=== PATIENT | female | born 1955 | race Caucasian/White ===

== ENCOUNTER 2025-02-19 13:44 | Inpatient (IN) | payer OTHER, SELFPAY ==
--- OUTSIDE RECORDS SUMMARY | 2025-02-19 14:29 | XMS_ITS | Data Portability ---
Author Organization [facility], , [facility] Address [address] [place] [address] Care Team Providers Care Systems Librarian Name Role Phone MACY MURPHY [facility] [phone] Assessment No assessment recorded. Plan of Treatment Reminders Order Date Submit Date Provider Last Modified By Organization Details Last Modified Time Details Appointments None recorded. Lab biopsy, skin - right shoulder 2018 019 [employer] [facility] (Centralized Electronic Ordering - All Locations), Patient Can Go To The Location Of Their Choice, [facility] 9 14:20:32 biopsy, skin - Skin Bx. right shoulder 2018 019 [facility], [address] [place] [address], [address], 9 13:25:48 TSH, serum or plasma 2018 019 [facility], [address] [place] [address], [address], 9 13:45:25 lipid panel, serum 2018 019 [facility], [address] [place] [address], [address], 9 12:26:55 BMP, serum or plasma 2018 019 [facility], [address] [place] [address], [address], 9 12:26:54 TSH, serum or plasma 2017 018 [facility], [address], [place], [address], 8 14:23:37 Referral None recorded. Procedures None recorded. Surgeries None recorded. Imaging MAMMO, screening , tomosynth esis, bilateral 2018 019 [facility] (Imaging), [address], [place], [address], 9 10:48:31 Medication Orders levothyro xine 75 mcg tablet 2017 018 [id number], [address] [facility], [place], [place], [id number], 9 09:56:15 Patient TargetsNo targets recorded. Patient Instructions Encounter Date Encounter Id Patient Instructions Last Modified By Organization Details Last Modified Time 04/04/2019 [id number] well visit, wome n 50 to 65: care instructions [email or web address] Not available 04/07/2019 17:51:16 After a discussion of treatment options, which included consideration of best practices, patient preferences, and the patient's individual lifestyle and treatment goals, as well as consideration and attempted mitigation of any barriers to meeting the patient's goals, the above treatment plan and objectives were adopted. Good to see you today! - Please review the patient education provided to you today. - Take your medications as prescribed, and please let us know if you have any unwanted or unexpected side effects. - Keep your follow-up appointments as scheduled. - Please let us know if you are worse in any way, or if you have any further questions or concerns. - We are digital solutions architect 24 hours a day, 7 days a week by phone: [phone]. [email or web address] Not available 04/07/2019 17:55:46 05/22/2019 [id number] Wound Care Keep wound clean and dry. Change dressing daily as instructed. Use bacitracin or neosporin to prevent infection. Call the office if you develop redness, pain, swelling, or discharge from the wound. [email or web address] Not available 05/22/2019 12:18:27 Reason for Referral None Reported. Results Created Date Observation Date Name Description Value Unit Range Abnormal Flag Note LastModifiedBy Organization Detail LastModifiedTime 11/12/19 18 11/12/2017 TSH, serum or plasm a TSH 6.30 uIU/m L 0.50-6 .00 high The Ameri can Colle ge of Endoc rinol ogy and Ameri can Thyro id Assoc iatio n recom mend goal TSH value s betwe en 0.4-4 .0 mIU/m L. Not Available [address], [address], 11/12/2017 13:28:48 01/15/20 18 01/14/2018 TSH, serum or plasm a TSH 0.83 uIU/m L 0.50-6 .00 The Ameri can Colle ge of Endoc rinol ogy and Ameri can Thyro id Assoc iatio n recom mend goal TSH value s betwe en 0.4-4 .0 mIU/m L. Not Available [address], [address], 01/14/2018 14:23:37 05/19/20 19 05/19/2019 BMP, serum or plasm a glucose 91 mg/dL 70-100 Not Available [address], [address], 05/19/2019 12:26:54 05/19/2005/19/2019 BMP, serum or plasm a BUN 13 mg/dL 7-18 Not Available [address], [address], 05/19/2019 12:26:54 05/19/2005/19/2019 BMP, serum or plasm a creatinine 0.7 mg/dL 0.8-1. 3 low Not Available [address], [address], 05/19/2019 12:26:54 05/19/2005/19/2019 BMP, serum or plasm a B/C 18.6 ratio Not Available [address], [address], 05/19/2019 12:26:54 05/19/2005/19/2019 BMP, serum or plasm a GFR -non 94.7 mL/mi n Recom jairo d GFR by the Natio nal Kidne y Found ation >60 mL/mi n/1.7 3m2 - Eneida l <60 mL/mi n/1.7 3m2 - Chron ic Kidne y Disea se <15 mL/mi n/1.7 3m2 - Kidne y Failu re Not Available [address], [address], 05/19/2019 12:26:54 05/19/20 19 05/19/2019 BMP, serum or plasm a GFR - if 108.9 mL/mi n For Afric an Ameri can patie nts: Resul ts Multi plied by 1.21 Not Available [address], [address], 05/19/2019 12:26:54 05/19/2005/19/2019 BMP, serum or plasm a sodium 144 mmol/ L 136-14 5 Not Available [address], [address], 05/19/2019 12:26:54 05/19/2005/19/2019 BMP, serum or plasm a potassium 5.0 mmol/ L 3.5-5. 1 Not Available [address], [address], 05/19/2019 12:26:54 05/19/2005/19/2019 BMP, serum or plasm a chloride 107 mmol/ L 96-107 Not Available [address], [address], 05/19/2019 12:26:54 05/19/2005/19/2019 BMP, serum or plasm a anion gap 8.5 5.0-15 .0 Not Available [address], [address], 05/19/2019 12:26:54 05/19/2005/19/2019 BMP, serum or plasm a CO2 29 mmol/ L 21-32 Not Available [address], [address], 05/19/2019 12:26:54 05/19/2005/19/2019 BMP, serum or plasm a calcium 9.4 mg/dL 8.5-10 .3 Not Available [address], [address], 05/19/2019 12:26:54 05/19/2005/19/2019 lipid panel , serum cholesterol 232 mg/dL <200 mg/dl Aleida able 200-2 39 mg/dl Borde rline High >240 mg/dl High Not Available [address], [address], 05/19/2019 12:26:55 05/19/2005/19/2019 lipid panel , serum triglyceride s 102 mg/dL <150 mg/dL Eneida l 150-1 99 mg/dL Borde rline High 200-4 99 mg/dL High >500 mg/dL Very High Not Available [address], [address], 05/19/2019 12:26:55 05/19/2005/19/2019 lipid panel , serum direct HDL 63 mg/dL <40 mg/dl - Major Risk for CHD >60 mg/dl - Negat clau Risk for CHD Not Available [address], [address], 05/19/2019 12:26:55 05/19/2005/19/2019 LDL, calcu lated , serum (OBS) LDL - calculated 148.6 RISK CATEG ORY LDL GOAL _ CHD or CHD Risk Equiv alent s <100 mg/dl (10-y ear risk >20%) 2+ Risk Facto rs <130 mg/dl (10-y ear risk <= 20%) 0-1 Risk Facto r? <160 mg/dl ? Ana t all peopl e with 0-1 risk facto r have a 10 year risk <10%, thus 10 year risk asses ment in peopl e with 0-1 risk facto r is not necreggie alex. Not Available [address], [address], 05/19/2019 12:26:56 05/19/20 19 05/19/2019 TSH, serum or plasm a TSH 1.28 uIU/m L 0.50-6 .00 The Ameri can Colle ge of Endoc rinol ogy and Ameri can Thyro id Assoc iatio n recom mend goal TSH value s betwe en 0.4-4 .0 mIU/m L. Not Available [address], [address], 05/19/2019 13:45:25 05/22/20 19 05/22/2019 biops y, skin results Patie nt Name: ELLA Thacker, VIKRAM Lab Acces [place] #: [id number] Patie nt : 1954 (Age: 64) Colle ction Date: 2018 Acces [place] Date: 2018 Sign Out Date: 2018 Tissu e Sourc e: 1:RIG HT SHOUL DONG SKIN BX Final Diagn osis: Skin, right shoul dong (biop sy): - Basal cell carci noma, infil trati ve/sc leros ing/m orphe aform type. - The tumor exten ds to the base and perip heral shadia ns of the submi tted tissu e. Prima ry Patho logis t:Joel Ledezma M.D. elect poonam horvath marly d out by: Keo Ledezma M.D. 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 Recei alyse in forma divya is a soft white skin punch with a diame ter of 0.4 cm and a depth of 0.3 cm. The speci men is inked , bisec avtar and is entir sally submi tted. 1-2 piece s, x3, EOE. (EG)* Phone #: [phone], On-[place] ll Patho logis t: [id number] Not Available [facility] (Centralized Electronic Ordering - All Locations) Patient Can Go To The Location Of Their Choice, [address] 05/26/2019 13:10:41 06/24/2006/24/2019 biops y, skin results Patie nt Name: VIKRAM HERNADEZ Lab [place]es [place] #: [id number] Patie nt : 1954 (Age: 64) Colle ction Date: 2018 [place]es [place] Date: 2018 Sign Out Date: 2018 Tissu e Sourc e: 1:RIG HT SHOUL DONG Final Diagn osis: Skin, right shoul dong (shav e excis ion): - Resid ual Basal cell carci noma, infil trati ve type. - The tumor exten ds to the base of the submi tted tissu e. - Lowrys l scar with react clau biops y site miranda es. Prima ry Patho logis t:Hanna canseco M.D. elect poonam pratt d out by: Renny canseco M.D. / [facility] Clini ana Histo ry: Neopl asm of uncer tain behav ior of skin Gross Descr iptio n: Label ed rig t shoul dong . Recei alyse in forma divya is a 1.3 x 1.1 x 0.1 cm soft head, brown varie gated skin shave . The speci men is inked , seria lly secti oned and is entir sally submi tted. 1 and 2-2 piece s, x2, shave orien tatio n. (EG)* Phone #: [phone], On-N[place] ll Patho logis t: [id number] Not Available [facility] (Centralized Electronic Ordering - All Locations) Patient Can Go To The Location Of Their Choice, [address] 06/26/2019 18:48:06 02/12/2002/12/2020 SARS CoV 2 RNA (COVI D-19) , QL, senior interactive developer-P CR, respi rator y speci men covid-19 source NASAL SWAB Not Available [facility] (Out[facility]) [address] [place], [address], 02/12/2020 10:54:04 02/12/20 20 02/12/2020 SARS CoV 2 RNA (COVI D-19) , QL, senior interactive developer-P CR, respi rator y speci men covid testing status In-rakan se testin g being perfor med Not Available [facility] (Outpatient) [address] [place], [address], 02/12/2020 10:54:04 02/12/20 20 02/12/2020 SARS CoV 2 RNA (COVI D-19) , QL, senior interactive developer-P CR, respi rator y speci men specimen source NASAL Not Available [facility] (Out[facility]) [address] [place], [address], 02/12/2020 11:30:32 02/12/20 20 02/12/2020 SARS CoV 2 RNA (COVI D-19) , QL, senior interactive developer-P CR, respi rator y speci men sars-cov-2 result Negati ve negati ve Negat clau resul ts do not precl ude SARS- CoV-2 infec tion and shoul d not be used as the sole basis for patie nt manag ement decis ions. Negat clau resul ts must be combi daisha with clini ana obser vatio ns, patie nt histo ry, and epide miolo gical infor matio n. Testi ng was perfo rmed using the Abbot t ID NOW COVID -19 assay perfo rmed on the Abbot t ID NOW Instr ument . Fact sheet s for this Emerg ency Use Autho bre ion can be found at the [employer] links : For Healt hcare Provi ders: https ://ww w.fda .gov/ media /7685 23/do wnloa d For Patie nts: https ://ww w.fda .gov. media /1365 24/do wnloa d. Not Available [facility] (Outpatient) [address] [facility], [place], [address], 02/12/2020 11:30:32 02/13/20 20 02/16/2020 patho logy study path report [facility] [address] [place] [address] Lab Direc tor: Melisa ramos MD Surgi ana Patho logy Repor t Acces [place] #: [id number] FINAL PATHO LOGIC DIAGN OSIS: A. STOMA CH ANTRU M, BIOPS Y: No patho logic abnor malit y. B. GASTR OESOP HAGEA L JUNCT ION, BIOPS Y: Squam ocolu mnar junct ion with react clau miranda es. Negat clau for compl ete intes tinal metap lasia and dyspl kasey. C. MID ESOPH CARMEN, BIOPS Y: Gastr ic mucos a with no patho logic abnor malit y (poss ible carry over) Discu ssed with Dr. Brijesh zambrano on . Genevieve ctron icall y Marly d Out By Derek walsh MD By his/h er agustina blanco above , the patho logis t liste d as rosario ochoa the Final Diagn osis certi fies that he/sh e has perso anh revie wed this case and confi rmed or corre cted the diagn osis. CLINI ANA HISTO RY Dysph agia SPECI MENS SUBMI TTED: A: GASTR IC ANTRU M, BIOPS Y B: GASTR OESOP HAGEA L JUNCT ION BIOPS Y C: MID ESOPH CARMEN, BIOPS Y GROSS DESCR IPTIO N A. GASTR IC ANTRU M, BIOPS Y: Forma divya: 2 fragm ents 0.3 cm each A1 total . B. GASTR OESOP HAGEA L JUNCT ION BIOPS Y: Forma divya: 2 fragm ents 0.1 and 0.2 cm B1 total . C. MID ESOPH CARMEN, BIOPS Y: Forma divya: 4 fragm ents 0.1 cm each C1 total . DN Gross ing Staff : LEYLA Patie nt Name: VIKRAM HERNADEZ : 1954 (Age: 64) Sex: F 3 Insti tutio n: [facility] Locat ion: [facility] Date of Opera tion: Date of Acces [place]: Repor avtar: 2019 15:06 Resul ts To: Scott zambrano MD, BS Raoul anthony MD Not Available [facility] (Out[facility]) [address] [place], [address], 02/16/2020 15:06:55 05/22/20 19 05/22/2019 MAMMO , scree jyoti, tomos ynthe sis, bilat eral OBSERV ATION: COMPAR EYAD: 2010 throug h 2015 Bilate ral digita l mammog dilan utiliz ing 3D tomosy nthesi s with 2D recons tructi on. Comput er-aid ed detect ion system also utiliz ed. The breast s are compos ed of scatte red fibrog landul ar tissue . The overal l appear ance of the breast s is unchan ged. No new mass, asymme try, calcif icatio ns, or skin findin gs of concer n have become appare nt. IMPRES [place]: Stable appear ance of the breast s. No radiog raphic eviden ce of malign calvin. In the absenc e of a suspic ious palpab le abnorm ality, routin e screen ing mammog dilan is recomm ended. BI-RAD S CATEGO RY 1 - NEGATI VE Result letter sent to dimitry t. Densit y - B POS: [facility] Electr onical ly signed Readrhiannon ochoa Physic bladimir: Shreyas ward MD [email or web address] [facility] ([facility]) [address], [place], [address], 06/05/2019 07:02:03 Result Notes None recorded. Problems Name Problem SNOMED Code Status Onset Date Resolution Date Notes Provider Name and Address Organization Details Recorded Time Skin lesion 27018353 Active 2015 Freya Espitia MD [address] [place] [address] [place], [address], [facility] 6 10:03:52 Major depressive disorder 234224610 Active 2015 Freya Espitia MD [address] [place], [place] [address], [address], [facility] 6 10:05:32 Hypothyroidism 60889446 Active 2017 Freya Espitia MD [address] [place] [address] [place], [address], [facility] 8 11:48:44 Problem Notes None recorded. Procedures Surgical History Date Name Laterality Status Provider Name and Address Organization Details Recorded Time 019 Electrodessication and Curettage completed Shreyas Carney MD [address] [place] [address], [phone], [facility] 06/24/2019 17:58:23 019 Suture/staple Removal completed Sherri Kent LPN [facility] 05/29/2019 13:42:27 019 Biopsy skin -Punch completed Yanique Hardin NP [address] [place] [address], [phone], [facility] 05/22/2019 12:17:34 Imaging Results Imaging Date Name Status LastModified by Organiz ation Details LastModified Time 05/22/2019 MAMMO, screening, tomosynthesis, bilateral completed [email or web address] [facility]) [address], [place], [address], 06/05/2019 07:02:03 Procedure Notes None recorded. Medical Equipment None Reported. Allergies Allergen ID Allergen Name Allergen Category Reaction Reaction Severity Criticality Documentation Date Start Date Code Code System Note Provider Name and Address Organization Details Recorded Time doxycycli ne Not available rash Not available Not available 04/28/2017 3640 RxNorm - while being treat ed for lyme Rebeca Ortiz D.O. [address] [place], [address], [facility] 7 10:54:47 Lamictal medicatio n rash severe Not available 04/28/2017 5[address]27 2 RxNorm - Johny Weinberg on Freya Espitia MD [address] [place] [address], [place], [address], [facility] 7 09:21:26 Medications Name Sig Start Date Stop Date Status Note LastModified by Organization Details LastModified Time bupropion HCl SR 150 mg tablet,12 hr sustained-r elease Take 1 tablet 3 times a day by oral route. 07/24 completed Not Available Not Available Not Available venlafaxine 75 mg tablet Take 1 tablet every day by oral route. 04/26 completed Not Available Not Available Not Available benzonatate 200 mg capsule Take 1 capsule 3 times a day by oral route as needed for 14 days. 05/03 completed Not Available Not Available Not Available Claritin 10 mg tablet Take 1 tablet every day by oral route for 30 days. 2014 active Not Available Not Available Not Avai lable sertraline 100 mg tablet Take 1 tablet twice a day by oral route. 05/03 completed Not Available Not Available Not Available venlafaxine ER 150 mg capsule,ext ended release 24 hr take 2 capsules by mouth once daily 04/04 completed Not Available Not Available Not Available cyanocobala min (vit B-12) 1,000 mcg tablet take 1 tablet by mouth once daily active Not Available Not Available No t Available melatonin 3 mg tablet Take 1 tablet as needed by oral route at bedtime. 09/17 completed Not Available Not Available Not Available lithium carbonate ER 450 mg tablet,exte nded release Take 1 tablet every day by oral route. 04/04 completed Not Available Not Available Not Available lamotrigine 25 mg tablet 2 tablets daily 04/28 completed Not Available Not Available Not Available levothyroxi ne 75 mcg tablet take 1 tablet by mouth once daily active Not Available Not Available No t Available Macrobid 100 mg capsule Take 1 capsule every 12 hours by oral route for 3 days. 07/30 completed Not Available Not Available Not Available alprazolam 0.5 mg tablet 06/24 completed Not Available Not Available Not Available trazodone 100 mg tablet Take 1 tablet every day by oral route for 14 days. active Not Available Not Available No t Available levothyroxi ne 50 mcg tablet Take 1 tablet every day by oral route as directed. 2018 active Not Available Not Available Not Avai lable divalproex ER 500 mg tablet,exte nded release 24 hr 2 at bedtime 11/21 completed Not Available Not Available Not Available omeprazole 20 mg capsule,del ayed release 04/04 completed Not Available Not Available Not Available doxycycline hyclate 100 mg tablet Take 1 tablet twice a day by oral route for 21 days. 04/28 completed Not Available Not Available Not Available divalproex ER 250 mg tablet,exte nded release 24 hr 09/17 completed Not Available Not Available Not Available doxycycline hyclate active Not Available Not Available Not Available Zostavax (PF) 19,400 unit/0.65 mL subcutaneou s suspension 04/26 completed Not Available Not Available Not Available GaviLyte-N 420 gram oral solution 07/24 completed Not Available Not Available Not Available lurasidone 40 mg tablet Take 1 tablet twice a day by oral route. 04/04 completed Not Available Not Available Not Available Banophen 50 mg capsule TAKE 1 CAPSULE BY MOUTH AT BEDTIME 04/26 completed Not Available Not Available Not Available bupropion HCl XL 450 mg 24 hr tablet, extended release 04/04 completed Not Available Not Available Not Available Trintellix 5 mg tablet Take 3 tablets every day by oral route. active Not Available Not Available No t Available bupropion HCl 150 mg tablet,12 hr sustained-r elease(smok ing deterrent) Take 1 tablet 3 times a day by oral route. 02/14 completed Not Available Not Available Not Available Vitals Date Recorded Body height Body mass index (BMI) Body weight Heart rate Systolic blood pressure Diastolic blood pressure Provider Name and Address Organization Details Last Updated DateTime 8 162.56 cm 27.4 kg/m2 91693.3 4 g 70 /min 116 mm[Hg] 72 mm[Hg] Suha Pham [facility] 8 11:26:54 Date Recorded Body height Body mass index (BMI) Body weight Heart rate Provider Name and Address Organization Details Last Updated DateTime 04/04/2019 161.93 cm 24.6 kg/m2 39531.12 g 60 /min Brittany Mart[facility]nez [facility] 04/04/2019 11:26:25 Date Recorded Body height Body mass index (BMI) Body weight Oxygen saturation Oxygen saturation in Arterial blood by Pulse oximetry Heart rate Systolic blood pressure Diastolic blood pressure Provider Name and Address Organization Details Last Updated DateTime 9 161.93 cm 25.4 kg/m2 86266.0 8 g 97 % 97 % 105 /min 116 mm[Hg] 80 mm[Hg] Suha Pham [facility] 9 11:29:50 Date Recorded Body height Body mass index (BMI) Body weight Heart rate Systolic blood pressure Diastolic blood pressure Provider Name and Address Organization Details Last Updated DateTime 9 161.93 cm 25.1 kg/m2 19375.8 9 g 60 /min 120 mm[Hg] 82 mm[Hg] Johnathon Auguste [facility] 9 10:19:58 Social History Question Answer Notes LastModified by Organizat ion Details LastModified Time Tobacco Smoking Status Never Smoker [facility] 15:11:33 Do You Have An Advance Directive? Yes - Marquita Information not available 02/03/2013 Do You Wear A Helmet When Biking? Yes Information not available 02/11/2014 What Is Your Level Of Caffeine Consumption? Moderate Coffee Information not available 02/03/2013 How Much Tobacco Do You Chew? None Information not available 02/03/2013 What Type Of Diet Are You Following? VEGETARIAN Eats Fish Information not available 02/03/2013 Which Illicit Or Recreational Drugs Have You Used? None Information not available 02/03/2013 Education 4 Year College Informatio n not available 02/03/2013 How Many Days In The Past Year Have You Had A Heavy Drinking Consumption (4+ Female, 5+ Male)? 0 Information not available 07/24/2016 Are There Any Guns Present In Your Home? No Information not available 02/03/2013 Live Alone Or With Others? With Others Information not available 02/03/2013 Patient Has Health Care Proxy Signed And In Chart No [email or web address] Information not available 09/05/2018 Marital Status - Marquita mortensen Information not available 02/03/2013 Mosquito Repellent Used Routinely No Information not available 02/03/2013 What Was The Date Of Your Most Recent Tobacco Screening? 06/24/2019 [email or web address] Information not available 06/24/2019 How Many Children Do You Have? 1 Son Information not available 02/03/2013 Seat Belts Used Routinely Yes Information not available 02/03/2013 Are You Sexually Active? Yes Information not available 02/03/2013 Smoke Alarm In Home Yes Information not available 02/03/2013 How Much Tobacco Do You Smoke? No Information not available 05/22/2019 General Stress Level Medium Information not available 02/11/2014 Do You Use Sunscreen Routinely? Yes Information not available 02/03/2013 Sex: Unknown Functional Status Question Answer Note LastModified by Organizat ion Details LastModified Time What is your level of alcohol consumption? None [email or web address] Information not available 04/26/2017 Do you or have you ever used smokeless tobacco? 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 Never used electronic cigarettes Information not available 05/22/2019 Mental Status None recorded. Family History Nothing Reported. Medical History No medical history recorded. Gynecological HistoryNo gynecological history recorded. Obstetrics History GPAL:G 0 P 0 0 0 0 Immunizations Vaccine Type Date Status Note Provider Nam e and Address Organization Details Recorded Time Tdap 4 completed Not Available [facility] 10/25/2019 02:38:48 Influenza, split virus, trivalent, PF 4 completed Not Available [facility] 10/25/2019 02:26:42 Influenza, split virus, quadrivalent, PF 6 completed Not Available [facility] 10/25/2019 02:21:04 zoster live 7 completed Not Available [facility] 10/25/2019 02:21:36 influenza, unspecified formulation 7 completed Suha Pham CMA [facility] 09/17/2017 10:23:10 Past Encounters Encounter ID Performer Location Encounter Start Date Encounter Closed Date Diagnosis/Indication Diagnosis SNOMED-CT Code Diagnosis ICD10 Code Diagnosis Note [id number] Freya Espitia MD , [facility], OFFICE [address] [place] [address] 02/03/2013 14:18:27 02/04/2013 08:22:33 [id number] MD RENETTA Barnes, [facility], OFFICE [address] [place] [address] 02/11/2014 09:31:07 02/11/2014 10:16:49 Adult health examination [id number] see Risk Assessment and Lifestyle Change Counseling section above Counseling [id number] Screening for malignant neoplasm of cervix [id number] Administra tion of diphtheria, pertussis, and tetanus vaccine [id number] Hyperlipidemia 69629033 [place]res RIsk - 8.3%. Has FH of high cholestero l. No other risks. Will cont to monitor. [id number] LINDEN Willis, [facility], OFFICE [address] [place] [address] 07/27/2014 12:55:47 07/27/2014 16:20:36 Urinary incontinence [id number] Follow up in 3 weeks. Kegels 4x 15 sets daily recommende d. Urinary tr act infectious disease [id number] Recent increase in non urge urinary incontinen ce. No backpain, chills, fever. UA with blood, leukocytes . WIll treat empiricall y with macrobid. Also recommend start Kegel exercises working up to 4 sets of 15/day. Follow up 2 weeks, sooner if symptoms persist. [id number] LINDEN Willis, [facility], OFFICE [address] [place] [address] 08/10/2014 09:45:27 08/10/2014 10:11:51 Influenza vaccine needed [id number] 106 Urinary tr act infectious disease 67019724 Resolved with macrobid. Reviewed basic urinary tract health-64 oz water daily, cotton underwear, wiping front to back. Voiding frequently with first urge. Follow up as needed Urinary incontinence [id number] Resolved with treatment of UTI. Continue Kegels 4x 15 sets daily. [id number] Annie Jones MD , [facility], OFF[address], [facility]ated [facility] [place] [address] 12/24/2014 13:14:46 12/24/2014 14:14:56 Acute upper respiratory infection 36844325 Suspect either back-to-ba ck viral infections or viral infection with superimpos ed allergy (given time of year, some allergic sx, mold in house) Trial claritin and tessalon, supportive care Reviewed that post-viral sx may persist for 1-2 more weeks We agreed that Ms. Delvalle will call or come in if she develops new fever> 100.4, worsening cough or DIOP, or failure to improve in approx. 2weeks. [id number] Livia Schroeder PA-C , [facility], OFFICE [address] [facility] [place] [address] 05/03/2015 10:42:37 05/03/2015 11:26:09 Dyspnea 155618231 Accompanyi ng symptom of focal, dull pain with deep breath. 5 weeks duration, no risk factors for PE, pleurisy. Would expect musculoske letal issue to change in character with extended period of symptoms. Other than mild focal TTP at area of c/o , exam including O2 sat with exertion completely normal. Check CXR. If normal, proceed with DDimer at [facility] lab, and CBC, WESR, CRP, BMP. Will review with nikhil ochoa mD. [id number] Macy Murphy [facility], [address] [place] [address] 06/01/2015 09:22:08 06/02/2015 15:04:42 Thoracic back pain [id number] Macy Murphy [facility], [address] [place] [address] 06/08/2015 09:44:18 06/08/2015 16:13:42 Thoracic back pain [id number] [id number] Macy Murphy [facility], [address] [place] [address] 06/10/2015 08:00:20 06/10/2015 16:19:06 Thoracic back pain 640049309 [id number] [facility], [address] [place] [address] 06/17/2015 08:35:29 06/17/2015 15:34:08 Thoracic back pain [id number] Freya Espitia MD , [facility], OFFICE [address] [place] [address] [place] [address] 02/08/2016 10:56:53 02/08/2016 11:53:51 Adult health examination 476384112 Z00.00 see Risk Assessment and Lifestyle Change Counseling section above Counseling 937015003 Z71 .9 Screening mammography 24 349773 Z12.31 Screening for malignant neoplasm of colon 176107751 Z12.11 [id number] Freya Espitia MD , [facility], OFFICE [address] [place] [address] [place] [address] 07/24/2016 09:43:54 07/24/2016 10:19:07 Active or passive immunization 148709714 Z23 Screening for disorder 094393079 Z11.59 Skin lesion 71832816 L98 .9 Major depr essive disorder 714335112 F32.9 Major mood issues. Major depression that is very severe. Just came out of a 7 week bout of major depression . I asked her to see [facility] and to talk to her therapist about the possibilit y of bipolar II [id number] Freya Espitia MD , [facility], OFFICE [address] [place] [address] [place] [address] 02/14/2017 12:29:41 02/14/2017 13:48:42 Pain in lower limb 77442583 M79.604 Right leg pain - not explained easily by me. Feels like a deep hematoma to me. I asked to have her give it more time to heal. Might need an xray in the future if not improving [id number] Freya Espitia MD , [facility], OFFICE [address] [place] [address] [place] [address] 03/29/2017 09:23:06 03/29/2017 10:08:07 Adult health examination 209625167 Z00.00 see Risk Assessment and Lifestyle Change Counseling section above. Very healthy. Screening for malignant neoplasm of cervix 672381352 Z12.4 Major depr essive disorder 949032620 F32.9 Major mood issues. Major depression that is very severe. Sees [facility] at the [facility]. Doing well on venlafaxin e. Active or passive immunization 596937223 Z23 Screening for disorder 815740734 Z11.59 [id number] Yanique Hardin NP , [facility], OFFICE [address] [place] [address] 04/26/2017 17:04:34 04/27/2017 08:50:14 Lyme disease 92399396 A69.20 Clinical dx based on sxs and likely exposure to ticks. Reviewed medication risks, benefits, side effects, and limitation s. REviewed return precaution s. [id number] Rebeca Ortiz D.O. , [facility], OFFICE [address] [place] [address] 04/28/2017 10:06:25 04/28/2017 11:08:54 Eruption 230103822 R21 Likely, secondary lamotrigin e or doxycyclin e a boths medication s recently started. Recommend stopping both medication s, start Benadryl 25 mg every 4-6 hours as needed, already has at home. Monitor for worsening signs and symptoms, SJS, ER precaution s given. Major depr essive disorder 983625395 F32.9 Enrolled in partial hospitaliz ation program, supportive partner, has emergency contact info if Vikram should decompensa te with discontinu ation of lamotrigin e. Lyme disease 18666580 A6 9.20 Recommend discussing alternativ e treatments to doxycyclin e with PCP. such as amoxicilli n. Follow-up in 48 hours scheduled for 7:25 visit on 04/30/[address] Larkin [id number] Freya Espitia MD , [facility], [address] [place] [address] 04/30/2017 07:22:15 04/30/2017 09:32:50 Eruption 519856827 R21 Quite concerning for Tracy Floyd rash. She is off everything now and she appears extremely well clinically today. SJS is really a 8-10 day course. I spent > 25 mins discussing this and gave very clear warning or worrisome signs. [id number] Freya Espitia MD , [facility], OFFICE [address] [facility] [place] [address] 09/17/2017 10:15:07 09/17/2017 10:48:38 Hypothyroidism 87411780 E03.9 Due to lithium? WIll start treatment and check in 8 weeks. Major depr essive disorder 792570034 F32.9 Major mood issues. Major depression that is very severe. Sees Melisa [facility] at the [facility]. Doing well on [place], lurasidone , divalproex . [id number] Freya Espitia MD , [facility], OFFICE [address] [facility] [place] [address] 11/21/2017 11:15:34 11/21/2017 14:11:51 Major depressive disorder 706784634 F32.9 Major mood issues. Major depression that is very severe. Sees Mel[facility] at the [facility]. Doing well on Es[place], lurasidone (latuda). Hypothyroidism 14290647 E03.9 Trying to get stable with this new dx. Her mother had thyroid problems at this same age. Was lithium the cause? [id number] Villa Crawford Jr. MD , [facility], OFFICE [address] [facility] [place] [address] 04/04/2019 11:06:23 04/04/2019 12:09:33 Adult health examination 174833674 Z00.00 Routine anticipato ry guidance discussed. Strongly encouraged good adherence to medication regimen and disease risk reduction with healthy lifestyle. Pap- UTD 2017 Mammo- 2016. No family hx. Colonoscop y- 2015, recommende d 5 year repeat. Due 2020. will get updated labs. Depression screening 171 707379 Z13.89 depression screening tool administer ed, entered into emr, scored and discussed, time greater than 7.5 minutes Screening mammography 24 533202 Z12.31 routine mammo ordered Major depr essive disorder 623782634 F32.9 major depression , managed by Dr. Martinez through the [facility]. Recently spent 4 months inpatient. Currently getting ECT with reports of improvemen t. Has crisis plan. Weekly counseling , good support network. States she is safe without red flag symptoms of concern today. Hypothyroidism 42103316 E03.9 due for updated labs. Skin lesion 53586002 L98 .9 skin lesion over the R shoulder with some concerning features. Offered cryo but declines. Will book for bx of the site. [id number] Yanique Hardin NP , [facility], OFF[address], [facility] [place] [address] 05/22/2019 10:44:56 05/22/2019 12:00:59 Neoplasm of uncertain behavior of skin 27296990 D48.5 Punch biopsy done today, 3 sutures placed. Pt tolerated well. Reviewed wound care instructio ns. RTO 1 week for suture removal. [id number] Yanique Hardin NP , [facility], OFFICE [address] [place] [address] 05/29/2019 13:34:08 05/29/2019 13:43:55 Skin lesion 53235550 L98.9 [id number] Shreyas Carney MD , [facility], OFFICE [address] [facility] [place] [address] 06/24/2019 10:02:49 06/24/2019 12:55:47 Basal cell carcinoma of truncal skin 248406967 C44.519 F/u PCP for monitoring for recurrence . Return for fever, redness, discharge. Health Concerns Section Related Observation LastModified by Organization Detai ls LastModified Time None Recorded Concern Status LastModified by Organization Details LastModified Time None Recorded Advance Directives Directive Y: - Marquita Payers Encounter Date Sequence Insurance Name Policy Number Policy Judge Covered Member ID Judge Member ID Guarantor Name 11/21/2017 1 [facility] (O) [id number] Marquita Humphrey [id number] Vikram Boesel 04/04/2019 1 [facility] [id number] Vikram Boesel [id number] Vikram Boesel 05/22/2019 1 [facility] [id number] Vikram Boesel [id number] Vikram Boesel 05/29/2019 1 [facility] [id number] Vikram Boesel [id number] Vikram Boesel 06/24/2019 1 [employer] (HMO) [id number] Vikram Gundersonmagy [id number] Vikram Gundesronmagy Notes Date Note Type Note Provider Name and Address Organization Details Recorded Time 11/21/2017 text/html Hypothyroid. Sev ere depression - 3 hospitalizations 2017. Mood is better. Freya Espitia MD [address] [place] [address], [address], [facility] 11/21/2017 11:52:10 04/04/2019 text/html Physical Exam/FemaleReported bypatient.PHAPatient is here for a Wellness Visit. She describes her health status as good. Patient's health is the same as last year.Risk Assessment and Lifestyle Change Counseling 50-64Reported bypatient.Coronary Artery Disease Risk Assessment:Family History of Coronary Artery Disease; No personal history of diabetes; No history of peripheral vascular disease, AAA, or carotid disease; No personal history of coronary artery disease Breast Cancer Risk Assessment:No family history of breast cancer; No history of breast cancer or dcis Colon Cancer Risk Assessment:No family history of colon polyps or cancer;History of adenomatous colon polyp Lung Cancer Risk Assessment:Never smoked; No asbestos exposure Fracture Risk Assessment:No unexplained fracture Cognitive/Behavioral Risk Assessment:Personal history of mental illnes;Family history of mental illness(several relatives) Safety Risk Assessment:No evidence of abuse/neglect; Do you feel safe in your current relationship?YES; Concerns for alcohol or drug abuse?NO Diet:Counseled about appropriate portion size; Counseled about eating a diet low in trans and saturated fats and high in fiber, fruits and vegetables; Counseled about appropriate calcium intake and good dietary sources of calcium.; Counseled about the importance of maintaining a positive calcium balance and taking 1000 iu Vitamin D daily.; Counseled about decreasing carbohydrates; Counseled about decreasing salt in diet; Discussed the value of a Mediterranean diet , and eating more fruits and vegetables Exercise counseling:Discussed the importance of daily physical activity; gym 2 times per week. 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 Walking daily. Safety:Counseled about protecting skin from the sun and lowering the risk of skin cancer; Counseled about avoiding excessive and unsafe alcohol intake; Counseled about safer sexual practice; Counseled about use of helmets for high velocity activiities; Counseled about home safety including use of smoke detectors, CO detectors, keeping home water temperature less than 120; Counseled about use of seat belts Family Planning:Not using control Tinnitus- Bilateral. Last year. Ringing all the time, more prominent when tired. Does not note any hearing loss. Skin lesions- R shoulder lesion for the last 6 months. Sometimes this will itch and crack, no bleeding. 2 months in [place] and 2 months at [facility]. Has been getting ECT which she feels helped significantly.Seeing Dr. Martinez through the [facility]. She is currently changing meds from Wellbutrin to Trintilix. Sees Dr. Martinez once per month. Sees Brittany Arellano in [facility] once per week.Takes Trazodone for sleep, Xanax a few times per week.Has crisis plan. , Marquita, is very supportive. Pap- UTD 2017Mammo- 2016. No family hx.Colonoscopy- 2016, recommended 5 year repeat. Due 2020. JAMI Luna [address] [place], [address], [facility] 04/07/2019 17:56:30 05/22/2019 text/html Pt here for biop sy of suspicious lesion on her R shoulder. Thinks that it is new or has changed. Partner agrees that it is new. Lots of sunburns as a kid. Denies bleeding, flaking, itch. Yanique Hardin NP [address] [place], [address], [facility] 05/22/2019 12:18:49 06/24/2019 text/html BCC right shoulder Shreyas mello MD [address] [place], [address], [facility] 06/24/2019 17:59:30 OBGyn Episode No OBEpisode recorded.
--- NOTE | 2025-02-19 15:37 | PC.NURSE ---
Vikram was transferred from the [facility] in [place] [employer] and arrived to the unit by ambulance. Pleasant and cooperative with change control coordinator no interruptions to skin integrity. Denies any nicotine, alcohol or drug use. Tox panel from [place] was negative. [facility] by sitting in her care with a hose attached to attempt carbon monoxide poisoning. She became frightened and went in the house to tell her partner that she needed help. Vikram denies current SI and stated she would come to staff if that changed. Admission and Med Rec completed. PT given a tour of the unit and show to her room. HX of depression that she reports is not helped by medication. Here to receive ECT. Signed a CV with provider and denies any medical conditions.
--- NOTE | 2025-02-19 16:24 | PM.IMHP ---
History of Present Illness Date of Service: 02/19/25 Attending physician on admission: Ryanne Sherwood Chief Complaint: Medical H&P 69-year-old female with a past medical history of osteopenia, vitamin-D deficiency, hypertension, sleep apnea, basal cell carcinoma, hypothyroidism, history of Macario Floyd syndrome, hyperlipidemia, stress incontinence, chronic back pain, generalized anxiety disorder major depressive disorder was transferred here from the [place] for psychiatric care dress suicide attempt with carbon monoxide poisoning. A carboxyhemoglobin level was 1.4 %. She denies any chest pain, palpitations, nausea vomiting or visual changes. It was recommended that she was admitted to inpatient psychiatry for treatment. An EKG was negative for any ischemia, normal sinus rhythm. On exam she is alert and cooperative. Denies any medical concerns. Tox screen negative, laboratory values within normal limits. Patient noted to be taking dextromethorphan for cough, this is due to a cough related to her bupropion. Review of Systems Review of Systems: Denies any shortness of breath, chest pain, dizziness, lightheadedness, abdominal pain or discomfort, nausea vomiting or diarrhea Yes all other systems are reviewed and are negative PMFSH Social History Household Members: Significant Other and Children Housing: House Do you presently have visiting nurse or other home services: No Patient Tobacco Use Status: Never used Tobacco e-Cigarette/Vaping Use: Never Used Have you been hit, kicked, punched, or otherwise hurt by someone within the past year? If so, by whom?: No Do you feel safe in your current relationship?: No Is there a partner from a previous relationship who is making you feel unsafe now?: No Are you made to feel afraid or neglected: No Advance Directives: No Advance Directives Information Provided: Yes Do you have a plan to hurt others: No Plan Recently lost weight without trying: No Eating poorly because of decreased appetite: No Nutrition Risks: No Nutritional Risk Patient : No : No Poor oral hygiene: No Meds Allergies Allergy/AdvReac Type Severity Reaction Status Date / Time lamotrigine Allergy Rash Verified 02/19/25 14:55 Active Medications: Current Medications Acetaminophen (Acetaminophen 325 Mg Tablet) 650 mg PO Q6H PRN PRN Reason: Headache/Pain, Scale 1-10 Al Hydroxide/Mg Hydroxide (Magnesium Hydrox/Alum Hydrox 30 Ml Oral.Susp) 30 ml PO Q6H PRN PRN Reason: Heartburn/Nausea Hydroxyzine HCl (Hydroxyzine Hcl 25 Mg Tablet) 25 mg PO Q6H PRN PRN Reason: mild anxiety Magnesium Hydroxide (Milk Of Magnesia 30 Ml Oral.Susp) 30 ml PO DAILY PRN PRN Reason: Constipation Nicotine (Nicotine 21 Mg Patch.Td24) 21 mg TRANSDERMA DAILY DEEPA Nicotine Polacrilex (Nicotine Polacrilex 2 Mg Gum) 4 mg BUCCAL Q2H PRN PRN Reason: Nicotine Cravings Trazodone HCl (Trazodone Hcl 50 Mg Tablet) 50 mg PO BEDTIME MRX1 PRN PRN Reason: Insomnia Home Medications ?Medication ?Instructions ?Recorded ?Confirmed ?Last Taken ?Type acetaminophen 650 mg tablet 650 mg PO Q6H PRN Pain (Scale 02/19/25 02/19/25 Unknown History Score 1-3) alprazolam 0.25 mg tablet 0.25 mg PO DAILY PRN Anxiety 02/19/25 02/19/25 Unknown History amlodipine 2.5 mg tablet 2.5 mg PO BID 02/19/25 02/19/25 02/19/25 History bupropion HCl 100 mg tablet,12 hr 100 mg PO BID 02/19/25 02/19/25 02/19/25 History sustained-release calcium 500 mg (as 2 tab PO DAILY 02/19/25 02/19/25 02/19/25 History carbonate)-vitamin D3 5 mcg (200 unit) tablet (Calcium 500 + D) cetirizine 10 mg tablet 10 mg PO DAILY 02/19/25 02/19/25 02/19/25 History dextroamphetamine sulfate 15 mg 15 mg PO BID 02/19/25 02/19/25 02/19/25 History capsule,extended release eszopiclone 1 mg tablet 1 mg PO BEDTIME 02/19/25 02/19/25 Unknown History fluticasone propionate 50 1 spray intranasal DAILY 02/19/25 02/19/25 Unknown History mcg/actuation nasal spray,suspension levothyroxine 50 mcg tablet 50 mcg PO DAILY 02/19/25 02/19/25 02/19/25 History lithium carbonate 600 mg capsule 600 mg PO BEDTIME 02/19/25 02/19/25 02/18/25 History polyethylene glycol 3350 17 gram 17 g PO DAILY PRN Constipation 02/19/25 02/19/25 Unknown History oral powder packet sennosides 8.6 mg tablet (senna) 8.6 mg PO BEDTIME PRN Constipation 02/19/25 02/19/25 Unknown History Physical Exam Vital Signs and Narrative: Alert and oriented X3, able to give good history. Neuro: CN II-X11 intact, no deficits, visual acuity intact EYES: PERRLA, EOM intact ENT: hearing intact Cardiac: S1 S2 RRR, no edema in Lower ext Pulmonary: lungs clear to auscultation, No increased WOB. Abdominal: BS active in all 4 quadrants, no guarding, tenderness, rebounding MSK: Strength 5/5 upper and lower extremities. Moves all extremities : no CVA tenderness no bladder distension Extremities: no edema in lower extremities Psych: mood stable, judgment and insight good Skin: Warm and dry, Intact Assessment and Plan (1) Major depressive disorder with current active episode: Qualifiers: Major depression recurrence: unspecified whether recurrent Major depression episode severity: unspecified Qualified Code(s): F32.9 - Major depressive disorder, single episode, unspecified Status: Acute Plan Major depressive disorder with suicide attempt Treatment per psychiatry team Hypertension Continue amlodipine Hypothyroidism Continue levothyroxine History of TRCAY Reports she is unable to tolerate the CPAP. Recommend follow up as outpatient Constipation Senokot as needed at bedtime. Seasonal allergies Continue sertraline, Flonase as needed Quality Stroke Does the patient have a stroke diagnosis?: No VTE Prior VTE?: No VTE Risk Level:: Medical - low VTE Device Contraindication: Treatment Not Indicated VTE Drug Contraindication: Treatment Not Indicated
[2025-02-19 19:07] VITALS: BP 136/82; PULSE 72; RESP 18; TEMP 36.9; O2SAT 98
[2025-02-19 19:08] VITALS: BMI 26.6
[2025-02-19 19:51] VITALS: BP 138/80; PULSE 65; TEMP 36.8; O2SAT 99
--- NOTE | 2025-02-19 21:57 | PHA.MEDREC ---
Pharmacy Consult ? Medication Reconciliation Pharmacy has reviewed the medication reconciliation done by nursing. [facility] Changed Bupropion hcl 100 mg to Daily per [facility] list Not BID, and [place] carbonate 450 daily pr [facility] list Not 600 mg
--- NOTE | 2025-02-19 22:22 | PHA.MEDREC ---
Pharmacy Consult ? Medication Reconciliation Pharmacy has reviewed the medication reconciliation done by nursing. [facility] to [facility].
[2025-02-19] MEDS: Lithium Carbonate 300 MG CAPSULE 600 MG PO (23:05)
[2025-02-19] MEDS: Dextroamphetamine Sulfate 5 MG TABLET 15 MG PO (23:05)
[2025-02-19] MEDS: hydrOXYzine HCL 25 MG TABLET PO (23:05)
--- NOTE | 2025-02-20 | ECG_ITS ---
Test Reason : CK RHYTHM Blood Pressure : */* mmHG Vent. Rate : 63 BPM Atrial Rate : 63 BPM P-R Int : 172 ms QRS Dur : 82 ms QT Int : 412 ms P-R-T Axes : 22 -9 76 degrees QTcB Int : 421 ms Normal sinus rhythm Nonspecific ST depression Abnormal ECG No previous ECGs available Referred By: Neri Hussein Electronically Signed By: KRISTEN OLSON MD
[2025-02-20] MEDS: traZODone HCL 50 MG TABLET PO ×2 (02:25→20:53)
[2025-02-20] MEDS: Levothyroxine Sodium 50 MCG TABLET PO (06:50)
[2025-02-20 07:36] VITALS: BP 125/60; PULSE 55; RESP 16; TEMP 36.9; O2SAT 97
--- NOTE | 2025-02-20 08:32 | HO.PSYADMNOT ---
HPI Chief Complaint: MDD Diagnostics Vital Signs (24Hr): Vital Signs - 24 hr 02/19/25 19:07 02/19/25 19:51 02/20/25 07:36 Temperature 98.4 F 98.2 F 98.4 F Pulse Rate 72 65 55 Respiratory Rate 18 16 Blood Pressure 136/82 138/80 125/60 Pulse Oximetry 98 99 97 Oxygen Delivery Method Room Air Room Air Room Air BMI result Body Mass Index 26.6 Labs 02/20/25 08:09 Meds/Allergies Meds Home Medications ?Medication ?Instructions ?Recorded ?Confirmed ?Type acetaminophen 650 mg tablet 650 mg PO Q6H PRN Pain (Scale 02/19/25 02/19/25 History Score 1-3) alprazolam 0.25 mg tablet 0.25 mg PO DAILY PRN Anxiety 02/19/25 02/19/25 History amlodipine 2.5 mg tablet 2.5 mg PO BID 02/19/25 02/19/25 History bupropion HCl 100 mg tablet,12 hr 100 mg PO BID 02/19/25 02/19/25 History sustained-release calcium 500 mg (as 2 tab PO DAILY 02/19/25 02/19/25 History carbonate)-vitamin D3 5 mcg (200 unit) tablet (Calcium 500 + D) cetirizine 10 mg tablet 10 mg PO DAILY 02/19/25 02/19/25 History dextroamphetamine sulfate 15 mg 15 mg PO BID 02/19/25 02/19/25 History capsule,extended release eszopiclone 1 mg tablet 1 mg PO BEDTIME 02/19/25 02/19/25 History fluticasone propionate 50 1 spray intranasal DAILY 02/19/25 02/19/25 History mcg/actuation nasal spray,suspension levothyroxine 50 mcg tablet 50 mcg PO DAILY 02/19/25 02/19/25 History lithium carbonate 600 mg capsule 600 mg PO BEDTIME 02/19/25 02/19/25 History polyethylene glycol 3350 17 gram 17 g PO DAILY PRN Constipation 02/19/25 02/19/25 History oral powder packet sennosides 8.6 mg tablet (senna) 8.6 mg PO BEDTIME PRN Constipation 02/19/25 02/19/25 History Allergies Allergies Allergy/AdvReac Type Severity Reaction Status Date / Time lamotrigine Allergy Rash Verified 02/19/25 14:55 Assessment & Plan Statement Statement: I have reviewed the history and physical and performed a pertinent examination on my patient. No changes have occurred unless specified. If the History and Physical was not performed prior to admission, the Hospitalist's service will be consulted for completing the admission physical. Time Spent With Patient Time: Total time managing care of this patient today ____ minutes.
[2025-02-20 08:42] VITALS: BP 125/60
[2025-02-20 08:42] LABS: Alanine Aminotransferase 23 U/L (0-31); Albumin Level 3.7 g/dL (3.5-5.0); Alkaline Phosphatase 64 U/L (39-117); Anion Gap 9 (12-20); Aspartate Amino Transferase 22 U/L (5-31); Bilirubin Total 0.3 mg/dL (0.0-1.0); Blood Urea Nitrogen 11 mg/dL (9-16); Calcium 9.6 mg/dL (8.4-10.2); Carbon Dioxide 26 mmol/L (22-29); Chloride 111 mmol/L (96-108); Cholesterol 247 mg/dL (<200); Creatinine Clr Calc Pharmacy 67.9; Estimated Glomerular Filt Rate > 60; Glucose Random 86 mg/dL (60-115); HDL Cholesterol 58 mg/dL (>40); LDL Cholesterol Calculated 157 mg/dL (<100); Potassium 4.5 mmol/L (3.3-5.1); Sodium 141 mmol/L (135-145); Triglycerides 161 mg/dL (<150)
[2025-02-20] MEDS: Dextroamphetamine Sulfate 5 MG TABLET 15 MG PO (08:42)
[2025-02-20] MEDS: amLODIPine Besylate 2.5 MG TABLET PO (08:42)
[2025-02-20] MEDS: buPROPion HCL 100 MG TABLET PO (08:42)
[2025-02-20] MEDS: Fluticasone Propionate Nasal 16 GM SPRAY 1 SPRAY NOSTRIL-B (08:43)
[2025-02-20] MEDS: Loratadine 10 MG TABLET PO (08:43)
[2025-02-20] MEDS: Calcium + Vitamin D 250 MG TABLET 1000 MG PO (08:43)
[2025-02-20 08:44] LABS: Estimated Average Glucose 103 mg/dL; Hemoglobin A1C 117.0311 umol/L; Hemoglobin A1c % 5.2 % (<6.0); Total Hemoglobin (HGBA1C) 3480.0017 umol/L
[2025-02-20] MEDS: Milk of Magnesia 30 ML ORAL.SUSP PO (09:00)
--- NOTE | 2025-02-20 10:40 | P.HPPS_ITS ---
HPI Date of Service: 02/20/25 Chief Complaint: to get ECT HPI Narrative: pt reports she has been transferred from the [place] inpatient unit in [place], [place], after an approximately 2 week stay, for ECT. per her [facility] and [facility], pt recently attempted suicide via CO poisoning, running her car in the garage with a hose pumping exhaust into the car cabin. she reportedly became freaked out after doing this for 25 minutes so went back into the house and told her what she had done. on interview with pt, Hx reviewed, meds reviewed, reconciled, prescribed. pt informed of process for ECT clearance and possibility of ECT starting as soon as sunday. pt in agreement with plan. Past Psychiatric History: hosps: more than 12 SA: h/o 2. index event of CO poisoning and a hanging attempt about 5 years ago. SIB: denies outpt: [place] [facility] does meds Medical Evaluation Reviewed: Yes PMFSH Family History: maternal aunt - unknown mental illness maternal uncles - alcohol Social History: lives in [place], [place], in a house she owns with her . her college-aged son is home with them for the summer. reports her partner works and she is retired aith 100% service connected disability payments from [facility]. 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 Substance History: denies use of all substances including nicotine/tobacco, cannabis, and alcohol. Trauma History: denies Diagnostics Vital Signs (24Hr): Vital Signs - 24 hr 02/19/25 19:07 02/19/25 19:51 02/20/25 07:36 Temperature 98.4 F 98.2 F 98.4 F Pulse Rate 72 65 55 Respiratory Rate 18 16 Blood Pressure 136/82 138/80 125/60 Pulse Oximetry 98 99 97 Oxygen Delivery Method Room Air Room Air Room Air 02/20/25 08:42 Temperature Pulse Rate Respiratory Rate Blood Pressure 125/60 Pulse Oximetry Oxygen Delivery Method BMI result Body Mass Index 26.6 Labs 02/20/25 08:09 Labs: Laboratory Results - last 48 hr 02/20/25 08:09 Sodium 141 Potassium 4.5 Chloride 111 H Carbon Dioxide 26 Anion Gap 9 L BUN 11 Creatinine 0.79 Estim Creat Clear Calc 67.9 Estimated GFR > 60 Random Glucose 86 Estimat Average Glucose 103 Hemoglobin A1c % 5.2 Calcium 9.6 Total Bilirubin 0.3 AST 22 ALT 23 Alkaline Phosphatase 64 Total Protein 6.0 L Albumin 3.7 Triglycerides 161 H Cholesterol 247 H LDL Cholesterol, Calc 157 H HDL Cholesterol 58 Meds/Allergies Meds Home Medications ?Medication ?Instructions ?Recorded ?Confirmed ?Type acetaminophen 650 mg tablet 650 mg PO Q6H PRN Pain (Scale 02/19/25 02/19/25 History Score 1-3) alprazolam 0.25 mg tablet 0.25 mg PO DAILY PRN Anxiety 02/19/25 02/19/25 History amlodipine 2.5 mg tablet 2.5 mg PO BID 02/19/25 02/19/25 History bupropion HCl 100 mg tablet,12 hr 100 mg PO BID 02/19/25 02/19/25 History sustained-release calcium 500 mg (as 2 tab PO DAILY 02/19/25 02/19/25 History carbonate)-vitamin D3 5 mcg (200 unit) tablet (Calcium 500 + D) cetirizine 10 mg tablet 10 mg PO DAILY 02/19/25 02/19/25 History dextroamphetamine sulfate 15 mg 15 mg PO BID 02/19/25 02/19/25 History capsule,extended release eszopiclone 1 mg tablet 1 mg PO BEDTIME 02/19/25 02/19/25 History fluticasone propionate 50 1 spray intranasal DAILY 02/19/25 02/19/25 History mcg/actuation nasal spray,suspension levothyroxine 50 mcg tablet 50 mcg PO DAILY 02/19/25 02/19/25 History lithium carbonate 600 mg capsule 600 mg PO BEDTIME 02/19/25 02/19/25 History polyethylene glycol 3350 17 gram 17 g PO DAILY PRN Constipation 02/19/25 02/19/25 History oral powder packet sennosides 8.6 mg tablet (senna) 8.6 mg PO BEDTIME PRN Constipation 02/19/25 02/19/25 History Allergies Allergies Allergy/AdvReac Type Severity Reaction Status Date / Time lamotrigine Allergy Rash Verified 02/19/25 14:55 Mental Status Exam Mental Status Exam Narrative: well dressed and kempt. no PMA/PMR. cooperative. speech decr amount, rapid, soft, incr latency. thoughts linear and logical. affect constricted, normo- intense, non-labile. mood pretty good. denies SI/SIBI/HI/AVH. Assessment & Plan Assessment & Plan (1) Hypothyroidism: Status: Acute Code(s): E03.9 - Hypothyroidism, unspecified (2) Major depressive disorder with current active episode: Status: Acute Qualifiers: Major depression recurrence: unspecified whether recurrent Major depression episode severity: unspecified Qualified Code(s): F32.9 - Major depressive disorder, single episode, unspecified Code(s): F32.9 - Major depressive disorder, single episode, unspecified (3) HTN (hypertension): Status: Acute Code(s): I10 - Essential (primary) hypertension (4) Sleep apnea: Status: Acute Code(s): G47.30 - Sleep apnea, unspecified Plan continue home meds. [facility] . EKG, hospitalist consult for ECT risk stratification. ECT sunday. Patient educated on: ECT Reason for continued inpatient stay Substantial Risk for: harm to self Statement Statement: I have reviewed the history and physical and performed a pertinent examination on my patient. No changes have occurred unless specified. If the History and Physical was not performed prior to admission, the Hospitalist's service will be consulted for completing the admission physical. Time Spent With Patient Time: Total time managing care of this patient today __55__ minutes.
--- NOTE | 2025-02-20 11:15 | P.CONHOSP_ITS ---
History of Present Illness Data of Consult Service Date: 02/20/25 Primary Care Provider: Melisa Mcdonald NP HPI Reason for consult: ECT clearance 69-year-old female with a past medical history of osteopenia, vitamin-D deficiency, hypertension, sleep apnea, basal cell carcinoma, hypothyroidism, history of Macario Floyd syndrome, hyperlipidemia, stress incontinence, chronic back pain, generalized anxiety disorder major depressive disorder was transferred here from the [place] for psychiatric care after suicide attempt with carbon monoxide poisoning. A carboxyhemoglobin level was 1.4 %. She continues to deny any chest pain, palpitations, nausea vomiting or visual changes. She is admitted to inpatient psychiatry for treatment. An EKG with normal sinus rhythm, QTC 421, no ischemic changes, done today. On exam she is alert and cooperative. Reports a history of ECT treatments 5 years ago. Denies any side effects or complications from previous ECT treatments. No prior recorded medical history of stroke, CAD, intracranial lesions, seizures or TBI. No known history of bleeding disorders, pulmonary issues or problems with anesthesia. 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 Review of Systems 2 Review of Systems: Denies any shortness of breath, chest pain, dizziness, lightheadedness, abdominal pain or discomfort, nausea vomiting or diarrhea PMFSH Social History Household Members: Significant Other and Children Housing: House Do you presently have visiting nurse or other home services: No Patient Tobacco Use Status: Never used Tobacco e-Cigarette/Vaping Use: Never Used Currently Displaying Signs/Symptoms of Drug Intoxication Withdrawal: No Have you been hit, kicked, punched, or otherwise hurt by someone within the past year? If so, by whom?: No Do you feel safe in your current relationship?: No Is there a partner from a previous relationship who is making you feel unsafe now?: No Are you made to feel afraid or neglected: No Advance Directives: No Advance Directives Information Provided: Yes Do you have thoughts of harming others: None Do you have a plan to hurt others: No Plan Recently lost weight without trying: No Eating poorly because of decreased appetite: No Nutrition Risks: No Nutritional Risk Patient : No : No Poor oral hygiene: No service: Yes Sexual orientation: Lesbian/Jones/Homosexual Meds Allergies Allergy/AdvReac Type Severity Reaction Status Date / Time lamotrigine Allergy Rash Verified 02/19/25 14:55 Active Medications: Current Medications Acetaminophen (Acetaminophen 325 Mg Tablet) 650 mg PO Q6H PRN PRN Reason: Headache/Pain, Scale 1-10 Al Hydroxide/Mg Hydroxide (Magnesium Hydrox/Alum Hydrox 30 Ml Oral.Susp) 30 ml PO Q6H PRN PRN Reason: Heartburn/Nausea Alprazolam (Alprazolam 0.25 Mg Tablet) 0.25 mg PO DAILY PRN PRN Reason: Anxiety Amlodipine Besylate (Amlodipine Besylate 2.5 Mg Tablet) 2.5 mg PO DAILY [facility]; Protocol Last Admin: 02/20/25 08:42 Dose: 2.5 mg Bupropion HCl (Bupropion Hcl 100 Mg Tablet) 100 mg PO BID [facility] Last Admin: 02/20/25 08:42 Dose: 100 mg Calcium Carbonate/Cholecalciferol (Calcium + Vitamin D 250 Mg Tablet) 1,000 mg PO DAILY [facility] Last Admin: 02/20/25 08:43 Dose: 1,000 mg Dextroamphetamine Sulfate (Dextroamphetamine Sulfate 5 Mg Tablet) 15 mg PO BID [facility] Last Admin: 02/20/25 08:42 Dose: 15 mg Fluticasone Propionate (Fluticasone Propionate Nasal 16 Gm [place]) 1 spray NOSTRIL-B DAILY [facility] Last Admin: 02/20/25 08:43 Dose: 1 spray Hydroxyzine HCl (Hydroxyzine Hcl 25 Mg Tablet) 25 mg PO Q6H PRN PRN Reason: mild anxiety Last Admin: 02/19/25 23:05 Dose: 25 mg Levothyroxine Sodium (Levothyroxine Sodium 50 Mcg Tablet) 50 mcg PO DAILY@0600 [facility] Last Admin: 02/20/25 06:50 Dose: 50 mcg [place] Carbonate ([place] Carbonate 300 Mg Capsule) 600 mg PO BEDTIME [facility] Last Admin: 02/19/25 23:05 Dose: 600 mg Loratadine (Loratadine 10 Mg Tablet) 10 mg PO DAILY [facility] Last Admin: 02/20/25 08:43 Dose: 10 mg Magnesium Hydroxide (Milk Of Magnesia 30 Ml Oral.Susp) 30 ml PO DAILY PRN PRN Reason: Constipation Last Admin: 02/20/25 09:00 Dose: 30 ml Nicotine (Nicotine 21 Mg Patch.Td24) 21 mg TRANSDERMA DAILY [facility] Last Admin: 02/20/25 08:46 Dose: Not Given Nicotine Polacrilex (Nicotine Polacrilex 2 Mg Gum) 4 mg BUCCAL Q2H PRN PRN Reason: Nicotine Cravings Polyethylene Glycol (Polyethylene Glycol 3350 17 Gm Powd.Pack) 17 gm PO DAILY PRN PRN Reason: Constipation Senna (Sennosides 8.6 Mg Tablet) 8.6 mg PO BEDTIME PRN PRN Reason: Constipation Trazodone HCl (Trazodone Hcl 50 Mg Tablet) 50 mg PO BEDTIME MRX1 PRN PRN Reason: Insomnia Last Admin: 02/20/25 02:25 Dose: 50 mg Home Medications ?Medication ?Instructions ?Recorded ?Confirmed ?Last Taken ?Type acetaminophen 650 mg tablet 650 mg PO Q6H PRN Pain (Scale 02/19/25 02/19/25 Unknown History Score 1-3) alprazolam 0.25 mg tablet 0.25 mg PO DAILY PRN Anxiety 02/19/25 02/19/25 Unknown History amlodipine 2.5 mg tablet 2.5 mg PO BID 02/19/25 02/19/25 02/19/25 History bupropion HCl 100 mg tablet,12 hr 100 mg PO BID 02/19/25 02/19/25 02/19/25 History sustained-release calcium 500 mg (as 2 tab PO DAILY 02/19/25 02/19/25 02/19/25 History carbonate)-vitamin D3 5 mcg (200 unit) tablet (Calcium 500 + D) cetirizine 10 mg tablet 10 mg PO DAILY 02/19/25 02/19/25 02/19/25 History dextroamphetamine sulfate 15 mg 15 mg PO BID 02/19/25 02/19/25 02/19/25 History capsule,extended release eszopiclone 1 mg tablet 1 mg PO BEDTIME 02/19/25 02/19/25 Unknown History fluticasone propionate 50 1 spray intranasal DAILY 02/19/25 02/19/25 Unknown History mcg/actuation nasal spray,suspension levothyroxine 50 mcg tablet 50 mcg PO DAILY 02/19/25 02/19/25 02/19/25 History lithium carbonate 600 mg capsule 600 mg PO BEDTIME 02/19/25 02/19/25 Unknown History polyethylene glycol 3350 17 gram 17 g PO DAILY PRN Constipation 02/19/25 02/19/25 Unknown History oral powder packet sennosides 8.6 mg tablet (senna) 8.6 mg PO BEDTIME PRN Constipation 02/19/25 02/19/25 Unknown History Physical Exam 2 Vital Signs and Narrative: Vital Signs: Last Vital Signs Temp 98.4 F 02/20/25 07:36 Pulse 55 02/20/25 07:36 Resp 16 02/20/25 07:36 BP 125/60 02/20/25 08:42 Pulse Ox 97 02/20/25 07:36 O2 Del Method Room Air 02/20/25 07:36 BMI result Body Mass Index 26.6 Alert and oriented X3, able to give good history. Calm and cooperative, reading a book. Neuro: CN II-X11 intact, no deficits, visual acuity intact EYES: PERRLA, EOM intact ENT: hearing intact Cardiac: S1 S2 RRR, no edema in Lower ext Pulmonary: lungs clear to auscultation, No increased WOB. Abdominal: BS active in all 4 quadrants, NT, ND MSK: Strength 5/5 upper and lower extremities : Deferred Extremities: no edema in lower extremities Psych: mood stable, judgement and insight good Skin: Warm and dry, Intact Results Labs 02/20/25 08:09 Labs: Laboratory Results - last 24 hr 02/20/25 08:09 Anion Gap 9 L Estim Creat Clear Calc 67.9 Estimated GFR > 60 Random Glucose 86 Estimat Average Glucose 103 Hemoglobin A1c % 5.2 Calcium 9.6 Total Bilirubin 0.3 AST 22 ALT 23 Alkaline Phosphatase 64 Total Protein 6.0 L Albumin 3.7 Triglycerides 161 H Cholesterol 247 H LDL Cholesterol, Calc 157 H HDL Cholesterol 58 Assessment and Plan (1) Major depressive disorder with current active episode: Qualifiers: Major depression recurrence: unspecified whether recurrent Major depression episode severity: unspecified Qualified Code(s): F32.9 - Major depressive disorder, single episode, unspecified Status: Acute Plan Patient is a healthy 69-year-old female here for treatment of major depressive disorder and generalized anxiety disorder. This is a medical consult for ECT risk stratification. ECT risk stratification Patient without previous problems with anesthesia, has previously undergone ECT about 5 years ago. Denies any issues. RCRI 0 points, no further cardiac workup or treatment indicated at this time. Patient denies any past problems with anesthesia. EKG showing QTc 421, no evidence of ischemic changes Based on stated PMH, HPI, and physical exam, there are no There are no obvious contraindications to the planned procedure. Thank you for allowing me to participate in the care of this patient. Signing off at this time. Please reconsult of any acute complaints or issues arise
[2025-02-20] MEDS: Acetaminophen 325 MG TABLET 650 MG PO (15:23)
[2025-02-20 20:00] VITALS: BP 130/84; PULSE 67; RESP 16; TEMP 36.4; O2SAT 98
[2025-02-20] MEDS: Lithium Carbonate 300 MG CAPSULE 600 MG PO (20:33)
[2025-02-20] MEDS: Sennosides 8.6 MG TABLET 17.2 MG PO (20:53)
[2025-02-21] MEDS: Levothyroxine Sodium 50 MCG TABLET PO (06:39)
--- NOTE | 2025-02-21 07:22 | P.PNPSI_ITS ---
Subjective Subjective Date of Service: 02/21/25 Reason For Visit: to get ECT Interim History: Patient reports overall feeling depressed, but hopeful around ECT treatment on Sunday. Denies current SI. No psychosis. Feeling safe and well cared for. Uncertainty around controlled substance prescriptions/regimen. As per [facility] through [place] pharmacy: Eszopiclone 1 Mg Tablet, ativan 0.5mg bid January 2025 and prev xanax [facility] until December 2024. Pt is not on stimulant regimen and reports not having a history of ADD or ADHD and Agreeable to discontinuing order stimulant. Will order Ambien as Eszopiclone not available Medication Compliance: Yes Side effects from medications: No Attending Groups: Intermittent Review of Systems Acute medical concerns: No Review of Systems Review of Systems Unremarkable Mental Status Exam Mental Status Exam Narrative: well dressed and kempt. no PMA/PMR. cooperative. speech decr amount, rapid, soft, incr latency. thoughts linear and logical. affect constricted, normo- intense, non-labile. mood not bad. denies SI/SIBI/HI/AVH. Diagnostics Vital Signs (24Hr): Vital Signs - 24 hr 02/20/25 07:36 02/20/25 08:42 02/20/25 20:00 Temperature 98.4 F 97.6 F Pulse Rate 55 67 Respiratory Rate 16 16 Blood Pressure 125/60 125/60 130/84 Pulse Oximetry 97 98 Oxygen Delivery Method Room Air Room Air BMI result Body Mass Index 26.6 Labs 02/20/25 08:09 Labs: Laboratory Results - last 48 hr 02/20/25 08:09 Sodium 141 Potassium 4.5 Chloride 111 H Carbon Dioxide 26 Anion Gap 9 L BUN 11 Creatinine 0.79 Estim Creat Clear Calc 67.9 Estimated GFR > 60 Random Glucose 86 Estimat Average Glucose 103 Hemoglobin A1c % 5.2 Calcium 9.6 Total Bilirubin 0.3 AST 22 ALT 23 Alkaline Phosphatase 64 Total Protein 6.0 L Albumin 3.7 Triglycerides 161 H Cholesterol 247 H LDL Cholesterol, Calc 157 H HDL Cholesterol 58 Medications Medications Current Medications Acetaminophen (Acetaminophen 325 Mg Tablet) 650 mg PO Q6H PRN PRN Reason: Headache/Pain, Scale 1-10 Last Admin: 02/20/25 15:23 Dose: 650 mg Al Hydroxide/Mg Hydroxide (Magnesium Hydrox/Alum Hydrox 30 Ml Oral.Susp) 30 ml PO Q6H PRN PRN Reason: Heartburn/Nausea Alprazolam (Alprazolam 0.25 Mg Tablet) 0.25 mg PO DAILY PRN PRN Reason: Anxiety Amlodipine Besylate (Amlodipine Besylate 2.5 Mg Tablet) 2.5 mg PO DAILY [facility]; Protocol Last Admin: 02/20/25 08:42 Dose: 2.5 mg Bupropion HCl (Bupropion Hcl 100 Mg Tablet) 100 mg PO BID [facility] Last Admin: 02/20/25 21:47 Dose: Not Given Calcium Carbonate/Cholecalciferol (Calcium + Vitamin D 250 Mg Tablet) 1,000 mg PO DAILY [facility] Last Admin: 02/20/25 08:43 Dose: 1,000 mg Dextroamphetamine Sulfate (Dextroamphetamine Sulfate 5 Mg Tablet) 45 mg PO BID [facility] Last Admin: 02/20/25 22:05 Dose: Not Given Fluticasone Propionate (Fluticasone Propionate Nasal 16 Gm [place]) 1 spray NOSTRIL-B DAILY [facility] Last Admin: 02/20/25 08:43 Dose: 1 spray Hydroxyzine HCl (Hydroxyzine Hcl 25 Mg Tablet) 25 mg PO Q6H PRN PRN Reason: mild anxiety Last Admin: 02/19/25 23:05 Dose: 25 mg Levothyroxine Sodium (Levothyroxine Sodium 50 Mcg Tablet) 50 mcg PO DAILY@0600 [facility] Last Admin: 02/21/25 06:39 Dose: 50 mcg [place] Carbonate ([place] Carbonate 300 Mg Capsule) 600 mg PO BEDTIME [facility] Last Admin: 02/20/25 20:33 Dose: 600 mg Loratadine (Loratadine 10 Mg Tablet) 10 mg PO DAILY [facility] Last Admin: 02/20/25 08:43 Dose: 10 mg Magnesium Hydroxide (Milk Of Magnesia 30 Ml Oral.Susp) 30 ml PO DAILY PRN PRN Reason: Constipation Last Admin: 02/20/25 09:00 Dose: 30 ml Nicotine (Nicotine 21 Mg Patch.Td24) 21 mg TRANSDERMA DAILY [facility] Last Admin: 02/20/25 08:46 Dose: Not Given Nicotine Polacrilex (Nicotine Polacrilex 2 Mg Gum) 4 mg BUCCAL Q2H PRN PRN Reason: Nicotine Cravings Polyethylene Glycol (Polyethylene Glycol 3350 17 Gm Powd.Pack) 17 gm PO DAILY PRN PRN Reason: Constipation Senna (Sennosides 8.6 Mg Tablet) 17.2 mg PO BEDTIME PRN PRN Reason: Constipation Last Admin: 02/20/25 20:53 Dose: 17.2 mg Trazodone HCl (Trazodone Hcl 50 Mg Tablet) 50 mg PO BEDTIME MRX1 PRN PRN Reason: Insomnia Last Admin: 02/20/25 20:53 Dose: 50 mg Allergies Allergies Allergy/AdvReac Type Severity Reaction Status Date / Time lamotrigine Allergy Rash Verified 02/19/25 14:55 Assessment & Plan Assessment & Plan (1) Hypothyroidism: Status: Acute Code(s): E03.9 - Hypothyroidism, unspecified (2) Major depressive disorder with current active episode: Qualifiers: Major depression episode severity: unspecified Major depression recurrence: unspecified whether recurrent Qualified Code(s): F32.9 - Major depressive disorder, single episode, unspecified Status: Acute Code(s): F32.9 - Major depressive disorder, single episode, unspecified (3) HTN (hypertension): Status: Acute Code(s): I10 - Essential (primary) hypertension (4) Sleep apnea: Status: Acute Code(s): G47.30 - Sleep apnea, unspecified Plan continue home meds. hold new xanax from [place] inpatient as well as home [facility]. EKG, hospitalist consult for ECT risk stratification. ECT sunday. 02/21: uncertainty around controlled substance prescriptions/regimen. As per [facility] through [place] pharmacy: Eszopiclone 1 Mg Tablet, ativan 0.5mg bid January 2025 and prev xanax [facility] until December 2024. Pt is not on stimulant regimen and reports not having a history of ADD or ADHD and Agreeable to discontinuing order stimulant. Will order Ambien as Eszopiclone not available Reason for continued inpatient stay Substantial Risk for: inability to function Time Spent With Patient Time: Total time managing care of this patient today ____ minutes.
[2025-02-21 08:33] VITALS: BP 96/51; PULSE 60; RESP 16; TEMP 36.6; O2SAT 96
[2025-02-21] MEDS: Calcium + Vitamin D 250 MG TABLET 1000 MG PO (09:09)
[2025-02-21] MEDS: Fluticasone Propionate Nasal 16 GM SPRAY 1 SPRAY NOSTRIL-B (09:09)
[2025-02-21] MEDS: amLODIPine Besylate 2.5 MG TABLET PO (09:09)
[2025-02-21] MEDS: Loratadine 10 MG TABLET PO (09:09)
[2025-02-21] MEDS: buPROPion HCL 100 MG TABLET PO (09:09)
[2025-02-21 09:28] VITALS: BP 124/72; PULSE 67
[2025-02-21 13:29] VITALS: BP 138/67; PULSE 68
[2025-02-21 20:00] VITALS: BP 118/58; PULSE 62; RESP 14; TEMP 36.4; O2SAT 97
[2025-02-21] MEDS: LORazepam 0.5 MG TABLET PO (20:35)
[2025-02-21] MEDS: Zolpidem Tartrate 5 MG TABLET PO (20:35)
[2025-02-21] MEDS: Lithium Carbonate 300 MG CAPSULE 600 MG PO (20:36)
[2025-02-21] MEDS: Sennosides 8.6 MG TABLET 17.2 MG PO (20:56)
[2025-02-22] MEDS: Levothyroxine Sodium 50 MCG TABLET PO (06:32)
--- NOTE | 2025-02-22 06:52 | PC.NURSE ---
wellbutrin at [facility]-Dr. Renee requests to have provider evaluate time of 2nd dose
[2025-02-22] MEDS: Fluticasone Propionate Nasal 16 GM SPRAY 1 SPRAY NOSTRIL-B (08:53)
[2025-02-22] MEDS: Calcium + Vitamin D 250 MG TABLET 1000 MG PO (08:53)
[2025-02-22 08:54] VITALS: BP 100/62
[2025-02-22] MEDS: amLODIPine Besylate 2.5 MG TABLET PO (08:54)
[2025-02-22] MEDS: Loratadine 10 MG TABLET PO (08:54)
[2025-02-22] MEDS: LORazepam 0.5 MG TABLET PO (08:54)
[2025-02-22] MEDS: buPROPion HCL 100 MG TABLET PO ×2 (08:54→14:42)
[2025-02-22 09:00] VITALS: BP 100/58; PULSE 60; RESP 18; TEMP 36.6; O2SAT 98
--- NOTE | 2025-02-22 10:00 | HO.PSYCHPN ---
Subjective Subjective Date of Service: 02/22/25 Reason For Visit: MDD Subjective Notes: Conditional Voluntary Medical Problems Affecting Mental Status: No Medication Compliance: Yes Side effects from medications: No Attending Groups: Intermittent Review of Systems Acute medical concerns: No Medical Review of Systems: unchanged Mental Status Exam Mental Status Exam Patient Appearance: Well Grooomed Patient Orientation: Place, Time and Situation Level of Consciousness: Alert Patient Behavior: Appropriate Mood Description: Depressed Affect Description: Depressed and Anxious Ability to Follow Directions: Excellent Speech Pattern: Clear and Soft-Spoken Memory Description: Intact Hallucinations: None Delusions: Paranoid Ideation Thought Process: Linear Thought Content: positive for Intact and positive for Suicidal Ideation Depressive Symptoms: Increased Anxiety, Loss of Int. in Activity, Isolating-Friends/Family, Thoughts of /Suicide and Loss of Energy Judgement: Fair Diagnostics Vital Signs (24Hr): Vital Signs - 24 hr 02/21/25 13:29 02/21/25 20:00 02/22/25 08:54 Temperature 97.6 F Pulse Rate 68 62 Respiratory Rate 14 Blood Pressure 138/67 118/58 L 100/62 Pulse Oximetry 97 Oxygen Delivery Method Room Air 02/22/25 09:00 Temperature 97.8 F Pulse Rate 60 Respiratory Rate 18 Blood Pressure 100/58 L Pulse Oximetry 98 Oxygen Delivery Method Room Air BMI result Body Mass Index 26.6 Labs 02/20/25 08:09 Medications Medications Current Medications Acetaminophen (Acetaminophen 325 Mg Tablet) 650 mg PO Q6H PRN PRN Reason: Headache/Pain, Scale 1-10 Last Admin: 02/20/25 15:23 Dose: 650 mg Al Hydroxide/Mg Hydroxide (Magnesium Hydrox/Alum Hydrox 30 Ml Oral.Susp) 30 ml PO Q6H PRN PRN Reason: Heartburn/Nausea Amlodipine Besylate (Amlodipine Besylate 2.5 Mg Tablet) 2.5 mg PO DAILY [facility]; Protocol Last Admin: 02/22/25 08:54 Dose: 2.5 mg Bupropion HCl (Bupropion Hcl 100 Mg Tablet) 100 mg PO BID [facility] Last Admin: 02/22/25 08:54 Dose: 100 mg Calcium Carbonate/Cholecalciferol (Calcium + Vitamin D 250 Mg Tablet) 1,000 mg PO DAILY [facility] Last Admin: 02/22/25 08:53 Dose: 1,000 mg Fluticasone Propionate (Fluticasone Propionate Nasal 16 Gm [place]) 1 spray NOSTRIL-B DAILY [facility] Last Admin: 02/22/25 08:53 Dose: 1 spray Hydroxyzine HCl (Hydroxyzine Hcl 25 Mg Tablet) 25 mg PO Q6H PRN PRN Reason: mild anxiety Last Admin: 02/19/25 23:05 Dose: 25 mg Levothyroxine Sodium (Levothyroxine Sodium 50 Mcg Tablet) 50 mcg PO DAILY@0600 [facility] Last Admin: 02/22/25 06:32 Dose: 50 mcg [place] Carbonate ([place] Carbonate 300 Mg Capsule) 600 mg PO BEDTIME [facility] Last Admin: 02/21/25 20:36 Dose: 600 mg Loratadine (Loratadine 10 Mg Tablet) 10 mg PO DAILY [facility] Last Admin: 02/22/25 08:54 Dose: 10 mg Lorazepam (Lorazepam 0.5 Mg Tablet) 0.5 mg PO BID [facility] Last Admin: 02/22/25 08:54 Dose: 0.5 mg Magnesium Hydroxide (Milk Of Magnesia 30 Ml Oral.Susp) 30 ml PO DAILY PRN PRN Reason: Constipation Last Admin: 02/20/25 09:00 Dose: 30 ml Nicotine (Nicotine 21 Mg Patch.Td24) 21 mg TRANSDERMA DAILY [facility] Last Admin: 02/22/25 08:56 Dose: Not Given Nicotine Polacrilex (Nicotine Polacrilex 2 Mg Gum) 4 mg BUCCAL Q2H PRN PRN Reason: Nicotine Cravings Polyethylene Glycol (Polyethylene Glycol 3350 17 Gm Powd.Pack) 17 gm PO DAILY PRN PRN Reason: Constipation Senna (Sennosides 8.6 Mg Tablet) 17.2 mg PO BEDTIME PRN PRN Reason: Constipation Last Admin: 02/21/25 20:56 Dose: 17.2 mg Zolpidem Tartrate (Zolpidem Tartrate 5 Mg Tablet) 5 mg PO BEDTIME PRN PRN Reason: Insomnia Last Admin: 02/21/25 20:35 Dose: 5 mg Allergies Allergies Allergy/AdvReac Type Severity Reaction Status Date / Time lamotrigine Allergy Rash Verified 02/19/25 14:55 Assessment & Plan Assessment & Plan (1) Hypothyroidism: Status: Acute Code(s): E03.9 - Hypothyroidism, unspecified (2) Major depressive disorder with current active episode: Qualifiers: Major depression episode severity: unspecified Major depression recurrence: unspecified whether recurrent Qualified Code(s): F32.9 - Major depressive disorder, single episode, unspecified Status: Acute Code(s): F32.9 - Major depressive disorder, single episode, unspecified (3) HTN (hypertension): Status: Acute Code(s): I10 - Essential (primary) hypertension (4) Sleep apnea: Status: Acute Code(s): G47.30 - Sleep apnea, unspecified Plan continue home meds. hold new xanax from [place] inpatient as well as home [facility]. EKG, hospitalist consult for ECT risk stratification. ECT sunday. 02/21: uncertainty around controlled substance prescriptions/regimen. 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 Pt is not on stimulant regimen and reports not having a history of ADD or ADHD and Agreeable to discontinuing order stimulant. Will order Ambien as Eszopiclone not available 02/22: Unclear if ECT is scheduled for Sunday. No pre-ECT orders written. Will hold ambien and ativan for now and keep NPO in the morning in case she is scheduled. Reason for continued inpatient stay Substantial Risk for: harm to self and med/psych decompensation Time Spent With Patient Time: Total time managing care of this patient today ____ minutes.
[2025-02-22 20:05] VITALS: BP 106/55; PULSE 62; RESP 16; TEMP 36.8; O2SAT 98
[2025-02-23 07:20] VITALS: BP 122/61; PULSE 62; RESP 16; TEMP 36.5; O2SAT 98
[2025-02-23 15:54] VITALS: BP 141/70; PULSE 65; RESP 12; TEMP 36.4; O2SAT 97
--- NOTE | 2025-02-23 17:02 | P.PNPSI_ITS ---
Subjective Subjective Date of Service: 02/23/25 Reason For Visit: MDD Interim History: patient scheduled for afternoon ECT. bumped to later in the day, then canceled. rescheduled for tomorrow. case D/W pt's outpt MD at the [facility], Elza De La Torre MD. dandre was considering augmentation with brexulti, caplyta, or pramipexole. reported akathisia with abilify at high dose, but it was effective until then. 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 will fax meds Hx. per staff, depressed. wants ECT. slept well. Diagnostics Vital Signs (24Hr): Vital Signs - 24 hr 02/22/25 20:05 02/23/25 07:20 02/23/25 15:54 Temperature 98.2 F 97.7 F 97.5 F Pulse Rate 62 62 65 Respiratory Rate 16 16 12 Blood Pressure 106/55 L 122/61 141/70 H Pulse Oximetry 98 98 97 Oxygen Delivery Method Room Air Room Air Room Air BMI result Body Mass Index 26.6 Labs 02/20/25 08:09 Medications Medications Current Medications Acetaminophen (Acetaminophen 325 Mg Tablet) 650 mg PO Q6H PRN PRN Reason: Headache/Pain, Scale 1-10 Last Admin: 02/20/25 15:23 Dose: 650 mg Al Hydroxide/Mg Hydroxide (Magnesium Hydrox/Alum Hydrox 30 Ml Oral.Susp) 30 ml PO Q6H PRN PRN Reason: Heartburn/Nausea Amlodipine Besylate (Amlodipine Besylate 2.5 Mg Tablet) 2.5 mg PO DAILY [facility]; Protocol Last Admin: 02/23/25 14:56 Dose: Not Given Bupropion HCl (Bupropion Hcl 100 Mg Tablet) 100 mg PO BID@0900,1500 [facility] Last Admin: 02/23/25 16:08 Dose: Not Given Calcium Carbonate/Cholecalciferol (Calcium + Vitamin D 250 Mg Tablet) 1,000 mg PO DAILY [facility] Last Admin: 02/22/25 08:53 Dose: 1,000 mg Fluticasone Propionate (Fluticasone Propionate Nasal 16 Gm [place]) 1 spray NOSTRIL-B DAILY [facility] Last Admin: 02/23/25 14:57 Dose: Not Given Hydroxyzine HCl (Hydroxyzine Hcl 25 Mg Tablet) 25 mg PO Q6H PRN PRN Reason: mild anxiety Last Admin: 02/19/25 23:05 Dose: 25 mg Levothyroxine Sodium (Levothyroxine Sodium 50 Mcg Tablet) 50 mcg PO DAILY@0600 [facility] Last Admin: 02/22/25 06:32 Dose: 50 mcg [place] Carbonate ([place] Carbonate 300 Mg Capsule) 600 mg PO BEDTIME [facility] Last Admin: 02/22/25 21:16 Dose: Not Given Magnesium Hydroxide (Milk Of Magnesia 30 Ml Oral.Susp) 30 ml PO DAILY PRN PRN Reason: Constipation Last Admin: 02/20/25 09:00 Dose: 30 ml Nicotine (Nicotine 21 Mg Patch.Td24) 21 mg TRANSDERMA DAILY [facility] Last Admin: 02/23/25 14:58 Dose: Not Given Nicotine Polacrilex (Nicotine Polacrilex 2 Mg Gum) 4 mg BUCCAL Q2H PRN PRN Reason: Nicotine Cravings Polyethylene Glycol (Polyethylene Glycol 3350 17 Gm Powd.Pack) 17 gm PO DAILY PRN PRN Reason: Constipation Senna (Sennosides 8.6 Mg Tablet) 17.2 mg PO BEDTIME PRN PRN Reason: Constipation Last Admin: 02/21/25 20:56 Dose: 17.2 mg Allergies Allergies Allergy/AdvReac Type Severity Reaction Status Date / Time lamotrigine Allergy Rash Verified 02/19/25 14:55 Assessment & Plan Assessment & Plan (1) Hypothyroidism: Status: Acute Code(s): E03.9 - Hypothyroidism, unspecified (2) Major depressive disorder with current active episode: Qualifiers: Major depression recurrence: unspecified whether recurrent Major depression episode severity: unspecified Qualified Code(s): F32.9 - Major depressive disorder, single episode, unspecified Status: Acute Code(s): F32.9 - Major depressive disorder, single episode, unspecified (3) HTN (hypertension): Status: Acute Code(s): I10 - Essential (primary) hypertension (4) Sleep apnea: Status: Acute Code(s): G47.30 - Sleep apnea, unspecified Plan continue home meds. hold new xanax from [place] inpatient as well as home [facility]. EKG, hospitalist consult for ECT risk stratification. ECT sunday. 02/21: uncertainty around controlled substance prescriptions/regimen. As per [facility] through [place] pharmacy: Eszopiclone 1 Mg Tablet, ativan 0.5mg bid January 2025 and prev xanax [facility] until December 2024. Pt is not on stimulant regimen and reports not having a history of ADD or ADHD and Agreeable to discontinuing order stimulant. Will order Ambien as Eszopiclone not available 02/22: Unclear if ECT is scheduled for Sunday. No pre-ECT orders written. Will hold ambien and ativan for now and keep NPO in the morning in case she is scheduled. 02/23: no anesthesiologists available for ECT. case D/W pt's outpt MD at the [facility], Elza De La Torre MD. dandre was considering augmentation with brexulti, caplyta, or pramipexole. reported akathisia with abilify at high dose, but it was effective until then. 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 ECT scheduled for tomorrow afternoon at 1300. Reason for continued inpatient stay Substantial Risk for: harm to self and inability to function Time Spent With Patient Time: Total time managing care of this patient today __35__ minutes.
[2025-02-23 19:14] VITALS: BP 131/67; PULSE 64; RESP 16; TEMP 36.4; O2SAT 100
[2025-02-24] VITALS (10 sets, daily range): BP systolic 111–162; BP diastolic 66–83; PULSE 55–86; RESP 16–20; TEMP 36.1–36.7; O2SAT 95–99
--- NOTE | 2025-02-24 12:52 | P.CONAN_ITS ---
[facility] Active Problems Active Problems: All Active Problems Generalized anxiety disorder (Acute) Seasonal allergies (Acute) Sleep apnea (Acute) Hypothyroidism (Acute) HTN (hypertension) (Acute) Osteopenia (Acute) Major depressive disorder with current active episode (Acute) Social History Social History Household Members: Significant Other and Children Housing: House Do you presently have visiting nurse or other home services: No Patient Tobacco Use Status: Never used Tobacco e-Cigarette/Vaping Use: Never Used Currently Displaying Signs/Symptoms of Drug Intoxication Withdrawal: No Have you been hit, kicked, punched, or otherwise hurt by someone within the past year? If so, by whom?: No Do you feel safe in your current relationship?: No Is there a partner from a previous relationship who is making you feel unsafe now?: No Are you made to feel afraid or neglected: No Advance Directives: No Advance Directives Information Provided: Yes Do you have thoughts of harming others: None Do you have a plan to hurt others: No Plan Recently lost weight without trying: No Eating poorly because of decreased appetite: No Nutrition Risks: No Nutritional Risk Patient : No : No Poor oral hygiene: No service: Yes Sexual orientation: Lesbian/Jones/Homosexual Meds Allergies Allergy/AdvReac Type Severity Reaction Status Date / Time lamotrigine Allergy Rash Verified 02/19/25 14:55 Active Medications: Current Medications Acetaminophen (Acetaminophen 325 Mg Tablet) 650 mg PO Q6H PRN PRN Reason: Headache/Pain, Scale 1-10 Last Admin: 02/20/25 15:23 Dose: 650 mg Al Hydroxide/Mg Hydroxide (Magnesium Hydrox/Alum Hydrox 30 Ml Oral.Susp) 30 ml PO Q6H PRN PRN Reason: Heartburn/Nausea Amlodipine Besylate (Amlodipine Besylate 2.5 Mg Tablet) 2.5 mg PO DAILY [facility]; Protocol Last Admin: 02/24/25 11:05 Dose: Not Given Bupropion HCl (Bupropion Hcl 100 Mg Tablet) 100 mg PO BID@0900,1500 [facility] Last Admin: 02/24/25 11:05 Dose: Not Given Calcium Carbonate/Cholecalciferol (Calcium + Vitamin D 250 Mg Tablet) 1,000 mg PO DAILY [facility] Last Admin: 02/24/25 11:06 Dose: Not Given Fluticasone Propionate (Fluticasone Propionate Nasal 16 Gm [place]) 1 spray NOSTRIL-B DAILY [facility] Last Admin: 02/24/25 11:06 Dose: Not Given Hydroxyzine HCl (Hydroxyzine Hcl 25 Mg Tablet) 25 mg PO Q6H PRN PRN Reason: mild anxiety Last Admin: 02/19/25 23:05 Dose: 25 mg Levothyroxine Sodium (Levothyroxine Sodium 50 Mcg Tablet) 50 mcg PO DAILY@0600 [facility] Last Admin: 02/24/25 11:05 Dose: Not Given [place] Carbonate ([place] Carbonate 300 Mg Capsule) 600 mg PO BEDTIME [facility] Last Admin: 02/22/25 21:16 Dose: Not Given Magnesium Hydroxide (Milk Of Magnesia 30 Ml Oral.Susp) 30 ml PO DAILY PRN PRN Reason: Constipation Last Admin: 02/20/25 09:00 Dose: 30 ml Nicotine (Nicotine 21 Mg Patch.Td24) 21 mg TRANSDERMA DAILY [facility] Last Admin: 02/24/25 11:06 Dose: Not Given Nicotine Polacrilex (Nicotine Polacrilex 2 Mg Gum) 4 mg BUCCAL Q2H PRN PRN Reason: Nicotine Cravings Polyethylene Glycol (Polyethylene Glycol 3350 17 Gm Powd.Pack) 17 gm PO DAILY PRN PRN Reason: Constipation Senna (Sennosides 8.6 Mg Tablet) 17.2 mg PO BEDTIME PRN PRN Reason: Constipation Last Admin: 02/21/25 20:56 Dose: 17.2 mg Home Medications ?Medication ?Instructions ?Recorded ?Confirmed ?Last Taken ?Type acetaminophen 650 mg tablet 650 mg PO Q6H PRN Pain (Scale 02/19/25 02/19/25 Unknown History Score 1-3) alprazolam 0.25 mg tablet 0.25 mg PO DAILY PRN Anxiety 02/19/25 02/19/25 Unknown History amlodipine 2.5 mg tablet 2.5 mg PO BID 02/19/25 02/19/25 02/19/25 History bupropion HCl 100 mg tablet,12 hr 100 mg PO BID 02/19/25 02/19/25 02/19/25 Hist ory sustained-release calcium 500 mg (as 2 tab PO DAILY 02/19/25 02/19/25 02/19/25 History carbonate)-vitamin D3 5 mcg (200 unit) tablet (Calcium 500 + D) cetirizine 10 mg tablet 10 mg PO DAILY 02/19/25 02/19/25 02/19/25 History dextroamphetamine sulfate 15 mg 15 mg PO BID 02/19/25 02/19/25 02/19/25 History capsule,extended release eszopiclone 1 mg tablet 1 mg PO BEDTIME 02/19/25 02/19/25 Unknown History fluticasone propionate 50 1 spray intranasal DAILY 02/19/25 02/19/25 Unknown History mcg/actuation nasal spray,suspension levothyroxine 50 mcg tablet 50 mcg PO DAILY 02/19/25 02/19/25 02/19/25 History lithium carbonate 600 mg capsule 600 mg PO BEDTIME 02/19/25 02/19/25 Unknown History polyethylene glycol 3350 17 gram 17 g PO DAILY PRN Constipation 02/19/25 02/19/25 Unknown History oral powder packet sennosides 8.6 mg tablet (senna) 8.6 mg PO BEDTIME PRN Constipation 02/19/25 02/19/25 Unknown History Exam Height,Weight and Vital Signs: Height 5 ft 5 in Weight 72.484 kg Last Vital Signs Temp 97.0 F 02/24/25 12:36 Pulse 59 02/24/25 12:36 Resp 16 02/24/25 12:36 BP 133/70 02/24/25 12:36 Pulse Ox 98 02/24/25 12:36 O2 Del Method Room Air 02/24/25 12:36 Pertinent Lab Results Pertinent Lab Results: Laboratory Tests 02/20/25 08:09 Sodium 141 Potassium 4.5 Chloride 111 H Carbon Dioxide 26 Anion Gap 9 L BUN 11 Creatinine 0.79 Estim Creat Clear Calc 67.9 Estimated GFR > 60 Random Glucose 86 Estimat Average Glucose 103 Hemoglobin A1c % 5.2 Calcium 9.6 Total Bilirubin 0.3 AST 22 ALT 23 Alkaline Phosphatase 64 Total Protein 6.0 L Albumin 3.7 Triglycerides 161 H Cholesterol 247 H LDL Cholesterol, Calc 157 H HDL Cholesterol 58 Airway Mallampati Class: III TM Dist: >3cm Neck ROM: Full Loose/Missing/Broken Teeth: No Heart: RRR Lungs: CTA Assessment and Plan Assessment Anesthesia Assessment: Anesthesia Plan Discussed and Chart Reviewed Final Anesthetic Review NPO: Yes ASA Class: III Final Preanesthetic Review: Meds/Allgs Chart Reviewed, Consent Obtained/Reviewed and Anes Risks/Benef Reviewed Patient Risk: Intermediate Procedure Risk: Intermediate Anesthetic Plan Anesthetic Plan: GA Disposition: Standard PACU
--- NOTE | 2025-02-24 13:10 | MHC.SHP ---
Pre-Procedural Eval Section A - 24 Hr Update-Section A only Date of Service: 02/24/25 The patient is an INPATIENT: Yes Changes since office visit: Yes Patient answered all questions; No Cold of Flu in the past 2 weeks, No New Medical Problems and No Changes in Medication The patient has been examined within 24 hours of the surgical procedure. The History & Physical has been completed within 30 days and I have reviewed it.: Yes Section B - Complete if H&P > 30 days Chief Complaint: MDD Allergies: Allergies Allergy/AdvReac Type Severity Reaction Status Date / Time lamotrigine Allergy Rash Verified 02/19/25 14:55 Plan I have reviewed the history and physical and performed a pertinent physical examination on my patient. No changes have occurred unless specified. Time Spent With Patient Time: Total time managing care of this patient today ____ minutes.
--- NOTE | 2025-02-24 13:11 | HO.ECTPROC ---
ECT Procedure Note Diagnosis/Treatment Date of Service: 02/24/25 Diagnosis: Major Depressive Disorder Current Treatment Number: 1 Treatment: Series Time: Total time managing care of this patient today __40__ minutes. ECT Settings Device: THYMATRON DGx Electrode Placement: Right Unilateral Program/Pulse Width: 0.25 Energy Percent: 100 Seizure Duration By EEG (in seconds): 23 Medications Administration General Anesthetic: Methohexital (80) Muscle Relaxant: Succinylcholine (70) Ancillary Medications Miscillaneous Medications: Other (lidocaine pre) Airway Management Airway Management: Bag Mask Ventilation Treatment Recommendations Notes: recommend increasing sux to 80 due to substantial contraction during Sz Pt Tolerated Procedure w/o Issue: Yes
[2025-02-24] MEDS: buPROPion HCL 100 MG TABLET PO (14:18)
[2025-02-24] MEDS: Acetaminophen 325 MG TABLET 650 MG PO ×2 (14:18→20:45)
--- NOTE | 2025-02-24 15:23 | HO.PSYCHPN ---
Subjective Subjective Date of Service: 02/24/25 Reason For Visit: MDD Interim History: seen in ECT suite. calm, cooperative. no change in presentation. ECT completed. per staff, angry re ECT delays and failure yesterday. slept. Mental Status Exam Mental Status Exam Narrative: well dressed and kempt. no PMA/PMR. cooperative. speech decr amount, nml rate, soft, incr latency. thoughts linear and logical. affect constricted, normo-intense, non-labile. mood depressed. no SI/SIBI/HI/AVH expressed. Diagnostics Vital Signs (24Hr): Vital Signs - 24 hr 02/23/25 15:54 02/23/25 19:14 02/24/25 07:42 Temperature 97.5 F 97.6 F 97.8 F Pulse Rate 65 64 55 Respiratory Rate 12 16 16 Blood Pressure 141/70 H 131/67 111/66 Pulse Oximetry 97 100 95 Oxygen Delivery Method Room Air Room Air Room Air Oxygen Flow Rate 02/24/25 12:22 02/24/25 12:36 02/24/25 13:12 Temperature 98.1 F 97.0 F 97.2 F Pulse Rate 71 59 79 Respiratory Rate 16 16 18 Blood Pressure 138/80 133/70 162/75 H Pulse Oximetry 99 98 99 Oxygen Delivery Method Room Air Room Air Nasal Cannula with ETCO2 Oxygen Flow Rate 2 02/24/25 13:17 02/24/25 13:22 02/24/25 13:27 Temperature Pulse Rate 84 86 78 Respiratory Rate 20 19 18 Blood Pressure 155/83 H 157/79 H 155/78 H Pulse Oximetry 98 99 99 Oxygen Delivery Method Nasal Cannula with ETCO2 Nasal Cannula with ETCO2 Nasal Cannula with ETCO2 Oxygen Flow Rate 2 2 2 02/24/25 13:42 02/24/25 13:55 Temperature 97.4 F Pulse Rate 62 Respiratory Rate 18 Blood Pressure 152/76 H Pulse Oximetry 99 Oxygen Delivery Method Room Air Oxygen Flow Rate BMI result Body Mass Index 26.6 Labs 02/20/25 08:09 Medications Medications Current Medications Acetaminophen (Acetaminophen 325 Mg Tablet) 650 mg PO Q6H PRN PRN Reason: Headache/Pain, Scale 1-10 Last Admin: 02/24/25 14:18 Dose: 650 mg Al Hydroxide/Mg Hydroxide (Magnesium Hydrox/Alum Hydrox 30 Ml Oral.Susp) 30 ml PO Q6H PRN PRN Reason: Heartburn/Nausea Amlodipine Besylate (Amlodipine Besylate 2.5 Mg Tablet) 2.5 mg PO DAILY [facility]; Protocol Last Admin: 02/24/25 11:05 Dose: Not Given Bupropion HCl (Bupropion Hcl 100 Mg Tablet) 100 mg PO BID@0900,1500 [facility] Last Admin: 02/24/25 14:18 Dose: 100 mg Calcium Carbonate/Cholecalciferol (Calcium + Vitamin D 250 Mg Tablet) 1,000 mg PO DAILY [facility] Last Admin: 02/24/25 11:06 Dose: Not Given Fluticasone Propionate (Fluticasone Propionate Nasal 16 Gm [place]) 1 spray NOSTRIL-B DAILY [facility] Last Admin: 02/24/25 11:06 Dose: Not Given Hydroxyzine HCl (Hydroxyzine Hcl 25 Mg Tablet) 25 mg PO Q6H PRN PRN Reason: mild anxiety Last Admin: 02/19/25 23:05 Dose: 25 mg Levothyroxine Sodium (Levothyroxine Sodium 50 Mcg Tablet) 50 mcg PO DAILY@0600 [facility] Last Admin: 02/24/25 11:05 Dose: Not Given [place] Carbonate ([place] Carbonate 300 Mg Capsule) 600 mg PO BEDTIME [facility] Last Admin: 02/22/25 21:16 Dose: Not Given Magnesium Hydroxide (Milk Of Magnesia 30 Ml Oral.Susp) 30 ml PO DAILY PRN PRN Reason: Constipation Last Admin: 02/20/25 09:00 Dose: 30 ml Nicotine (Nicotine 21 Mg Patch.Td24) 21 mg TRANSDERMA DAILY [facility] Last Admin: 02/24/25 11:06 Dose: Not Given Nicotine Polacrilex (Nicotine Polacrilex 2 Mg Gum) 4 mg BUCCAL Q2H PRN PRN Reason: Nicotine Cravings Polyethylene Glycol (Polyethylene Glycol 3350 17 Gm Powd.Pack) 17 gm PO DAILY PRN PRN Reason: Constipation Senna (Sennosides 8.6 Mg Tablet) 17.2 mg PO BEDTIME PRN PRN Reason: Constipation Last Admin: 02/21/25 20:56 Dose: 17.2 mg Allergies Allergies Allergy/AdvReac Type Severity Reaction Status Date / Time lamotrigine Allergy Rash Verified 02/19/25 14:55 Assessment & Plan Assessment & Plan (1) Hypothyroidism: Status: Acute Code(s): E03.9 - Hypothyroidism, unspecified (2) Major depressive disorder with current active episode: Qualifiers: Major depression recurrence: unspecified whether recurrent Major depression episode severity: unspecified Qualified Code(s): F32.9 - Major depressive disorder, single episode, unspecified Status: Acute Code(s): F32.9 - Major depressive disorder, single episode, unspecified (3) HTN (hypertension): Status: Acute Code(s): I10 - Essential (primary) hypertension (4) Sleep apnea: Status: Acute Code(s): G47.30 - Sleep apnea, unspecified Plan continue home meds. hold new xanax from [place] inpatient as well as home [facility]. EKG, hospitalist consult for ECT risk stratification. ECT sunday. 02/21: uncertainty around controlled substance prescriptions/regimen. As per [facility] through [place] pharmacy: Eszopiclone 1 Mg Tablet, ativan 0.5mg bid January 2025 and prev xanax shelter until December 2024. Pt is not on stimulant regimen and reports not having a history of ADD or ADHD and Agreeable to discontinuing order stimulant. Will order Ambien as Eszopiclone not available 02/22: Unclear if ECT is scheduled for Sunday. No pre-ECT orders written. Will hold ambien and ativan for now and keep NPO in the morning in case she is scheduled. 02/23: no anesthesiologists available for ECT. case D/W pt's outpt at the [place], Elza De La Torre MD. dandre was considering augmentation with brexulti, caplyta, or pramipexole. reported akathisia with abilify at high dose, but it was effective until then. 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 ECT scheduled for tomorrow afternoon at 1300. 02/24: ECT #1 completed today. ECT #2 scheduled for tomorrow morning. no change in presentation, continue current mgmt. Reason for continued inpatient stay Substantial Risk for: harm to self, inability to function and rapid decompensation Time Spent With Patient Time: Total time managing care of this patient today __40__ minutes.
[2025-02-24] MEDS: methocarbamoL 750 MG TABLET PO (15:58)
[2025-02-24] MEDS: traMADoL HCL 50 MG TABLET 25 MG PO (15:58)
[2025-02-24] MEDS: hydrOXYzine HCL 25 MG TABLET PO (20:38)
[2025-02-25] VITALS (12 sets, daily range): BP systolic 125–149; BP diastolic 63–81; PULSE 56–76; RESP 12–16; TEMP 36.2–37.1; O2SAT 96–98
--- NOTE | 2025-02-25 06:07 | PC.NURSE ---
ECT-has remained NPO for ECT. synthroid not given due to status.
--- NOTE | 2025-02-25 08:23 | MHC.SHP ---
Pre-Procedural Eval Section A - 24 Hr Update-Section A only Date of Service: 02/25/25 The patient is an INPATIENT: Yes Changes since office visit: Yes Patient answered all questions; No Cold of Flu in the past 2 weeks, No New Medical Problems and No Changes in Medication The patient has been examined within 24 hours of the surgical procedure. The History & Physical has been completed within 30 days and I have reviewed it.: Yes Section B - Complete if H&P > 30 days Chief Complaint: MDD Allergies: Allergies Allergy/AdvReac Type Severity Reaction Status Date / Time lamotrigine Allergy Rash Verified 02/19/25 14:55 Plan I have reviewed the history and physical and performed a pertinent physical examination on my patient. No changes have occurred unless specified. Time Spent With Patient Time: Total time managing care of this patient today ____ minutes.
--- NOTE | 2025-02-25 08:36 | HO.ECTPROC ---
ECT Procedure Note Diagnosis/Treatment Date of Service: 02/25/25 Diagnosis: Major Depressive Disorder Previous ECT Date: 02/24/25 Current Treatment Number: 2 Treatment: Series Interval Clinical Notes: Patient had some muscular and jaw pain after last treatment succinylcholine was increased to 90 mg. Patient treated right unilateral 100 sent energy 0.25 pulse with had a seizure of 23 seconds Time: Total time managing care of this patient today ____ minutes. ECT Settings Device: THYMATRON DGx Electrode Placement: Right Unilateral Program/Pulse Width: 0.25 Energy Percent: 100 Seizure Duration By EEG (in seconds): 23 Medications Administration General Anesthetic: Methohexital (80) Muscle Relaxant: Succinylcholine (90) Ancillary Medications Analgesics: Torodol - Pre ECT (15) Anti-emetics: Zofran - Pre ECT Miscillaneous Medications: Other (lidocaine pre) Airway Management Airway Management: Bag Mask Ventilation Treatment Recommendations Notes: Consider increase to 0.5 pulse with program Pt Tolerated Procedure w/o Issue: Yes
--- NOTE | 2025-02-25 09:03 | P.CONAN_ITS ---
HPI - Anesthesia Eval Consult details Narrative: ect PMFSH Active Problems Active Problems: All Active Problems Generalized anxiety disorder (Acute) Seasonal allergies (Acute) Sleep apnea (Acute) Hypothyroidism (Acute) HTN (hypertension) (Acute) Osteopenia (Acute) Major depressive disorder with current active episode (Acute) Family History Family history of problems with anesthesia: No Surgical History History of Problems with Anesthesia: No Social History Social History Household Members: Significant Other and Children Housing: House Do you presently have visiting nurse or other home services: No Patient Tobacco Use Status: Never used Tobacco e-Cigarette/Vaping Use: Never Used Currently Displaying Signs/Symptoms of Drug Intoxication Withdrawal: No Have you been hit, kicked, punched, or otherwise hurt by someone within the past year? If so, by whom?: No Do you feel safe in your current relationship?: No Is there a partner from a previous relationship who is making you feel unsafe now?: No Are you made to feel afraid or neglected: No Advance Directives: No Advance Directives Information Provided: Yes Do you have thoughts of harming others: None Do you have a plan to hurt others: No Plan Recently lost weight without trying: No Eating poorly because of decreased appetite: No Nutrition Risks: No Nutritional Risk Patient : No : No Poor oral hygiene: No service: Yes Sexual orientation: Lesbian/Jones/Homosexual Meds Allergies Allergy/AdvReac Type Severity Reaction Status Date / Time lamotrigine Allergy Rash Verified 02/19/25 14:55 Active Medications: Current Medications Acetaminophen (Acetaminophen 325 Mg Tablet) 650 mg PO Q6H PRN PRN Reason: Headache/Pain, Scale 1-10 Last Admin: 02/24/25 20:45 Dose: 650 mg Al Hydroxide/Mg Hydroxide (Magnesium Hydrox/Alum Hydrox 30 Ml Oral.Susp) 30 ml PO Q6H PRN PRN Reason: Heartburn/Nausea Amlodipine Besylate (Amlodipine Besylate 2.5 Mg Tablet) 2.5 mg PO DAILY [facility]; Protocol Last Admin: 02/24/25 11:05 Dose: Not Given Bupropion HCl (Bupropion Hcl 100 Mg Tablet) 100 mg PO BID@0900,1500 [facility] Last Admin: 02/24/25 14:18 Dose: 100 mg Calcium Carbonate/Cholecalciferol (Calcium + Vitamin D 250 Mg Tablet) 1,000 mg PO DAILY [facility] Last Admin: 02/24/25 11:06 Dose: Not Given Fluticasone Propionate (Fluticasone Propionate Nasal 16 Gm [place]) 1 spray NOSTRIL-B DAILY [facility] Last Admin: 02/24/25 11:06 Dose: Not Given Hydroxyzine HCl (Hydroxyzine Hcl 25 Mg Tablet) 25 mg PO Q6H PRN PRN Reason: mild anxiety Last Admin: 02/24/25 20:38 Dose: 25 mg Lactated Ringer's (Lr) 1,000 mls @ 100 mls/hr IVCONT .Q10H [facility] Last Admin: 02/25/25 07:30 Dose: 100 mls/hr Levothyroxine Sodium (Levothyroxine Sodium 50 Mcg Tablet) 50 mcg PO DAILY@0600 [facility] Last Admin: 02/24/25 11:05 Dose: Not Given [place] Carbonate ([place] Carbonate 300 Mg Capsule) 600 mg PO BEDTIME [facility] Last Admin: 02/22/25 21:16 Dose: Not Given Magnesium Hydroxide (Milk Of Magnesia 30 Ml Oral.Susp) 30 ml PO DAILY PRN PRN Reason: Constipation Last Admin: 02/20/25 09:00 Dose: 30 ml Nicotine (Nicotine 21 Mg Patch.Td24) 21 mg TRANSDERMA DAILY [facility] Last Admin: 02/24/25 11:06 Dose: Not Given Nicotine Polacrilex (Nicotine Polacrilex 2 Mg Gum) 4 mg BUCCAL Q2H PRN PRN Reason: Nicotine Cravings Polyethylene Glycol (Polyethylene Glycol 3350 17 Gm Powd.Pack) 17 gm PO DAILY PRN PRN Reason: Constipation Senna (Sennosides 8.6 Mg Tablet) 17.2 mg PO BEDTIME PRN PRN Reason: Constipation Last Admin: 02/21/25 20:56 Dose: 17.2 mg Home Medications ?Medication ?Instructions ?Recorded ?Confirmed ?Last Taken ?Type acetaminophen 650 mg tablet 650 mg PO Q6H PRN Pain (Scale 02/19/25 02/19/25 Unknown History Score 1-3) alprazolam 0.25 mg tablet 0.25 mg PO DAILY PRN Anxiety 02/19/25 02/19/25 Unknown History amlodipine 2.5 mg tablet 2.5 mg PO BID 02/19/25 02/19/25 02/19/25 History bupropion HCl 100 mg tablet,12 hr 100 mg PO BID 02/19/25 02/19/25 02/19/25 History sustained-release calcium 500 mg (as 2 tab PO DAILY 02/19/25 02/19/25 02/19/25 History carbonate)-vitamin D3 5 mcg (200 unit) tablet (Calcium 500 + D) cetirizine 10 mg tablet 10 mg PO DAILY 02/19/25 02/19/25 02/19/25 History dextroamphetamine sulfate 15 mg 15 mg PO BID 02/19/25 02/19/25 02/19/25 History capsule,extended release eszopiclone 1 mg tablet 1 mg PO BEDTIME 02/19/25 02/19/25 Unknown History fluticasone propionate 50 1 spray intranasal DAILY 02/19/25 02/19/25 Unknown History mcg/actuation nasal spray,suspension levothyroxine 50 mcg tablet 50 mcg PO DAILY 02/19/25 02/19/25 02/19/25 History lithium carbonate 600 mg capsule 600 mg PO BEDTIME 02/19/25 02/19/25 Unknown History polyethylene glycol 3350 17 gram 17 g PO DAILY PRN Constipation 02/19/25 02/19/25 Unknown History oral powder packet sennosides 8.6 mg tablet (senna) 8.6 mg PO BEDTIME PRN Constipation 02/19/25 02/19/25 Unknown History Exam Height,Weight and Vital Signs: Height 5 ft 5 in Weight 72.484 kg Last Vital Signs Temp 98 F 02/25/25 08:40 Pulse 70 02/25/25 08:55 Resp 15 02/25/25 08:55 BP 134/68 02/25/25 08:55 Pulse Ox 98 02/25/25 08:55 O2 Del Method Nasal Cannula with Capnography 02/25/25 08:55 O2 Flow Rate 98 02/25/25 08:55 Pertinent Lab Results Pertinent Lab Results: Laboratory Tests 02/20/25 08:09 Sodium 141 Potassium 4.5 Chloride 111 H Carbon Dioxide 26 Anion Gap 9 L BUN 11 Creatinine 0.79 Estim Creat Clear Calc 67.9 Estimated GFR > 60 Random Glucose 86 Estimat Average Glucose 103 Hemoglobin A1c % 5.2 Calcium 9.6 Total Bilirubin 0.3 AST 22 ALT 23 Alkaline Phosphatase 64 Total Protein 6.0 L Albumin 3.7 Triglycerides 161 H Cholesterol 247 H LDL Cholesterol, Calc 157 H HDL Cholesterol 58 Airway Mallampati Class: II TM Dist: >3cm Neck ROM: Limited Heart: rrr Lungs: cya Assessment and Plan Assessment Anesthesia Assessment: Anesthesia Plan Discussed and Chart Reviewed Final Anesthetic Review Family History of Problems with Anesthesia: No History of Problems with Anesthesia: No NPO: Yes ASA Class: III Final Preanesthetic Review: No Changes in Pt Med Stat, Meds/Allgs Chart Reviewed, Consent Obtained/Reviewed and Anes Risks/Benef Reviewed Patient Risk: Intermediate Procedure Risk: Low Anesthetic Plan Anesthetic Plan: GA Disposition: Standard PACU
--- NOTE | 2025-02-25 09:05 | HO.ANESPROP2 ---
HPI - Anesthesia Eval Consult details Narrative: ect PMFSH Active Problems Active Problems: All Active Problems Generalized anxiety disorder (Acute) Seasonal allergies (Acute) Sleep apnea (Acute) Hypothyroidism (Acute) HTN (hypertension) (Acute) Osteopenia (Acute) Major depressive disorder with current active episode (Acute) Family History Family history of problems with anesthesia: No Surgical History History of Problems with Anesthesia: No Social History Social History Household Members: Significant Other and Children Housing: House Do you presently have visiting nurse or other home services: No Patient Tobacco Use Status: Never used Tobacco e-Cigarette/Vaping Use: Never Used Currently Displaying Signs/Symptoms of Drug Intoxication Withdrawal: No Have you been hit, kicked, punched, or otherwise hurt by someone within the past year? If so, by whom?: No Do you feel safe in your current relationship?: No Is there a partner from a previous relationship who is making you feel unsafe now?: No Are you made to feel afraid or neglected: No Advance Directives: No Advance Directives Information Provided: Yes Do you have thoughts of harming others: None Do you have a plan to hurt others: No Plan Recently lost weight without trying: No Eating poorly because of decreased appetite: No Nutrition Risks: No Nutritional Risk Patient : No : No Poor oral hygiene: No service: Yes Sexual orientation: Lesbian/Jones/Homosexual Meds Allergies Allergy/AdvReac Type Severity Reaction Status Date / Time lamotrigine Allergy Rash Verified 02/19/25 14:55 Active Medications: Current Medications Acetaminophen (Acetaminophen 325 Mg Tablet) 650 mg PO Q6H PRN PRN Reason: Headache/Pain, Scale 1-10 Last Admin: 02/24/25 20:45 Dose: 650 mg Al Hydroxide/Mg Hydroxide (Magnesium Hydrox/Alum Hydrox 30 Ml Oral.Susp) 30 ml PO Q6H PRN PRN Reason: Heartburn/Nausea Amlodipine Besylate (Amlodipine Besylate 2.5 Mg Tablet) 2.5 mg PO DAILY [facility]; Protocol Last Admin: 02/24/25 11:05 Dose: Not Given Bupropion HCl (Bupropion Hcl 100 Mg Tablet) 100 mg PO BID@0900,1500 [facility] Last Admin: 02/24/25 14:18 Dose: 100 mg Calcium Carbonate/Cholecalciferol (Calcium + Vitamin D 250 Mg Tablet) 1,000 mg PO DAILY [facility] Last Admin: 02/24/25 11:06 Dose: Not Given Fluticasone Propionate (Fluticasone Propionate Nasal 16 Gm [place]) 1 spray NOSTRIL-B DAILY [facility] Last Admin: 02/24/25 11:06 Dose: Not Given Hydroxyzine HCl (Hydroxyzine Hcl 25 Mg Tablet) 25 mg PO Q6H PRN PRN Reason: mild anxiety Last Admin: 02/24/25 20:38 Dose: 25 mg Lactated Ringer's (Lr) 1,000 mls @ 100 mls/hr IVCONT .Q10H [facility] Last Admin: 02/25/25 07:30 Dose: 100 mls/hr Levothyroxine Sodium (Levothyroxine Sodium 50 Mcg Tablet) 50 mcg PO DAILY@0600 [facility] Last Admin: 02/24/25 11:05 Dose: Not Given [place] Carbonate ([place] Carbonate 300 Mg Capsule) 600 mg PO BEDTIME [facility] Last Admin: 02/22/25 21:16 Dose: Not Given Magnesium Hydroxide (Milk Of Magnesia 30 Ml Oral.Susp) 30 ml PO DAILY PRN PRN Reason: Constipation Last Admin: 02/20/25 09:00 Dose: 30 ml Nicotine (Nicotine 21 Mg Patch.Td24) 21 mg TRANSDERMA DAILY [facility] Last Admin: 02/24/25 11:06 Dose: Not Given Nicotine Polacrilex (Nicotine Polacrilex 2 Mg Gum) 4 mg BUCCAL Q2H PRN PRN Reason: Nicotine Cravings Polyethylene Glycol (Polyethylene Glycol 3350 17 Gm Powd.Pack) 17 gm PO DAILY PRN PRN Reason: Constipation Senna (Sennosides 8.6 Mg Tablet) 17.2 mg PO BEDTIME PRN PRN Reason: Constipation Last Admin: 02/21/25 20:56 Dose: 17.2 mg Home Medications ?Medication ?Instructions ?Recorded ?Confirmed ?Last Taken ?Type acetaminophen 650 mg tablet 650 mg PO Q6H PRN Pain (Scale 02/19/25 02/19/25 Unknown History Score 1-3) alprazolam 0.25 mg tablet 0.25 mg PO DAILY PRN Anxiety 02/19/25 02/19/25 Unknown History amlodipine 2.5 mg tablet 2.5 mg PO BID 02/19/25 02/19/25 02/19/25 History bupropion HCl 100 mg tablet,12 hr 100 mg PO BID 02/19/25 02/19/25 02/19/25 History sustained-release calcium 500 mg (as 2 tab PO DAILY 02/19/25 02/19/25 02/19/25 History carbonate)-vitamin D3 5 mcg (200 unit) tablet (Calcium 500 + D) cetirizine 10 mg tablet 10 mg PO DAILY 02/19/25 02/19/25 02/19/25 History dextroamphetamine sulfate 15 mg 15 mg PO BID 02/19/25 02/19/25 02/19/25 History capsule,extended release eszopiclone 1 mg tablet 1 mg PO BEDTIME 02/19/25 02/19/25 Unknown History fluticasone propionate 50 1 spray intranasal DAILY 02/19/25 02/19/25 Unknown History mcg/actuation nasal spray,suspension levothyroxine 50 mcg tablet 50 mcg PO DAILY 02/19/25 02/19/25 02/19/25 History lithium carbonate 600 mg capsule 600 mg PO BEDTIME 02/19/25 02/19/25 Unknown History polyethylene glycol 3350 17 gram 17 g PO DAILY PRN Constipation 02/19/25 02/19/25 Unknown History oral powder packet sennosides 8.6 mg tablet (senna) 8.6 mg PO BEDTIME PRN Constipation 02/19/25 02/19/25 Unknown History Exam Height,Weight and Vital Signs: Height 5 ft 5 in Weight 72.484 kg Last Vital Signs Temp 98 F 02/25/25 08:40 Pulse 70 02/25/25 08:55 Resp 15 02/25/25 08:55 BP 134/68 02/25/25 08:55 Pulse Ox 98 02/25/25 08:55 O2 Del Method Nasal Cannula with Capnography 02/25/25 08:55 O2 Flow Rate 98 02/25/25 08:55 Pertinent Lab Results Pertinent Lab Results: Laboratory Tests 02/20/25 08:09 Sodium 141 Potassium 4.5 Chloride 111 H Carbon Dioxide 26 Anion Gap 9 L BUN 11 Creatinine 0.79 Estim Creat Clear Calc 67.9 Estimated GFR > 60 Random Glucose 86 Estimat Average Glucose 103 Hemoglobin A1c % 5.2 Calcium 9.6 Total Bilirubin 0.3 AST 22 ALT 23 Alkaline Phosphatase 64 Total Protein 6.0 L Albumin 3.7 Triglycerides 161 H Cholesterol 247 H LDL Cholesterol, Calc 157 H HDL Cholesterol 58 Airway Mallampati Class: II TM Dist: >3cm Neck ROM: Full Heart: rrr Lungs: cta Assessment and Plan Assessment Anesthesia Assessment: Anesthesia Plan Discussed and Chart Reviewed Final Anesthetic Review Family History of Problems with Anesthesia: No History of Problems with Anesthesia: No NPO: Yes ASA Class: III Final Preanesthetic Review: No Changes in Pt Med Stat, Meds/Allgs Chart Reviewed, Consent Obtained/Reviewed and Anes Risks/Benef Reviewed Patient Risk: Intermediate Procedure Risk: Low Anesthetic Plan Anesthetic Plan: GA Disposition: Standard PACU
[2025-02-25] MEDS: Calcium + Vitamin D 250 MG TABLET 1000 MG PO (10:11)
[2025-02-25] MEDS: amLODIPine Besylate 2.5 MG TABLET PO (10:12)
[2025-02-25] MEDS: buPROPion HCL 100 MG TABLET PO (10:13)
[2025-02-25] MEDS: hydrOXYzine HCL 25 MG TABLET PO ×2 (10:38→20:13)
--- NOTE | 2025-02-25 15:15 | HO.PSYCHPN ---
Subjective Subjective Date of Service: 02/25/25 Reason For Visit: MDD Interim History: calm, cooperative. successfully completed ECT #2 today. no jaw pain or DIOP today. discussed meds moving forward. pt agrees to advance wellbutrin for the time being in the absence of DXM. also agrees to trial of caplyta, per dr. amos' recommendation. per staff, +dep/anx. ECT yesterday. flat, visible. slept 8 hours. Mental Status Exam Mental Status Exam Narrative: well dressed and kempt. no PMA/PMR. cooperative. speech decr amount, nml rate, soft, incr latency. thoughts linear and logical. affect constricted, normo-intense, non-labile. mood depressed. no SI/SIBI/HI/AVH expressed. Diagnostics Vital Signs (24Hr): Vital Signs - 24 hr 02/24/25 20:00 02/25/25 06:01 02/25/25 07:00 Temperature 97.5 F 98.7 F 97.2 F Pulse Rate 65 56 62 Respiratory Rate 16 14 16 Blood Pressure 129/69 125/74 140/77 H Pulse Oximetry 98 97 96 Oxygen Delivery Method Room Air Room Air 02/25/25 07:45 02/25/25 08:40 02/25/25 08:45 Temperature 98.7 F 98 F Pulse Rate 56 76 71 Respiratory Rate 14 15 15 Blood Pressure 125/74 132/70 139/75 Pulse Oximetry 97 98 98 Oxygen Delivery Method Room Air Nasal Cannula with ETCO2 Nasal Cannula with ETCO2 02/25/25 08:50 02/25/25 08:55 02/25/25 09:05 Temperature Pulse Rate 70 70 68 Respiratory Rate 15 15 12 Blood Pressure 135/74 134/68 131/63 Pulse Oximetry 98 98 98 Oxygen Delivery Method Nasal Cannula with ETCO2 Nasal Cannula with ETCO2 Room Air 02/25/25 09:19 02/25/25 09:45 02/25/25 10:12 Temperature 97.6 F 97.6 F Pulse Rate 65 61 Respiratory Rate 12 Blood Pressure 131/63 149/81 H 149/81 H Pulse Oximetry 98 98 Oxygen Delivery Method Room Air BMI result Body Mass Index 26.6 Labs 02/20/25 08:09 Medications Medications Current Medications Acetaminophen (Acetaminophen 325 Mg Tablet) 650 mg PO Q6H PRN PRN Reason: Headache/Pain, Scale 1-10 Last Admin: 02/24/25 20:45 Dose: 650 mg Al Hydroxide/Mg Hydroxide (Magnesium Hydrox/Alum Hydrox 30 Ml Oral.Susp) 30 ml PO Q6H PRN PRN Reason: Heartburn/Nausea Amlodipine Besylate (Amlodipine Besylate 2.5 Mg Tablet) 2.5 mg PO DAILY [facility]; Protocol Last Admin: 02/25/25 10:12 Dose: 2.5 mg Bupropion HCl (Bupropion Hcl Xl 300 Mg Tab.Er.24h) 300 mg PO DAILY [facility] Calcium Carbonate/Cholecalciferol (Calcium + Vitamin D 250 Mg Tablet) 1,000 mg PO DAILY [facility] Last Admin: 02/25/25 10:11 Dose: 1,000 mg Fluticasone Propionate (Fluticasone Propionate Nasal 16 Gm [place]) 1 spray NOSTRIL-B DAILY [facility] Last Admin: 02/25/25 10:14 Dose: Not Given Hydroxyzine HCl (Hydroxyzine Hcl 25 Mg Tablet) 25 mg PO Q6H PRN PRN Reason: mild anxiety Last Admin: 02/25/25 10:38 Dose: 25 mg Levothyroxine Sodium (Levothyroxine Sodium 50 Mcg Tablet) 50 mcg PO DAILY@0600 [facility] Last Admin: 02/24/25 11:05 Dose: Not Given [place] Carbonate ([place] Carbonate 300 Mg Capsule) 600 mg PO BEDTIME [facility] Last Admin: 02/22/25 21:16 Dose: Not Given Lorazepam (Lorazepam 0.5 Mg Tablet) 0.5 mg PO Q4H PRN PRN Reason: severe anxiety Magnesium Hydroxide (Milk Of Magnesia 30 Ml Oral.Susp) 30 ml PO DAILY PRN PRN Reason: Constipation Last Admin: 02/20/25 09:00 Dose: 30 ml Naloxone HCl (Naloxone Hcl 0.4 Mg/Ml Vial) 0.04 mg IVPUSH Q5M PRN PRN Reason: Excessive sedation or RR < 8 Nicotine (Nicotine 21 Mg Patch.Td24) 21 mg TRANSDERMA DAILY [facility] Last Admin: 02/25/25 10:14 Dose: Not Given Nicotine Polacrilex (Nicotine Polacrilex 2 Mg Gum) 4 mg BUCCAL Q2H PRN PRN Reason: Nicotine Cravings Polyethylene Glycol (Polyethylene Glycol 3350 17 Gm Powd.Pack) 17 gm PO DAILY PRN PRN Reason: Constipation Senna (Sennosides 8.6 Mg Tablet) 17.2 mg PO BEDTIME PRN PRN Reason: Constipation Last Admin: 02/21/25 20:56 Dose: 17.2 mg Allergies Allergies Allergy/AdvReac Type Severity Reaction Status Date / Time lamotrigine Allergy Rash Verified 02/19/25 14:55 Assessment & Plan Assessment & Plan (1) Hypothyroidism: Status: Acute Code(s): E03.9 - Hypothyroidism, unspecified (2) Major depressive disorder with current active episode: Qualifiers: Major depression recurrence: unspecified whether recurrent Major depression episode severity: unspecified Qualified Code(s): F32.9 - Major depressive disorder, single episode, unspecified Status: Acute Code(s): F32.9 - Major depressive disorder, single episode, unspecified (3) HTN (hypertension): Status: Acute Code(s): I10 - Essential (primary) hypertension (4) Sleep apnea: Status: Acute Code(s): G47.30 - Sleep apnea, unspecified Plan continue home meds. hold new xanax from [facility] inpatient as well as home [facility]. EKG, hospitalist consult for ECT risk stratification. ECT sunday. 02/21: uncertainty around controlled substance prescriptions/regimen. As per [place] [facility] through [facility] pharmacy: Eszopiclone 1 Mg Tablet, ativan 0.5mg bid January 2025 and prev xanax snf until December 2024. Pt is not on stimulant regimen and reports not having a history of ADD or ADHD and Agreeable to discontinuing order stimulant. Will order Ambien as Eszopiclone not available 02/22: Unclear if ECT is scheduled for Sunday. No pre-ECT orders written. Will hold ambien and ativan for now and keep NPO in the morning in case she is scheduled. 02/23: no anesthesiologists available for ECT. case D/W pt's outpt at the [facility], Elza Amos MD. dandre was considering augmentation with brexulti, caplyta, or pramipexole. reported akathisia with abilify at high dose, but it was effective until then. 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 ECT scheduled for tomorrow afternoon at 1300. 02/24: ECT #1 completed today. ECT #2 scheduled for tomorrow morning. no change in presentation, continue current mgmt. 02/25: ECT #2 completed without jaw pain or DIOP after. continues to feel anxious and depressed. change wellbutrin SR 100 BID to XL 300 daily. start caplyta 42 mg daily when available from [facility] [place]. Reason for continued inpatient stay Substantial Risk for: harm to self and inability to function Time Spent With Patient Time: Total time managing care of this patient today __35__ minutes.
[2025-02-25] MEDS: Acetaminophen 325 MG TABLET 650 MG PO (16:49)
[2025-02-25] MEDS: Lithium Carbonate 300 MG CAPSULE 600 MG PO (20:13)
[2025-02-25] MEDS: LORazepam 0.5 MG TABLET PO (20:33)
[2025-02-26] MEDS: Levothyroxine Sodium 50 MCG TABLET PO (06:38)
[2025-02-26 07:00] VITALS: BMI 26.2
[2025-02-26 08:10] VITALS: BP 138/63; PULSE 58; RESP 14; TEMP 36.8; O2SAT 96
[2025-02-26 08:16] VITALS: BP 138/70
[2025-02-26] MEDS: Calcium + Vitamin D 250 MG TABLET 1000 MG PO (08:16)
[2025-02-26] MEDS: amLODIPine Besylate 2.5 MG TABLET PO (08:16)
[2025-02-26] MEDS: Fluticasone Propionate Nasal 16 GM SPRAY 1 SPRAY NOSTRIL-B (08:18)
[2025-02-26] MEDS: buPROPion HCl XL 300 MG TAB.ER.24H PO (08:19)
[2025-02-26] MEDS: Acetaminophen 325 MG TABLET 650 MG PO (09:09)
--- NOTE | 2025-02-26 12:49 | P.PNPSI_ITS ---
Subjective Subjective Date of Service: 02/26/25 Reason For Visit: MDD Interim History: anxious due to ECTs. med changes reviewed, delay in getting caplyta. c/o physical soreness, attributed to 2 recent ECTs. per staff, anxious. showered with encouragement. taking meds. slept about 8 hours. Mental Status Exam Mental Status Exam Narrative: well dressed and kempt. no PMA/PMR. cooperative. speech decr amount, nml rate, soft, incr latency. thoughts linear and logical. affect constricted, normo-intense, non-labile. mood anxious. no SI/SIBI/HI/AVH expressed. Diagnostics Vital Signs (24Hr): Vital Signs - 24 hr 02/25/25 20:00 02/26/25 08:10 02/26/25 08:16 Temperature 97.6 F 98.2 F Pulse Rate 67 58 Respiratory Rate 16 14 Blood Pressure 129/81 138/63 138/70 Pulse Oximetry 98 96 Oxygen Delivery Method Room Air Room Air BMI result Body Mass Index 26.6 Labs 02/20/25 08:09 Medications Medications Current Medications Acetaminophen (Acetaminophen 325 Mg Tablet) 650 mg PO Q6H PRN PRN Reason: Headache/Pain, Scale 1-10 Last Admin: 02/26/25 09:09 Dose: 650 mg Al Hydroxide/Mg Hydroxide (Magnesium Hydrox/Alum Hydrox 30 Ml Oral.Susp) 30 ml PO Q6H PRN PRN Reason: Heartburn/Nausea Amlodipine Besylate (Amlodipine Besylate 2.5 Mg Tablet) 2.5 mg PO DAILY [facility]; Protocol Last Admin: 02/26/25 08:16 Dose: 2.5 mg Bupropion HCl (Bupropion Hcl Xl 300 Mg Tab.Er.24h) 300 mg PO DAILY [facility] Last Admin: 02/26/25 08:19 Dose: 300 mg Calcium Carbonate/Cholecalciferol (Calcium + Vitamin D 250 Mg Tablet) 1,000 mg PO DAILY [facility] Last Admin: 02/26/25 08:16 Dose: 1,000 mg Fluticasone Propionate (Fluticasone Propionate Nasal 16 Gm [place]) 1 spray NOSTRIL-B DAILY [facility] Last Admin: 02/26/25 08:18 Dose: 1 spray Hydroxyzine HCl (Hydroxyzine Hcl 25 Mg Tablet) 25 mg PO Q6H PRN PRN Reason: mild anxiety Last Admin: 02/25/25 20:13 Dose: 25 mg Levothyroxine Sodium (Levothyroxine Sodium 50 Mcg Tablet) 50 mcg PO DAILY@0600 [facility] Last Admin: 02/26/25 06:38 Dose: 50 mcg [place] Carbonate ([place] Carbonate 300 Mg Capsule) 600 mg PO BEDTIME [facility] Last Admin: 02/25/25 20:13 Dose: 600 mg Lorazepam (Lorazepam 0.5 Mg Tablet) 0.5 mg PO Q4H PRN PRN Reason: severe anxiety Last Admin: 02/25/25 20:33 Dose: 0.5 mg Magnesium Hydroxide (Milk Of Magnesia 30 Ml Oral.Susp) 30 ml PO DAILY PRN PRN Reason: Constipation Last Admin: 02/20/25 09:00 Dose: 30 ml Naloxone HCl (Naloxone Hcl 0.4 Mg/Ml Vial) 0.04 mg IVPUSH Q5M PRN PRN Reason: Excessive sedation or RR < 8 Nicotine (Nicotine 21 Mg Patch.Td24) 21 mg TRANSDERMA DAILY [facility] Last Admin: 02/26/25 08:19 Dose: Not Given Nicotine Polacrilex (Nicotine Polacrilex 2 Mg Gum) 4 mg BUCCAL Q2H PRN PRN Reason: Nicotine Cravings Polyethylene Glycol (Polyethylene Glycol 3350 17 Gm Powd.Pack) 17 gm PO DAILY PRN PRN Reason: Constipation Senna (Sennosides 8.6 Mg Tablet) 17.2 mg PO BEDTIME PRN PRN Reason: Constipation Last Admin: 02/21/25 20:56 Dose: 17.2 mg Allergies Allergies Allergy/AdvReac Type Severity Reaction Status Date / Time lamotrigine Allergy Rash Verified 02/19/25 14:55 Assessment & Plan Assessment & Plan (1) Hypothyroidism: Status: Acute Code(s): E03.9 - Hypothyroidism, unspecified (2) Major depressive disorder with current active episode: Qualifiers: Major depression recurrence: unspecified whether recurrent Major depression episode severity: unspecified Qualified Code(s): F32.9 - Major depressive disorder, single episode, unspecified Status: Acute Code(s): F32.9 - Major depressive disorder, single episode, unspecified (3) HTN (hypertension): Status: Acute Code(s): I10 - Essential (primary) hypertension (4) Sleep apnea: Status: Acute Code(s): G47.30 - Sleep apnea, unspecified Plan continue home meds. [facility]. EKG, hospitalist consult for ECT risk stratification. ECT sunday. 02/21: uncertainty around controlled substance prescriptions/regimen. As per [place] [facility] through [place] pharmacy: Eszopiclone 1 Mg Tablet, ativan 0.5mg bid January 2025 and prev xanax lobsterman until December 2024. Pt is not on stimulant regimen and reports not having a history of ADD or ADHD and Agreeable to discontinuing order stimulant. Will order Ambien as Eszopiclone not available 02/22: Unclear if ECT is scheduled for Sunday. No pre-ECT orders written. Will hold ambien and ativan for now and keep NPO in the morning in case she is scheduled. 02/23: no anesthesiologists available for ECT. case D/W pt's outpt MD at the [place], Elza De La Torre MD. dandre was considering augmentation with brexulti, caplyta, or pramipexole. reported akathisia with abilify at high dose, but it was effective until then. 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 ECT scheduled for tomorrow afternoon at 1300. 02/24: ECT #1 completed today. ECT #2 scheduled for tomorrow morning. no change in presentation, continue current mgmt. 02/25: ECT #2 completed without jaw pain or DIOP after. continues to feel anxious and depressed. change wellbutrin SR 100 BID to XL 300 daily. start caplyta 42 mg daily when available from [facility] [place]. 02/26: attempting to get [place] approval of caplyta. ECT #3 tomorrow. anxious. no other notable events or behaviors. Reason for continued inpatient stay Substantial Risk for: harm to self and inability to function Time Spent With Patient Time: Total time managing care of this patient today _25___ minutes.
[2025-02-26 20:00] VITALS: BP 117/69; PULSE 58; RESP 16; TEMP 36.8; O2SAT 98
[2025-02-27] VITALS (11 sets, daily range): BP systolic 106–175; BP diastolic 63–97; PULSE 60–78; RESP 10–18; TEMP 36.3–36.9; O2SAT 96–98
[2025-02-27] MEDS: amLODIPine Besylate 2.5 MG TABLET PO (08:20)
[2025-02-27] MEDS: Levothyroxine Sodium 50 MCG TABLET PO (08:20)
[2025-02-27] MEDS: Lactated Ringers 1,000 ML 50 ML IVCONT (09:56)
--- NOTE | 2025-02-27 10:27 | MHC.SHP ---
Pre-Procedural Eval Section A - 24 Hr Update-Section A only Date of Service: 02/27/25 The patient is an INPATIENT: Yes Changes since office visit: Yes Patient answered all questions; No Cold of Flu in the past 2 weeks, No New Medical Problems and No Changes in Medication The patient has been examined within 24 hours of the surgical procedure. The History & Physical has been completed within 30 days and I have reviewed it.: Yes Section B - Complete if H&P > 30 days Chief Complaint: MDD Allergies: Allergies Allergy/AdvReac Type Severity Reaction Status Date / Time lamotrigine Allergy Rash Verified 02/19/25 14:55 Plan I have reviewed the history and physical and performed a pertinent physical examination on my patient. No changes have occurred unless specified. Time Spent With Patient Time: Total time managing care of this patient today ____ minutes.
--- NOTE | 2025-02-27 10:29 | HO.ECTPROC ---
ECT Procedure Note Diagnosis/Treatment Date of Service: 02/27/25 Diagnosis: Major Depressive Disorder Previous ECT Date: 02/25/25 Current Treatment Number: 3 Treatment: Series Interval Clinical Notes: Patient tolerating ect some muscle pain Time: Total time managing care of this patient today ____ minutes. ECT Settings Device: THYMATRON DGx Electrode Placement: Right Unilateral Program/Pulse Width: 0.25 Energy Percent: 100 Seizure Duration By EEG (in seconds): 24 Medications Administration General Anesthetic: Methohexital (80) Muscle Relaxant: Succinylcholine (90) Ancillary Medications Analgesics: Torodol - Pre ECT (15) Anti-emetics: Zofran - Pre ECT Miscillaneous Medications: Other (lidocaine pre) Airway Management Airway Management: Bag Mask Ventilation Treatment Recommendations Program/Pulse Width: 0.50 Notes: Consider increase to 0.5 pulse with program Pt Tolerated Procedure w/o Issue: Yes
--- NOTE | 2025-02-27 10:56 | HO.ANESPROP2 ---
[facility] Active Problems Active Problems: All Active Problems Generalized anxiety disorder (Acute) Seasonal allergies (Acute) Sleep apnea (Acute) Hypothyroidism (Acute) HTN (hypertension) (Acute) Osteopenia (Acute) Major depressive disorder with current active episode (Acute) Family History Family history of problems with anesthesia: No Surgical History History of Problems with Anesthesia: No Social History Social History Household Members: Significant Other and Children Housing: House Do you presently have visiting nurse or other home services: No Patient Tobacco Use Status: Never used Tobacco e-Cigarette/Vaping Use: Never Used Currently Displaying Signs/Symptoms of Drug Intoxication Withdrawal: No Have you been hit, kicked, punched, or otherwise hurt by someone within the past year? If so, by whom?: No Do you feel safe in your current relationship?: No Is there a partner from a previous relationship who is making you feel unsafe now?: No Are you made to feel afraid or neglected: No Advance Directives: No Advance Directives Information Provided: Yes Do you have thoughts of harming others: None Do you have a plan to hurt others: No Plan Recently lost weight without trying: No Eating poorly because of decreased appetite: No Nutrition Risks: No Nutritional Risk Patient : No : No Poor oral hygiene: No service: Yes Sexual orientation: Lesbian/Jones/Homosexual Meds Allergies Allergy/AdvReac Type Severity Reaction Status Date / Time lamotrigine Allergy Rash Verified 02/19/25 14:55 Active Medications: Current Medications Acetaminophen (Acetaminophen 325 Mg Tablet) 650 mg PO Q6H PRN PRN Reason: Headache/Pain, Scale 1-10 Last Admin: 02/26/25 09:09 Dose: 650 mg Al Hydroxide/Mg Hydroxide (Magnesium Hydrox/Alum Hydrox 30 Ml Oral.Susp) 30 ml PO Q6H PRN PRN Reason: Heartburn/Nausea Amlodipine Besylate (Amlodipine Besylate 2.5 Mg Tablet) 2.5 mg PO DAILY [facility]; Protocol Last Admin: 02/27/25 08:20 Dose: 2.5 mg Bupropion HCl (Bupropion Hcl Xl 300 Mg Tab.Er.24h) 300 mg PO DAILY [facility] Last Admin: 02/26/25 08:19 Dose: 300 mg Calcium Carbonate/Cholecalciferol (Calcium + Vitamin D 250 Mg Tablet) 1,000 mg PO DAILY [facility] Last Admin: 02/26/25 08:16 Dose: 1,000 mg Fluticasone Propionate (Fluticasone Propionate Nasal 16 Gm [place]) 1 spray NOSTRIL-B DAILY [facility] Last Admin: 02/26/25 08:18 Dose: 1 spray Hydroxyzine HCl (Hydroxyzine Hcl 25 Mg Tablet) 25 mg PO Q6H PRN PRN Reason: mild anxiety Last Admin: 02/25/25 20:13 Dose: 25 mg Lactated Ringer's (Lr) 1,000 mls @ 50 mls/hr IVCONT .Q20H [facility] Last Admin: 02/27/25 09:56 Dose: 50 mls/hr Levothyroxine Sodium (Levothyroxine Sodium 50 Mcg Tablet) 50 mcg PO DAILY@0600 [facility] Last Admin: 02/27/25 08:20 Dose: 50 mcg [place] Carbonate ([place] Carbonate 300 Mg Capsule) 600 mg PO BEDTIME [facility] Last Admin: 02/25/25 20:13 Dose: 600 mg Lorazepam (Lorazepam 0.5 Mg Tablet) 0.5 mg PO Q4H PRN PRN Reason: severe anxiety Last Admin: 02/25/25 20:33 Dose: 0.5 mg Magnesium Hydroxide (Milk Of Magnesia 30 Ml Oral.Susp) 30 ml PO DAILY PRN PRN Reason: Constipation Last Admin: 02/20/25 09:00 Dose: 30 ml Naloxone HCl (Naloxone Hcl 0.4 Mg/Ml Vial) 0.04 mg IVPUSH Q5M PRN PRN Reason: Excessive sedation or RR < 8 Naloxone HCl (Naloxone Hcl 0.4 Mg/Ml Vial) 0.04 mg IVPUSH Q5M PRN PRN Reason: Excessive sedation or RR < 8 Polyethylene Glycol (Polyethylene Glycol 3350 17 Gm Powd.Pack) 17 gm PO DAILY PRN PRN Reason: Constipation Senna (Sennosides 8.6 Mg Tablet) 17.2 mg PO BEDTIME PRN PRN Reason: Constipation Last Admin: 02/21/25 20:56 Dose: 17.2 mg Home Medications ?Medication ?Instructions ?Recorded ?Confirmed ?Last Taken ?Type acetaminophen 650 mg tablet 650 mg PO Q6H PRN Pain (Scale 02/19/25 02/19/25 Unknown History Score 1-3) alprazolam 0.25 mg tablet 0.25 mg PO DAILY PRN Anxiety 02/19/25 02/19/25 Unknown History amlodipine 2.5 mg tablet 2.5 mg PO BID 02/19/25 02/19/25 02/19/25 History bupropion HCl 100 mg tablet,12 hr 100 mg PO BID 02/19/25 02/19/25 02/19/25 History sustained-release calcium 500 mg (as 2 tab PO DAILY 02/19/25 02/19/25 02/19/25 History carbonate)-vitamin D3 5 mcg (200 unit) tablet (Calcium 500 + D) cetirizine 10 mg tablet 10 mg PO DAILY 02/19/25 02/19/25 02/19/25 History dextroamphetamine sulfate 15 mg 15 mg PO BID 02/19/25 02/19/25 02/19/25 History capsule,extended release eszopiclone 1 mg tablet 1 mg PO BEDTIME 02/19/25 02/19/25 Unknown History fluticasone propionate 50 1 spray intranasal DAILY 02/19/25 02/19/25 Unknown History mcg/actuation nasal spray,suspension levothyroxine 50 mcg tablet 50 mcg PO DAILY 02/19/25 02/19/25 02/19/25 History lithium carbonate 600 mg capsule 600 mg PO BEDTIME 02/19/25 02/19/25 Unknown History polyethylene glycol 3350 17 gram 17 g PO DAILY PRN Constipation 02/19/25 02/19/25 Unknown History oral powder packet sennosides 8.6 mg tablet (senna) 8.6 mg PO BEDTIME PRN Constipation 02/19/25 02/19/25 Unknown History Exam Height,Weight and Vital Signs: Height 5 ft 5 in Weight 71.441 kg Last Vital Signs Temp 97.3 F 02/27/25 09:51 Pulse 64 02/27/25 09:51 Resp 18 02/27/25 09:51 BP 142/77 H 02/27/25 09:51 Pulse Ox 97 02/27/25 09:51 O2 Del Method Room Air 02/27/25 09:51 O2 Flow Rate 98 02/25/25 08:50 Pertinent Lab Results Pertinent Lab Results: Laboratory Tests 02/20/25 08:09 Sodium 141 Potassium 4.5 Chloride 111 H Carbon Dioxide 26 Anion Gap 9 L BUN 11 Creatinine 0.79 Estim Creat Clear Calc 67.9 Estimated GFR > 60 Random Glucose 86 Estimat Average Glucose 103 Hemoglobin A1c % 5.2 Calcium 9.6 Total Bilirubin 0.3 AST 22 ALT 23 Alkaline Phosphatase 64 Total Protein 6.0 L Albumin 3.7 Triglycerides 161 H Cholesterol 247 H LDL Cholesterol, Calc 157 H HDL Cholesterol 58 Airway Mallampati Class: II (cap laterally) TM Dist: >3cm Neck ROM: Full Heart: rrr Lungs: cta Assessment and Plan Assessment Anesthesia Assessment: Anesthesia Plan Discussed and Chart Reviewed Final Anesthetic Review Family History of Problems with Anesthesia: No History of Problems with Anesthesia: No NPO: Yes ASA Class: III Final Preanesthetic Review: No Changes in Pt Med Stat, Meds/Allgs Chart Reviewed and Consent Obtained/Reviewed Patient Risk: Intermediate Procedure Risk: Intermediate Anesthetic Plan Anesthetic Plan: GA Disposition: Standard PACU
[2025-02-27] MEDS: Calcium + Vitamin D 250 MG TABLET 1000 MG PO (12:29)
[2025-02-27] MEDS: buPROPion HCl XL 300 MG TAB.ER.24H PO (12:29)
[2025-02-27] MEDS: Acetaminophen 325 MG TABLET 650 MG PO (12:30)
[2025-02-27] MEDS: Fluticasone Propionate Nasal 16 GM SPRAY 1 SPRAY NOSTRIL-B (12:31)
[2025-02-27] MEDS: LORazepam 0.5 MG TABLET PO (15:18)
--- NOTE | 2025-02-27 15:33 | HO.PSYCHPN ---
Subjective Subjective Date of Service: 02/27/25 Reason For Visit: MDD Interim History: no change in presentation. ECT #3 completed today. discussed caplyta plan, reinforced that this is Dr. De La Torre' plan. per staff, +dep/anx. slept 7 hours. anxious re ECT. Mental Status Exam Mental Status Exam Narrative: well dressed and kempt. no PMA/PMR. cooperative. speech decr amount, nml rate, soft, incr latency. thoughts linear and logical. affect constricted, normo-intense, non-labile. mood anxious. no SI/SIBI/HI/AVH expressed. Diagnostics Vital Signs (24Hr): Vital Signs - 24 hr 02/26/25 20:00 02/27/25 07:30 02/27/25 08:20 Temperature 98.2 F 98.0 F Pulse Rate 58 60 Respiratory Rate 16 12 Blood Pressure 117/69 121/65 121/65 Pulse Oximetry 98 97 Oxygen Delivery Method Room Air Room Air Oxygen Flow Rate 02/27/25 09:51 02/27/25 11:15 02/27/25 11:20 Temperature 97.3 F 98.3 F Pulse Rate 64 65 78 Respiratory Rate 18 16 10 L Blood Pressure 142/77 H 169/97 H 149/85 H Pulse Oximetry 97 96 98 Oxygen Delivery Method Room Air Nasal Cannula with ETCO2 Nasal Cannula with ETCO2 Oxygen Flow Rate 2 2 02/27/25 11:25 02/27/25 11:30 02/27/25 11:45 Temperature 98.3 F Pulse Rate 77 76 67 Respiratory Rate 10 L 13 14 Blood Pressure 142/76 H 137/81 128/74 Pulse Oximetry 98 98 98 Oxygen Delivery Method Nasal Cannula with ETCO2 Nasal Cannula with ETCO2 Room Air Oxygen Flow Rate 2 2 02/27/25 12:02 02/27/25 13:02 Temperature 97.8 F Pulse Rate 64 Respiratory Rate 17 Blood Pressure 175/85 H 106/63 Pulse Oximetry 97 Oxygen Delivery Method Room Air Oxygen Flow Rate BMI result Body Mass Index 26.2 Labs 02/20/25 08:09 Medications Medications Current Medications Acetaminophen (Acetaminophen 325 Mg Tablet) 650 mg PO Q6H PRN PRN Reason: Headache/Pain, Scale 1-10 Last Admin: 02/27/25 12:30 Dose: 650 mg Al Hydroxide/Mg Hydroxide (Magnesium Hydrox/Alum Hydrox 30 Ml Oral.Susp) 30 ml PO Q6H PRN PRN Reason: Heartburn/Nausea Amlodipine Besylate (Amlodipine Besylate 2.5 Mg Tablet) 2.5 mg PO DAILY [facility]; Protocol Last Admin: 02/27/25 08:20 Dose: 2.5 mg Bupropion HCl (Bupropion Hcl Xl 300 Mg Tab.Er.24h) 300 mg PO DAILY [facility] Last Admin: 02/27/25 12:29 Dose: 300 mg Calcium Carbonate/Cholecalciferol (Calcium + Vitamin D 250 Mg Tablet) 1,000 mg PO DAILY [facility] Last Admin: 02/27/25 12:29 Dose: 1,000 mg Fluticasone Propionate (Fluticasone Propionate Nasal 16 Gm [place]) 1 spray NOSTRIL-B DAILY [facility] Last Admin: 02/27/25 12:31 Dose: 1 spray Hydroxyzine HCl (Hydroxyzine Hcl 25 Mg Tablet) 25 mg PO Q6H PRN PRN Reason: mild anxiety Last Admin: 02/25/25 20:13 Dose: 25 mg Levothyroxine Sodium (Levothyroxine Sodium 50 Mcg Tablet) 50 mcg PO DAILY@0600 [facility] Last Admin: 02/27/25 08:20 Dose: 50 mcg [place] Carbonate ([place] Carbonate 300 Mg Capsule) 600 mg PO BEDTIME [facility] Last Admin: 02/25/25 20:13 Dose: 600 mg Lorazepam (Lorazepam 0.5 Mg Tablet) 0.5 mg PO Q4H PRN PRN Reason: severe anxiety Last Admin: 02/27/25 15:18 Dose: 0.5 mg Magnesium Hydroxide (Milk Of Magnesia 30 Ml Oral.Susp) 30 ml PO DAILY PRN PRN Reason: Constipation Last Admin: 02/20/25 09:00 Dose: 30 ml Polyethylene Glycol (Polyethylene Glycol 3350 17 Gm Powd.Pack) 17 gm PO DAILY PRN PRN Reason: Constipation Senna (Sennosides 8.6 Mg Tablet) 17.2 mg PO BEDTIME PRN PRN Reason: Constipation Last Admin: 02/21/25 20:56 Dose: 17.2 mg Allergies Allergies Allergy/AdvReac Type Severity Reaction Status Date / Time lamotrigine Allergy Rash Verified 02/19/25 14:55 Assessment & Plan Assessment & Plan (1) Hypothyroidism: Status: Acute Code(s): E03.9 - Hypothyroidism, unspecified (2) Major depressive disorder with current active episode: Qualifiers: Major depression recurrence: unspecified whether recurrent Major depression episode severity: unspecified Qualified Code(s): F32.9 - Major depressive disorder, single episode, unspecified Status: Acute Code(s): F32.9 - Major depressive disorder, single episode, unspecified (3) HTN (hypertension): Status: Acute Code(s): I10 - Essential (primary) hypertension (4) Sleep apnea: Status: Acute Code(s): G47.30 - Sleep apnea, unspecified Plan continue home meds. hold new [place]anax from [place] inpatient as well as home est. EKG, hospitalist consult for ECT risk stratification. ECT sunday. 02/21: uncertainty around controlled substance prescriptions/regimen. As per [place] [facility] through [place] pharmacy: Eszopiclone 1 Mg Tablet, ativan 0.5mg bid January 2025 and prev xanax fpc until December 2024. Pt is not on stimulant regimen and reports not having a history of ADD or ADHD and Agreeable to discontinuing order stimulant. Will order Ambien as Eszopiclone not available 02/22: Unclear if ECT is scheduled for Sunday. No pre-ECT orders written. Will hold ambien and ativan for now and keep NPO in the morning in case she is scheduled. 02/23: no anesthesiologists available for ECT. case D/W [place]'s outpt at the [place], Elza De La Torre MD. dandre was considering augmentation with brexulti, caplyta, or pramipexole. reported akathisia with abilify at high dose, but it was effective until then. 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 ECT scheduled for tomorrow afternoon at 1300. 02/24: ECT #1 completed today. ECT #2 scheduled for tomorrow morning. no change in presentation, continue current mgmt. 02/25: ECT #2 completed without jaw pain or DIOP after. continues to feel anxious and depressed. change wellbutrin SR 100 BID to XL 300 daily. start caplyta 42 mg daily when available from [facility] [place]. 02/26: attempting to get [place] approval of caplyta. ECT #3 tomorrow. anxious. no other notable events or behaviors. 02/27: ECT#3 completed without complication. [facility]. 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 otherwise continue current mgmt. pt informed next ECT will be next . Reason for continued inpatient stay Substantial Risk for: harm to self and inability to function Time Spent With Patient Time: Total time managing care of this patient today __25__ minutes.
[2025-02-27] MEDS: Lithium Carbonate 300 MG CAPSULE 600 MG PO (21:13)
[2025-02-28] MEDS: Levothyroxine Sodium 50 MCG TABLET PO (06:35)
[2025-02-28 08:00] VITALS: BP 115/66; PULSE 58; RESP 16; TEMP 36.9; O2SAT 94
[2025-02-28] MEDS: amLODIPine Besylate 2.5 MG TABLET PO (08:14)
[2025-02-28] MEDS: Calcium + Vitamin D 250 MG TABLET 1000 MG PO (08:14)
[2025-02-28] MEDS: buPROPion HCl XL 300 MG TAB.ER.24H PO (08:14)
[2025-02-28] MEDS: Fluticasone Propionate Nasal 16 GM SPRAY 1 SPRAY NOSTRIL-B (08:16)
[2025-02-28] MEDS: Sennosides 8.6 MG TABLET 17.2 MG PO (08:41)
--- NOTE | 2025-02-28 13:09 | P.PNPSI_ITS ---
Subjective Subjective Date of Service: 02/28/25 Reason For Visit: MDD Subjective Notes: Conditional Voluntary Interim History: Active on unit, social with peers. attending groups. Patient reports feeling pretty well today; she reports decreased anxiety, however states she always has depression . denies SI/HI/VH/AH. per nursing, slept 8 hours last night. Continue current tx plan. Medication Compliance: Yes Side effects from medications: No Attending Groups: Yes Mental Status Exam Mental Status Exam Patient Appearance: Well Grooomed Patient Orientation: Person, Place, Time and Situation Level of Consciousness: Awake and Alert Patient Behavior: Appropriate and Cooperative Mood Description: Depressed Affect Description: Calm Ability to Follow Directions: Good Speech Pattern: Clear Memory Description: Intact Hallucinations: None Delusions: Not Present Thought Process: Intact Thought Content: positive for Intact Diagnostics Vital Signs (24Hr): Vital Signs - 24 hr 02/27/25 19:44 02/28/25 08:00 Temperature 98.5 F 98.4 F Pulse Rate 65 58 Respiratory Rate 16 Blood Pressure 125/64 115/66 Pulse Oximetry 98 94 Oxygen Delivery Method Room Air Room Air BMI result Body Mass Index 26.2 Labs 02/20/25 08:09 Medications Medications Current Medications Acetaminophen (Acetaminophen 325 Mg Tablet) 650 mg PO Q6H PRN PRN Reason: Headache/Pain, Scale 1-10 Last Admin: 02/27/25 12:30 Dose: 650 mg Al Hydroxide/Mg Hydroxide (Magnesium Hydrox/Alum Hydrox 30 Ml Oral.Susp) 30 ml PO Q6H PRN PRN Reason: Heartburn/Nausea Amlodipine Besylate (Amlodipine Besylate 2.5 Mg Tablet) 2.5 mg PO DAILY [facility]; Protocol Last Admin: 02/28/25 08:14 Dose: 2.5 mg Bupropion HCl (Bupropion Hcl Xl 300 Mg Tab.Er.24h) 300 mg PO DAILY [facility] Last Admin: 02/28/25 08:14 Dose: 300 mg Calcium Carbonate/Cholecalciferol (Calcium + Vitamin D 250 Mg Tablet) 1,000 mg PO DAILY [facility] Last Admin: 02/28/25 08:14 Dose: 1,000 mg Fluticasone Propionate (Fluticasone Propionate Nasal 16 Gm [place]) 1 spray NOSTRIL-B DAILY [facility] Last Admin: 02/28/25 08:16 Dose: 1 spray Hydroxyzine HCl (Hydroxyzine Hcl 25 Mg Tablet) 25 mg PO Q6H PRN PRN Reason: mild anxiety Last Admin: 02/25/25 20:13 Dose: 25 mg Levothyroxine Sodium (Levothyroxine Sodium 50 Mcg Tablet) 50 mcg PO DAILY@0600 [facility] Last Admin: 02/28/25 06:35 Dose: 50 mcg [place] Carbonate ([place] Carbonate 300 Mg Capsule) 600 mg PO BEDTIME DEEPA Last Admin: 02/27/25 21:13 Dose: 600 mg Lorazepam (Lorazepam 0.5 Mg Tablet) 0.5 mg PO Q4H PRN PRN Reason: severe anxiety Last Admin: 02/27/25 15:18 Dose: 0.5 mg Magnesium Hydroxide (Milk Of Magnesia 30 Ml Oral.Susp) 30 ml PO DAILY PRN PRN Reason: Constipation Last Admin: 02/20/25 09:00 Dose: 30 ml Polyethylene Glycol (Polyethylene Glycol 3350 17 Gm Powd.Pack) 17 gm PO DAILY PRN PRN Reason: Constipation Senna (Sennosides 8.6 Mg Tablet) 17.2 mg PO BEDTIME PRN PRN Reason: Constipation Last Admin: 02/28/25 08:41 Dose: 17.2 mg Allergies Allergies Allergy/AdvReac Type Severity Reaction Status Date / Time lamotrigine Allergy Rash Verified 02/19/25 14:55 Assessment & Plan Assessment & Plan (1) Hypothyroidism: Status: Acute Code(s): E03.9 - Hypothyroidism, unspecified (2) Major depressive disorder with current active episode: Qualifiers: Major depression recurrence: unspecified whether recurrent Major depression episode severity: unspecified Qualified Code(s): F32.9 - Major depressive disorder, single episode, unspecified Status: Acute Code(s): F32.9 - Major depressive disorder, single episode, unspecified (3) HTN (hypertension): Status: Acute Code(s): I10 - Essential (primary) hypertension (4) Sleep apnea: Status: Acute Code(s): G47.30 - Sleep apnea, unspecified Plan continue home meds. hold new xanax from [facility] inpatient as well as home . EKG, hospitalist consult for ECT risk stratification. ECT sunday. 02/21: uncertainty around controlled substance prescriptions/regimen. 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 Pt is not on stimulant regimen and reports not having a history of ADD or ADHD and Agreeable to discontinuing order stimulant. Will order Ambien as Eszopiclone not available 02/22: Unclear if ECT is scheduled for Sunday. No pre-ECT orders written. Will hold ambien and ativan for now and keep NPO in the morning in case she is scheduled. 02/23: no anesthesiologists available for ECT. case D/W pt's outpt MD at the [facility], Elza De La Torre MD. dandre was considering augmentation with brexulti, caplyta, or pramipexole. reported akathisia with abilify at high dose, but it was effective until then. 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 ECT scheduled for tomorrow afternoon at 1300. 02/24: ECT #1 completed today. ECT #2 scheduled for tomorrow morning. no change in presentation, continue current mgmt. 02/25: ECT #2 completed without jaw pain or DIOP after. continues to feel anxious and depressed. change wellbutrin SR 100 BID to XL 300 daily. start caplyta 42 mg daily when available from [facility]. 02/26: attempting to get [place] approval of caplyta. ECT #3 tomorrow. anxious. no other notable events or behaviors. 02/27: ECT#3 completed without complication. [facility] prescriber sent Rx for caplyta to [facility] pharmacy. pt's may chart picker medication when it is filled and bring in to hospital to start at [facility]. otherwise continue current mgmt. pt informed next ECT will be next . 02/28: Active on unit, social with peers. attending groups. Patient reports feeling pretty well today; she reports decreased anxiety, however states she always has depression . denies SI/HI/VH/AH. per nursing, slept 8 hours last night. Continue current tx plan Patient educated on: diagnosis and medication risk/benefits Reason for continued inpatient stay Substantial Risk for: med/psych decompensation Time Spent With Patient Time: Total time managing care of this patient today _20___ minutes.
[2025-02-28 20:00] VITALS: BP 135/65; PULSE 60; RESP 16; TEMP 36.5; O2SAT 98
[2025-02-28] MEDS: Lithium Carbonate 300 MG CAPSULE 600 MG PO (21:34)
[2025-03-01] MEDS: Levothyroxine Sodium 50 MCG TABLET PO (06:11)
[2025-03-01 07:37] VITALS: BP 110/56; PULSE 60; RESP 16; TEMP 36.5; O2SAT 97
[2025-03-01] MEDS: Fluticasone Propionate Nasal 16 GM SPRAY 1 SPRAY NOSTRIL-B (08:09)
[2025-03-01] MEDS: buPROPion HCl XL 300 MG TAB.ER.24H PO (08:10)
[2025-03-01] MEDS: Calcium + Vitamin D 250 MG TABLET 1000 MG PO (08:10)
[2025-03-01] MEDS: amLODIPine Besylate 2.5 MG TABLET PO (08:10)
[2025-03-01] MEDS: Sennosides 8.6 MG TABLET 17.2 MG PO (08:17)
--- NOTE | 2025-03-01 09:19 | P.PNPSI_ITS ---
Subjective Subjective Date of Service: 03/01/25 Reason For Visit: MDD Interim History: Active on unit, attending groups. Patient reports feeling okay today; denies SI/HI/VH/AH. observing reading in the [place]. She reports sleeping well. Continue current tx plan. Medication Compliance: Yes Side effects from medications: No Attending Groups: Yes Mental Status Exam Mental Status Exam Patient Appearance: Well Grooomed Patient Orientation: Person, Place, Time and Situation Level of Consciousness: Awake and Alert Patient Behavior: Appropriate and Cooperative Mood Description: Depressed Affect Description: Calm Ability to Follow Directions: Good Speech Pattern: Clear Memory Description: Intact Diagnostics Vital Signs (24Hr): Vital Signs - 24 hr 02/28/25 20:00 03/01/25 07:37 Temperature 97.7 F 97.7 F Pulse Rate 60 60 Respiratory Rate 16 16 Blood Pressure 135/65 110/56 L Pulse Oximetry 98 97 Oxygen Delivery Method Room Air Room Air BMI result Body Mass Index 26.2 Labs 02/20/25 08:09 Medications Medications Current Medications Acetaminophen (Acetaminophen 325 Mg Tablet) 650 mg PO Q6H PRN PRN Reason: Headache/Pain, Scale 1-10 Last Admin: 02/27/25 12:30 Dose: 650 mg Al Hydroxide/Mg Hydroxide (Magnesium Hydrox/Alum Hydrox 30 Ml Oral.Susp) 30 ml PO Q6H PRN PRN Reason: Heartburn/Nausea Amlodipine Besylate (Amlodipine Besylate 2.5 Mg Tablet) 2.5 mg PO DAILY [facility]; Protocol Last Admin: 03/01/25 08:10 Dose: 2.5 mg Bupropion HCl (Bupropion Hcl Xl 300 Mg Tab.Er.24h) 300 mg PO DAILY [facility] Last Admin: 03/01/25 08:10 Dose: 300 mg Calcium Carbonate/Cholecalciferol (Calcium + Vitamin D 250 Mg Tablet) 1,000 mg PO DAILY [facility] Last Admin: 03/01/25 08:10 Dose: 1,000 mg Fluticasone Propionate (Fluticasone Propionate Nasal 16 Gm [place]) 1 spray NOSTRIL-B DAILY [facility] Last Admin: 03/01/25 08:09 Dose: 1 spray Hydroxyzine HCl (Hydroxyzine Hcl 25 Mg Tablet) 25 mg PO Q6H PRN PRN Reason: mild anxiety Last Admin: 02/25/25 20:13 Dose: 25 mg Levothyroxine Sodium (Levothyroxine Sodium 50 Mcg Tablet) 50 mcg PO DAILY@0600 [facility] Last Admin: 03/01/25 06:11 Dose: 50 mcg [place] Carbonate ([place] Carbonate 300 Mg Capsule) 600 mg PO BEDTIME DEEPA Last Admin: 02/28/25 21:34 Dose: 600 mg Lorazepam (Lorazepam 0.5 Mg Tablet) 0.5 mg PO Q4H PRN PRN Reason: severe anxiety Last Admin: 02/27/25 15:18 Dose: 0.5 mg Magnesium Hydroxide (Milk Of Magnesia 30 Ml Oral.Susp) 30 ml PO DAILY PRN PRN Reason: Constipation Last Admin: 02/20/25 09:00 Dose: 30 ml Polyethylene Glycol (Polyethylene Glycol 3350 17 Gm Powd.Pack) 17 gm PO DAILY PRN PRN Reason: Constipation Senna (Sennosides 8.6 Mg Tablet) 17.2 mg PO BEDTIME PRN PRN Reason: Constipation Last Admin: 03/01/25 08:17 Dose: 17.2 mg Allergies Allergies Allergy/AdvReac Type Severity Reaction Status Date / Time lamotrigine Allergy Rash Verified 02/19/25 14:55 Assessment & Plan Assessment & Plan (1) Hypothyroidism: Status: Acute Code(s): E03.9 - Hypothyroidism, unspecified (2) Major depressive disorder with current active episode: Qualifiers: Major depression episode severity: unspecified Major depression recurrence: unspecified whether recurrent Qualified Code(s): F32.9 - Major depressive disorder, single episode, unspecified Status: Acute Code(s): F32.9 - Major depressive disorder, single episode, unspecified (3) HTN (hypertension): Status: Acute Code(s): I10 - Essential (primary) hypertension (4) Sleep apnea: Status: Acute Code(s): G47.30 - Sleep apnea, unspecified Plan continue home meds. hold new xanax from [facility] inpatient as well as home . EKG, hospitalist consult for ECT risk stratification. ECT sunday. 02/21: uncertainty around controlled substance prescriptions/regimen. 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 Pt is not on stimulant regimen and reports not having a history of ADD or ADHD and Agreeable to discontinuing order stimulant. Will order Ambien as Eszopiclone not available 02/22: Unclear if ECT is scheduled for Sunday. No pre-ECT orders written. Will hold ambien and ativan for now and keep NPO in the morning in case she is scheduled. 02/23: no anesthesiologists available for ECT. case D/W pt's outpt MD at the [facility], Elza De La Torre MD. dandre was considering augmentation with brexulti, caplyta, or pramipexole. reported akathisia with abilify at high dose, but it was effective until then. 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 ECT scheduled for tomorrow afternoon at 1300. 02/24: ECT #1 completed today. ECT #2 scheduled for tomorrow morning. no change in presentation, continue current mgmt. 02/25: ECT #2 completed without jaw pain or DIOP after. continues to feel anxious and depressed. change wellbutrin SR 100 BID to XL 300 daily. start caplyta 42 mg daily when available from [facility] pharmacy. 02/26: attempting to get [place] approval of caplyta. ECT #3 tomorrow. anxious. no other notable events or behaviors. 02/27: ECT#3 completed without complication. [place] prescriber sent Rx for caplyta to [facility] pharmacy. pt's may pickle cutter medication when it is filled and bring in to hospital to start at [facility]. otherwise continue current mgmt. pt informed next ECT will be next . 02/28: Active on unit, social with peers. attending groups. Patient reports feeling pretty well today; she reports decreased anxiety, however states she always has depression . denies SI/HI/VH/AH. per nursing, slept 8 hours last night. Continue current tx plan 03/01: Continue current tx plan. Patient educated on: diagnosis and medication risk/benefits Reason for continued inpatient stay Substantial Risk for: med/psych decompensation Time Spent With Patient Time: Total time managing care of this patient today _20___ minutes.
[2025-03-01 19:17] VITALS: BP 139/56; PULSE 66; RESP 16; TEMP 36.4; O2SAT 99
[2025-03-01] MEDS: Lithium Carbonate 300 MG CAPSULE 600 MG PO (20:37)
[2025-03-01] MEDS: hydrOXYzine HCL 25 MG TABLET PO (20:42)
[2025-03-02] MEDS: Levothyroxine Sodium 50 MCG TABLET PO (06:45)
[2025-03-02 07:49] VITALS: BP 130/60; PULSE 63; RESP 16; TEMP 37.7; O2SAT 97
[2025-03-02] MEDS: Sennosides 8.6 MG TABLET 17.2 MG PO (08:35)
[2025-03-02] MEDS: Fluticasone Propionate Nasal 16 GM SPRAY 1 SPRAY NOSTRIL-B (08:35)
[2025-03-02] MEDS: buPROPion HCl XL 300 MG TAB.ER.24H PO (08:36)
[2025-03-02] MEDS: Calcium + Vitamin D 250 MG TABLET 1000 MG PO (08:36)
[2025-03-02] MEDS: amLODIPine Besylate 2.5 MG TABLET PO (08:36)
--- NOTE | 2025-03-02 08:46 | P.PNPSI_ITS ---
Subjective Subjective Date of Service: 03/02/25 Reason For Visit: MDD Interim History: Keeping to self. in room, reading most of morning d/t unit noise. Patient reports feeling a little anxious and depressed today; denies SI/HI/VH/AH. per nursing, slept 8 hours. Continue current tx plan. Medication Compliance: Yes Side effects from medications: No Attending Groups: No Mental Status Exam Mental Status Exam Patient Appearance: Well Grooomed Patient Orientation: Person, Place, Time and Situation Level of Consciousness: Awake and Alert Patient Behavior: Appropriate and Cooperative Mood Description: Depressed and Anxious Affect Description: Calm Ability to Follow Directions: Good Speech Pattern: Clear Memory Description: Intact Hallucinations: None Delusions: Not Present Thought Process: Intact Thought Content: positive for Intact Diagnostics Vital Signs (24Hr): Vital Signs - 24 hr 03/01/25 19:17 03/02/25 07:49 Temperature 97.5 F 99.9 F Pulse Rate 66 63 Respiratory Rate 16 16 Blood Pressure 139/56 L 130/60 Pulse Oximetry 99 97 Oxygen Delivery Method Room Air Room Air BMI result Body Mass Index 26.2 Labs 02/20/25 08:09 Medications Medications Current Medications Acetaminophen (Acetaminophen 325 Mg Tablet) 650 mg PO Q6H PRN PRN Reason: Headache/Pain, Scale 1-10 Last Admin: 02/27/25 12:30 Dose: 650 mg Al Hydroxide/Mg Hydroxide (Magnesium Hydrox/Alum Hydrox 30 Ml Oral.Susp) 30 ml PO Q6H PRN PRN Reason: Heartburn/Nausea Amlodipine Besylate (Amlodipine Besylate 2.5 Mg Tablet) 2.5 mg PO DAILY [facility]; Protocol Last Admin: 03/02/25 08:36 Dose: 2.5 mg Bupropion HCl (Bupropion Hcl Xl 300 Mg Tab.Er.24h) 300 mg PO DAILY [facility] Last Admin: 03/02/25 08:36 Dose: 300 mg Calcium Carbonate/Cholecalciferol (Calcium + Vitamin D 250 Mg Tablet) 1,000 mg PO DAILY [facility] Last Admin: 03/02/25 08:36 Dose: 1,000 mg Fluticasone Propionate (Fluticasone Propionate Nasal 16 Gm [place]) 1 spray NOSTRIL-B DAILY [facility] Last Admin: 03/02/25 08:35 Dose: 1 spray Hydroxyzine HCl (Hydroxyzine Hcl 25 Mg Tablet) 25 mg PO Q6H PRN PRN Reason: mild anxiety Last Admin: 03/01/25 20:42 Dose: 25 mg Levothyroxine Sodium (Levothyroxine Sodium 50 Mcg Tablet) 50 mcg PO DAILY@0600 [facility] Last Admin: 03/02/25 06:45 Dose: 50 mcg [place] Carbonate ([place] Carbonate 300 Mg Capsule) 600 mg PO BEDTIME DEEPA Last Admin: 03/01/25 20:37 Dose: 600 mg Lorazepam (Lorazepam 0.5 Mg Tablet) 0.5 mg PO Q4H PRN PRN Reason: severe anxiety Last Admin: 02/27/25 15:18 Dose: 0.5 mg Magnesium Hydroxide (Milk Of Magnesia 30 Ml Oral.Susp) 30 ml PO DAILY PRN PRN Reason: Constipation Last Admin: 02/20/25 09:00 Dose: 30 ml Polyethylene Glycol (Polyethylene Glycol 3350 17 Gm Powd.Pack) 17 gm PO DAILY PRN PRN Reason: Constipation Senna (Sennosides 8.6 Mg Tablet) 17.2 mg PO BEDTIME PRN PRN Reason: Constipation Last Admin: 03/02/25 08:35 Dose: 17.2 mg Allergies Allergies Allergy/AdvReac Type Severity Reaction Status Date / Time lamotrigine Allergy Rash Verified 02/19/25 14:55 Assessment & Plan Assessment & Plan (1) Hypothyroidism: Status: Acute Code(s): E03.9 - Hypothyroidism, unspecified (2) Major depressive disorder with current active episode: Qualifiers: Major depression episode severity: unspecified Major depression recurrence: unspecified whether recurrent Qualified Code(s): F32.9 - Major depressive disorder, single episode, unspecified Status: Acute Code(s): F32.9 - Major depressive disorder, single episode, unspecified (3) HTN (hypertension): Status: Acute Code(s): I10 - Essential (primary) hypertension (4) Sleep apnea: Status: Acute Code(s): G47.30 - Sleep apnea, unspecified Plan continue home meds. hold new xanax from [facility] inpatient as well as home . EKG, hospitalist consult for ECT risk stratification. ECT sunday. 02/21: uncertainty around controlled substance prescriptions/regimen. As per [facility] through [facility] pharmacy: Eszopiclone 1 Mg Tablet, ativan 0.5mg bid January 2025 and prev xanax usp until December 2024. Pt is not on stimulant regimen and reports not having a history of ADD or ADHD and Agreeable to discontinuing order stimulant. Will order Ambien as Eszopiclone not available 02/22: Unclear if ECT is scheduled for Sunday. No pre-ECT orders written. Will hold ambien and ativan for now and keep NPO in the morning in case she is scheduled. 02/23: no anesthesiologists available for ECT. case D/W pt's outpt MD at the [facility], Elza De La Torre MD. dandre was considering augmentation with brexulti, caplyta, or pramipexole. reported akathisia with abilify at high dose, but it was effective until then. 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 ECT scheduled for tomorrow afternoon at 1300. 02/24: ECT #1 completed today. ECT #2 scheduled for tomorrow morning. no change in presentation, continue current mgmt. 02/25: ECT #2 completed without jaw pain or DIOP after. continues to feel anxious and depressed. change wellbutrin SR 100 BID to XL 300 daily. start caplyta 42 mg daily when available from [facility]. 02/26: attempting to get [place] approval of caplyta. ECT #3 tomorrow. anxious. no other notable events or behaviors. 02/27: ECT#3 completed without complication. [facility] prescriber sent Rx for caplyta to [facility] pharmacy. pt's may bulk picker medication when it is filled and bring in to hospital to start at [facility]. otherwise continue current mgmt. pt informed next ECT will be next . 02/28: Active on unit, social with peers. attending groups. Patient reports feeling pretty well today; she reports decreased anxiety, however states she always has depression . denies SI/HI/VH/AH. per nursing, slept 8 hours last night. Continue current tx plan 03/01: Continue current tx plan. 03/02: continue tx plan. Patient educated on: diagnosis, medication risk/benefits and therapeutic strategies Reason for continued inpatient stay Substantial Risk for: med/psych decompensation Time Spent With Patient Time: Total time managing care of this patient today _20___ minutes.
[2025-03-02 20:00] VITALS: BP 141/68; PULSE 62; RESP 16; TEMP 36.5; O2SAT 99
[2025-03-02] MEDS: Lithium Carbonate 300 MG CAPSULE 600 MG PO (20:38)
[2025-03-02] MEDS: hydrOXYzine HCL 25 MG TABLET PO (20:41)
[2025-03-03] MEDS: Levothyroxine Sodium 50 MCG TABLET PO (06:47)
[2025-03-03 07:55] VITALS: BP 136/60; PULSE 63; TEMP 36.8; O2SAT 99
[2025-03-03] MEDS: buPROPion HCl XL 300 MG TAB.ER.24H PO (08:21)
[2025-03-03] MEDS: Calcium + Vitamin D 250 MG TABLET 1000 MG PO (08:23)
[2025-03-03] MEDS: polyethylene glycoL 3350 17 GM POWD.PACK PO (08:24)
[2025-03-03] MEDS: amLODIPine Besylate 2.5 MG TABLET PO (08:24)
[2025-03-03] MEDS: Acetaminophen 325 MG TABLET 650 MG PO (11:42)
--- NOTE | 2025-03-03 15:27 | HO.PSYCHPN ---
Subjective Subjective Date of Service: 03/03/25 Reason For Visit: MDD Interim History: calm, cooperative. mood improved. uneventful weekend. denies any issues with sleeping, eating, toileting, getting along with others. per staff, ECT tomorrow. slept 7 hours. taking meds and meals. Mental Status Exam Mental Status Exam Narrative: well dressed and kempt. no PMA/PMR. cooperative. speech decr amount, nml rate, soft, nml latency. thoughts linear and logical. affect flexible, normo-intense, non-labile. mood anxious. no SI/SIBI/HI/AVH expressed. Diagnostics Vital Signs (24Hr): Vital Signs - 24 hr 03/02/25 20:00 03/03/25 07:55 Temperature 97.7 F 98.2 F Pulse Rate 62 63 Respiratory Rate 16 Blood Pressure 141/68 H 136/60 Pulse Oximetry 99 99 Oxygen Delivery Method Room Air Room Air BMI result Body Mass Index 26.2 Labs 02/20/25 08:09 Medications Medications Current Medications Acetaminophen (Acetaminophen 325 Mg Tablet) 650 mg PO Q6H PRN PRN Reason: Headache/Pain, Scale 1-10 Last Admin: 03/03/25 11:42 Dose: 650 mg Al Hydroxide/Mg Hydroxide (Magnesium Hydrox/Alum Hydrox 30 Ml Oral.Susp) 30 ml PO Q6H PRN PRN Reason: Heartburn/Nausea Amlodipine Besylate (Amlodipine Besylate 2.5 Mg Tablet) 2.5 mg PO DAILY [facility]; Protocol Last Admin: 03/03/25 08:24 Dose: 2.5 mg Bupropion HCl (Bupropion Hcl Xl 300 Mg Tab.Er.24h) 300 mg PO DAILY [facility] Last Admin: 03/03/25 08:21 Dose: 300 mg Calcium Carbonate/Cholecalciferol (Calcium + Vitamin D 250 Mg Tablet) 1,000 mg PO DAILY [facility] Last Admin: 03/03/25 08:23 Dose: 1,000 mg Fluticasone Propionate (Fluticasone Propionate Nasal 16 Gm [place]) 1 spray NOSTRIL-B DAILY [facility] Last Admin: 03/03/25 08:26 Dose: Not Given Hydroxyzine HCl (Hydroxyzine Hcl 25 Mg Tablet) 25 mg PO Q6H PRN PRN Reason: mild anxiety Last Admin: 03/02/25 20:41 Dose: 25 mg Levothyroxine Sodium (Levothyroxine Sodium 50 Mcg Tablet) 50 mcg PO DAILY@0600 [facility] Last Admin: 03/03/25 06:47 Dose: 50 mcg [place] Carbonate ([place] Carbonate 300 Mg Capsule) 600 mg PO BEDTIME [facility] Last Admin: 03/02/25 20:38 Dose: 600 mg Lorazepam (Lorazepam 0.5 Mg Tablet) 0.5 mg PO Q4H PRN PRN Reason: severe anxiety Last Admin: 02/27/25 15:18 Dose: 0.5 mg Magnesium Hydroxide (Milk Of Magnesia 30 Ml Oral.Susp) 30 ml PO DAILY PRN PRN Reason: Constipation Last Admin: 02/20/25 09:00 Dose: 30 ml Polyethylene Glycol (Polyethylene Glycol 3350 17 Gm Powd.Pack) 17 gm PO DAILY PRN PRN Reason: Constipation Last Admin: 03/03/25 08:24 Dose: 17 gm Senna (Sennosides 8.6 Mg Tablet) 17.2 mg PO BEDTIME PRN PRN Reason: Constipation Last Admin: 03/02/25 08:35 Dose: 17.2 mg Allergies Allergies Allergy/AdvReac Type Severity Reaction Status Date / Time lamotrigine Allergy Rash Verified 02/19/25 14:55 Assessment & Plan Assessment & Plan (1) Hypothyroidism: Status: Acute Code(s): E03.9 - Hypothyroidism, unspecified (2) Major depressive disorder with current active episode: Qualifiers: Major depression recurrence: unspecified whether recurrent Major depression episode severity: unspecified Qualified Code(s): F32.9 - Major depressive disorder, single episode, unspecified Status: Acute Code(s): F32.9 - Major depressive disorder, single episode, unspecified (3) HTN (hypertension): Status: Acute Code(s): I10 - Essential (primary) hypertension (4) Sleep apnea: Status: Acute Code(s): G47.30 - Sleep apnea, unspecified Plan continue home meds. hold new xanax from [facility] inpatient as well as home . EKG, hospitalist consult for ECT risk stratification. ECT sunday. 02/21: uncertainty around controlled substance prescriptions/regimen. 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 Pt is not on stimulant regimen and reports not having a history of ADD or ADHD and Agreeable to discontinuing order stimulant. Will order Ambien as Eszopiclone not available 02/22: Unclear if ECT is scheduled for Sunday. No pre-ECT orders written. Will hold ambien and ativan for now and keep NPO in the morning in case she is scheduled. 02/23: no anesthesiologists available for ECT. case D/W pt's outpt MD at the [facility], Elza De La Torre MD. dandre was considering augmentation with brexulti, caplyta, or pramipexole. reported akathisia with abilify at high dose, but it was effective until then. 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 ECT scheduled for tomorrow afternoon at 1300. 02/24: ECT #1 completed today. ECT #2 scheduled for tomorrow morning. no change in presentation, continue current mgmt. 02/25: ECT #2 completed without jaw pain or DIOP after. continues to feel anxious and depressed. change wellbutrin SR 100 BID to XL 300 daily. start caplyta 42 mg daily when available from [facility] pharmacy. 02/26: attempting to get [facility] approval of caplyta. ECT #3 tomorrow. anxious. no other notable events or behaviors. 02/27: ECT#3 completed without complication. [facility] prescriber sent Rx for caplyta to [facility] pharmacy. pt's may crab picker medication when it is filled and bring in to hospital to start at [facility]. otherwise continue current mgmt. pt informed next ECT will be next . 02/28: Active on unit, social with peers. attending groups. Patient reports feeling pretty well today; she reports decreased anxiety, however states she always has depression . denies SI/HI/VH/AH. per nursing, slept 8 hours last night. Continue current tx plan 03/01: Continue current tx plan. 03/02: continue tx plan. 03/03: ECT #4 tomorrow. stable, mood improved from admission. Reason for continued inpatient stay Substantial Risk for: harm to self and inability to function Time Spent With Patient Time: Total time managing care of this patient today __25__ minutes.
[2025-03-03 20:00] VITALS: BP 115/65; PULSE 67; RESP 16; TEMP 36.4; O2SAT 98
[2025-03-03] MEDS: hydrOXYzine HCL 25 MG TABLET PO (21:02)
[2025-03-04] VITALS (13 sets, daily range): BP systolic 110–164; BP diastolic 57–90; PULSE 62–83; RESP 12–16; TEMP 36.1–37.3; O2SAT 95–99
--- NOTE | 2025-03-04 07:54 | P.CONAN_ITS ---
[facility] Active Problems Active Problems: All Active Problems Generalized anxiety disorder (Acute) Seasonal allergies (Acute) Sleep apnea (Acute) Hypothyroidism (Acute) HTN (hypertension) (Acute) Osteopenia (Acute) Major depressive disorder with current active episode (Acute) Family History Family history of problems with anesthesia: No Surgical History History of Problems with Anesthesia: No Social History Social History Household Members: Significant Other and Children Housing: House Do you presently have visiting nurse or other home services: No Patient Tobacco Use Status: Never used Tobacco e-Cigarette/Vaping Use: Never Used Currently Displaying Signs/Symptoms of Drug Intoxication Withdrawal: No Have you been hit, kicked, punched, or otherwise hurt by someone within the past year? If so, by whom?: No Do you feel safe in your current relationship?: No Is there a partner from a previous relationship who is making you feel unsafe now?: No Are you made to feel afraid or neglected: No Advance Directives: No Advance Directives Information Provided: Yes Do you have thoughts of harming others: None Do you have a plan to hurt others: No Plan Recently lost weight without trying: No Eating poorly because of decreased appetite: No Nutrition Risks: No Nutritional Risk Patient : No : No Poor oral hygiene: No service: Yes Sexual orientation: Lesbian/Jones/Homosexual Meds Allergies Allergy/AdvReac Type Severity Reaction Status Date / Time lamotrigine Allergy Rash Verified 02/19/25 14:55 Active Medications: Current Medications Acetaminophen (Acetaminophen 325 Mg Tablet) 650 mg PO Q6H PRN PRN Reason: Headache/Pain, Scale 1-10 Last Admin: 03/03/25 11:42 Dose: 650 mg Al Hydroxide/Mg Hydroxide (Magnesium Hydrox/Alum Hydrox 30 Ml Oral.Susp) 30 ml PO Q6H PRN PRN Reason: Heartburn/Nausea Amlodipine Besylate (Amlodipine Besylate 2.5 Mg Tablet) 2.5 mg PO DAILY [facility]; Protocol Last Admin: 03/03/25 08:24 Dose: 2.5 mg Bupropion HCl (Bupropion Hcl Xl 300 Mg Tab.Er.24h) 300 mg PO DAILY [facility] Last Admin: 03/03/25 08:21 Dose: 300 mg Calcium Carbonate/Cholecalciferol (Calcium + Vitamin D 250 Mg Tablet) 1,000 mg PO DAILY [facility] Last Admin: 03/03/25 08:23 Dose: 1,000 mg Fluticasone Propionate (Fluticasone Propionate Nasal 16 Gm [place]) 1 spray NOSTRIL-B DAILY [facility] Last Admin: 03/03/25 08:26 Dose: Not Given Hydroxyzine HCl (Hydroxyzine Hcl 25 Mg Tablet) 25 mg PO Q6H PRN PRN Reason: mild anxiety Last Admin: 03/03/25 21:02 Dose: 25 mg Levothyroxine Sodium (Levothyroxine Sodium 50 Mcg Tablet) 50 mcg PO DAILY@0600 [facility] Last Admin: 03/03/25 06:47 Dose: 50 mcg [place] Carbonate ([place] Carbonate 300 Mg Capsule) 600 mg PO BEDTIME [facility] Last Admin: 03/02/25 20:38 Dose: 600 mg Lorazepam (Lorazepam 0.5 Mg Tablet) 0.5 mg PO Q4H PRN PRN Reason: severe anxiety Last Admin: 02/27/25 15:18 Dose: 0.5 mg Magnesium Hydroxide (Milk Of Magnesia 30 Ml Oral.Susp) 30 ml PO DAILY PRN PRN Reason: Constipation Last Admin: 02/20/25 09:00 Dose: 30 ml Polyethylene Glycol (Polyethylene Glycol 3350 17 Gm Powd.Pack) 17 gm PO DAILY PRN PRN Reason: Constipation Last Admin: 03/03/25 08:24 Dose: 17 gm Senna (Sennosides 8.6 Mg Tablet) 17.2 mg PO BEDTIME PRN PRN Reason: Constipation Last Admin: 03/02/25 08:35 Dose: 17.2 mg Home Medications ?Medication ?Instructions ?Recorded ?Confirmed ?Last Taken ?Type acetaminophen 650 mg tablet 650 mg PO Q6H PRN Pain (Scale 02/19/25 02/19/25 Unknown History Score 1-3) alprazolam 0.25 mg tablet 0.25 mg PO DAILY PRN Anxiety 02/19/25 02/19/25 Unknown History amlodipine 2.5 mg tablet 2.5 mg PO BID 02/19/25 02/19/25 02/19/25 History bupropion HCl 100 mg tablet,12 hr 100 mg PO BID 02/19/25 02/19/25 02/19/25 History sustained-release calcium 500 mg (as 2 tab PO DAILY 05/02/19/25 02/19/25 History carbonate)-vitamin D3 5 mcg (200 unit) tablet (Calcium 500 + D) cetirizine 10 mg tablet 10 mg PO DAILY 02/19/25 02/19/25 02/19/25 History dextroamphetamine sulfate 15 mg 15 mg PO BID 02/19/25 02/19/25 02/19/25 History capsule,extended release eszopiclone 1 mg tablet 1 mg PO BEDTIME 02/19/25 02/19/25 Unknown History fluticasone propionate 50 1 spray intranasal DAILY 02/19/25 02/19/25 Unknown History mcg/actuation nasal spray,suspension levothyroxine 50 mcg tablet 50 mcg PO DAILY 02/19/25 02/19/25 02/19/25 History lithium carbonate 600 mg capsule 600 mg PO BEDTIME 02/19/25 02/19/25 Unknown History polyethylene glycol 3350 17 gram 17 g PO DAILY PRN Constipation 02/19/25 02/19/25 Unknown History oral powder packet sennosides 8.6 mg tablet (senna) 8.6 mg PO BEDTIME PRN Constipation 02/19/25 02/19/25 Unknown History Exam Height,Weight and Vital Signs: Height 5 ft 5 in Weight 71.441 kg Last Vital Signs Temp 97 F 03/04/25 06:52 Pulse 63 03/04/25 06:52 Resp 12 03/04/25 06:52 BP 122/69 03/04/25 06:52 Pulse Ox 95 03/04/25 06:52 O2 Del Method Room Air 03/04/25 06:52 O2 Flow Rate 2 02/27/25 11:30 Pertinent Lab Results Pertinent Lab Results: Laboratory Tests 02/20/25 08:09 Sodium 141 Potassium 4.5 Chloride 111 H Carbon Dioxide 26 Anion Gap 9 L BUN 11 Creatinine 0.79 Estim Creat Clear Calc 67.9 Estimated GFR > 60 Random Glucose 86 Estimat Average Glucose 103 Hemoglobin A1c % 5.2 Calcium 9.6 Total Bilirubin 0.3 AST 22 ALT 23 Alkaline Phosphatase 64 Total Protein 6.0 L Albumin 3.7 Triglycerides 161 H Cholesterol 247 H LDL Cholesterol, Calc 157 H HDL Cholesterol 58 Airway Mallampati Class: II (caps lateral) TM Dist: >3cm Neck ROM: Full Heart: rrr Lungs: cta Assessment and Plan Assessment Anesthesia Assessment: Anesthesia Plan Discussed and Chart Reviewed Final Anesthetic Review Family History of Problems with Anesthesia: No History of Problems with Anesthesia: No NPO: Yes ASA Class: III Final Preanesthetic Review: No Changes in Pt Med Stat, Meds/Allgs Chart Reviewed and Consent Obtained/Reviewed Patient Risk: Intermediate Procedure Risk: Intermediate Anesthetic Plan Anesthetic Plan: GA Disposition: Standard PACU
--- NOTE | 2025-03-04 08:12 | MHC.SHP ---
Pre-Procedural Eval Section A - 24 Hr Update-Section A only Date of Service: 03/04/25 The patient is an INPATIENT: Yes Changes since office visit: Yes Patient answered all questions; No Cold of Flu in the past 2 weeks, No New Medical Problems and No Changes in Medication The patient has been examined within 24 hours of the surgical procedure. The History & Physical has been completed within 30 days and I have reviewed it.: Yes Section B - Complete if H&P > 30 days Chief Complaint: MDD Allergies: Allergies Allergy/AdvReac Type Severity Reaction Status Date / Time lamotrigine Allergy Rash Verified 02/19/25 14:55 Plan I have reviewed the history and physical and performed a pertinent physical examination on my patient. No changes have occurred unless specified. Time Spent With Patient Time: Total time managing care of this patient today ____ minutes.
--- NOTE | 2025-03-04 08:15 | HO.ECTPROC ---
ECT Procedure Note Diagnosis/Treatment Date of Service: 03/04/25 Diagnosis: Major Depressive Disorder Previous ECT Date: 02/27/25 Current Treatment Number: 4 Treatment: Series Interval Clinical Notes: Patient tolerating ect some muscle pain feeling better Time: Total time managing care of this patient today ____ minutes. ECT Settings Device: THYMATRON DGx Electrode Placement: Right Unilateral Program/Pulse Width: 0.50 Energy Percent: 100 Seizure Duration By EEG (in seconds): 24 Medications Administration General Anesthetic: Methohexital (80) Muscle Relaxant: Succinylcholine (90) Ancillary Medications Analgesics: Torodol - Pre ECT (15) Anti-emetics: Zofran - Pre ECT Miscillaneous Medications: Other (lidocaine pre) Airway Management Airway Management: Bag Mask Ventilation Treatment Recommendations Program/Pulse Width: 0.50 Notes: Consider bf if no improvement Pt Tolerated Procedure w/o Issue: Yes
[2025-03-04] MEDS: Calcium + Vitamin D 250 MG TABLET 1000 MG PO (10:19)
[2025-03-04] MEDS: Levothyroxine Sodium 50 MCG TABLET PO (10:19)
[2025-03-04] MEDS: LORazepam 0.5 MG TABLET PO (10:19)
[2025-03-04] MEDS: buPROPion HCl XL 300 MG TAB.ER.24H PO (10:20)
[2025-03-04] MEDS: amLODIPine Besylate 2.5 MG TABLET PO (10:20)
[2025-03-04] MEDS: Lactulose 20 GM/30 ML SOLUTION 30 GM PO (10:28)
--- NOTE | 2025-03-04 15:39 | HO.PSYCHPN ---
Subjective Subjective Date of Service: 03/04/25 Reason For Visit: MDD Interim History: sleepy after ECT. no change, no complaints or requests. per staff, c/o constipation, miralax ineffective. atarax for sleep. slept 6 hours. ECT this morning. Mental Status Exam Mental Status Exam Narrative: well dressed and kempt. no PMA/PMR. cooperative. speech decr amount, nml rate, soft, nml latency. thoughts linear and logical. affect flexible, normo-intense, non-labile. mood anxious. no SI/SIBI/HI/AVH expressed. Diagnostics Vital Signs (24Hr): Vital Signs - 24 hr 03/03/25 20:00 03/04/25 05:55 03/04/25 06:52 Temperature 97.5 F 97.5 F 97 F Pulse Rate 67 64 63 Respiratory Rate 16 14 12 Blood Pressure 115/65 139/71 122/69 Pulse Oximetry 98 99 95 Oxygen Delivery Method Room Air Room Air Oxygen Flow Rate 03/04/25 08:39 03/04/25 08:40 03/04/25 08:45 Temperature 99.2 F Pulse Rate 83 80 82 Respiratory Rate 16 16 16 Blood Pressure 164/85 H 153/86 H 144/90 H Pulse Oximetry 99 99 99 Oxygen Delivery Method Nasal Cannula Nasal Cannula Nasal Cannula Oxygen Flow Rate 2 2 2 03/04/25 08:50 03/04/25 09:00 03/04/25 09:15 Temperature Pulse Rate 75 71 65 Respiratory Rate 16 16 16 Blood Pressure 135/57 L 142/81 H 124/81 Pulse Oximetry 99 99 99 Oxygen Delivery Method Nasal Cannula Nasal Cannula Nasal Cannula Oxygen Flow Rate 2 2 2 03/04/25 09:25 03/04/25 09:39 03/04/25 10:14 Temperature 98 F 97.8 F Pulse Rate 63 64 62 Respiratory Rate 16 16 14 Blood Pressure 125/78 122/73 125/63 Pulse Oximetry 99 99 95 Oxygen Delivery Method Nasal Cannula Nasal Cannula Oxygen Flow Rate 2 2 03/04/25 10:15 Temperature 97.8 F Pulse Rate 62 Respiratory Rate 14 Blood Pressure 125/63 Pulse Oximetry 95 Oxygen Delivery Method Room Air Oxygen Flow Rate BMI result Body Mass Index 26.2 Labs 02/20/25 08:09 Medications Medications Current Medications Acetaminophen (Acetaminophen 325 Mg Tablet) 650 mg PO Q6H PRN PRN Reason: Headache/Pain, Scale 1-10 Last Admin: 03/03/25 11:42 Dose: 650 mg Al Hydroxide/Mg Hydroxide (Magnesium Hydrox/Alum Hydrox 30 Ml Oral.Susp) 30 ml PO Q6H PRN PRN Reason: Heartburn/Nausea Amlodipine Besylate (Amlodipine Besylate 2.5 Mg Tablet) 2.5 mg PO DAILY [facility]; Protocol Last Admin: 03/04/25 10:20 Dose: 2.5 mg Bupropion HCl (Bupropion Hcl Xl 300 Mg Tab.Er.24h) 300 mg PO DAILY [facility] Last Admin: 03/04/25 10:20 Dose: 300 mg Calcium Carbonate/Cholecalciferol (Calcium + Vitamin D 250 Mg Tablet) 1,000 mg PO DAILY [facility] Last Admin: 03/04/25 10:19 Dose: 1,000 mg Fluticasone Propionate (Fluticasone Propionate Nasal 16 Gm [place]) 1 spray NOSTRIL-B DAILY [facility] Last Admin: 03/04/25 10:25 Dose: Not Given Hydroxyzine HCl (Hydroxyzine Hcl 25 Mg Tablet) 25 mg PO Q6H PRN PRN Reason: mild anxiety Last Admin: 03/03/25 21:02 Dose: 25 mg Lactated Ringer's (Lr) 1,000 mls @ 50 mls/hr IVCONT .Q20H [facility] Levothyroxine Sodium (Levothyroxine Sodium 50 Mcg Tablet) 50 mcg PO DAILY@0600 [facility] Last Admin: 03/04/25 10:19 Dose: 50 mcg [place] Carbonate ([place] Carbonate 300 Mg Capsule) 600 mg PO BEDTIME [facility] Last Admin: 03/02/25 20:38 Dose: 600 mg Lorazepam (Lorazepam 0.5 Mg Tablet) 0.5 mg PO Q4H PRN PRN Reason: severe anxiety Last Admin: 03/04/25 10:19 Dose: 0.5 mg Magnesium Hydroxide (Milk Of Magnesia 30 Ml Oral.Susp) 30 ml PO DAILY PRN PRN Reason: Constipation Last Admin: 02/20/25 09:00 Dose: 30 ml Naloxone HCl (Naloxone Hcl 0.4 Mg/Ml Vial) 0.04 mg IVPUSH Q5M PRN PRN Reason: Excessive sedation or RR < 8 Polyethylene Glycol (Polyethylene Glycol 3350 17 Gm Powd.Pack) 17 gm PO DAILY PRN PRN Reason: Constipation Last Admin: 03/03/25 08:24 Dose: 17 gm Senna (Sennosides 8.6 Mg Tablet) 17.2 mg PO BEDTIME PRN PRN Reason: Constipation Last Admin: 03/02/25 08:35 Dose: 17.2 mg Allergies Allergies Allergy/AdvReac Type Severity Reaction Status Date / Time lamotrigine Allergy Rash Verified 02/19/25 14:55 Assessment & Plan Assessment & Plan (1) Hypothyroidism: Status: Acute Code(s): E03.9 - Hypothyroidism, unspecified (2) Major depressive disorder with current active episode: Qualifiers: Major depression recurrence: unspecified whether recurrent Major depression episode severity: unspecified Qualified Code(s): F32.9 - Major depressive disorder, single episode, unspecified Status: Acute Code(s): F32.9 - Major depressive disorder, single episode, unspecified (3) HTN (hypertension): Status: Acute Code(s): I10 - Essential (primary) hypertension (4) Sleep apnea: Status: Acute Code(s): G47.30 - Sleep apnea, unspecified Plan continue home meds. hold new [place]anax from [place] inpatient as well as home est. EKG, hospitalist consult for ECT risk stratification. ECT sunday. 02/21: uncertainty around controlled substance prescriptions/regimen. As per [facility] through [place] pharmacy: Eszopiclone 1 Mg Tablet, ativan 0.5mg bid January 2025 and prev xanax halfway until December 2024. Pt is not on stimulant regimen and reports not having a history of ADD or ADHD and Agreeable to discontinuing order stimulant. Will order Ambien as Eszopiclone not available 02/22: Unclear if ECT is scheduled for Sunday. No pre-ECT orders written. Will hold ambien and ativan for now and keep NPO in the morning in case she is scheduled. 02/23: no anesthesiologists available for ECT. case D/W pt's outpt at the [place], Elza De La Torre MD. dandre was considering augmentation with brexulti, caplyta, or pramipexole. reported akathisia with abilify at high dose, but it was effective until then. 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 ECT scheduled for tomorrow afternoon at 1300. 02/24: ECT #1 completed today. ECT #2 scheduled for tomorrow morning. no change in presentation, continue current mgmt. 02/25: ECT #2 completed without jaw pain or DIOP after. continues to feel anxious and depressed. change wellbutrin SR 100 BID to XL 300 daily. start caplyta 42 mg daily when available from [facility] pharmacy. 02/26: [facility] to get [facility] cap[facility]. ECT #3 tomorrow. anxious. no other notable events or behaviors. 02/27: ECT#3 completed without complication. [facility]. pt's may pick out hand medication when it is filled and bring in to hospital to start at [facility]. otherwise continue current mgmt. pt informed next ECT will be next . 02/28: Active on unit, social with peers. attending groups. Patient reports feeling pretty well today; she reports decreased anxiety, however states she always has depression . denies SI/HI/VH/AH. per nursing, slept 8 hours last night. Continue current tx plan 03/01: Continue current tx plan. 03/02: continue tx plan. 03/03: ECT #4 tomorrow. stable, mood improved from admission. 03/04: ECT completed without incident. stable. continue current mgmt. Reason for continued inpatient stay Substantial Risk for: harm to self and inability to function Time Spent With Patient Time: Total time managing care of this patient today __25__ minutes.
[2025-03-04] MEDS: Lithium Carbonate 300 MG CAPSULE 600 MG PO (21:08)
[2025-03-04] MEDS: hydrOXYzine HCL 25 MG TABLET PO (21:08)
[2025-03-05 07:00] VITALS: BMI 26.0
[2025-03-05] MEDS: Levothyroxine Sodium 50 MCG TABLET PO (07:04)
[2025-03-05 07:42] VITALS: BP 119/61; PULSE 59; RESP 14; TEMP 36.4; O2SAT 98
[2025-03-05] MEDS: Calcium + Vitamin D 250 MG TABLET 1000 MG PO (08:07)
[2025-03-05] MEDS: amLODIPine Besylate 2.5 MG TABLET PO (08:07)
[2025-03-05] MEDS: buPROPion HCl XL 300 MG TAB.ER.24H PO (08:07)
--- NOTE | 2025-03-05 13:51 | HO.PSYCHPN ---
Subjective Subjective Date of Service: 03/05/25 Reason For Visit: MDD Interim History: calm, cooperative. feeling improved, imagines sunday will be her final ECT, then discharge. not sure about discharge sunday or sunday and back to [place] inpatient versus straight home. per staff, broad affect. ECT helpful. taking meds. sores on insides of cheeks. slept 8 hours. asking for salt water to swish in mouth. Mental Status Exam Mental Status Exam Narrative: well dressed and kempt. no PMA/PMR. cooperative. speech decr amount, nml rate, soft, nml latency. thoughts linear and logical. affect flexible, normo-intense, non-labile. mood improved. no SI/SIBI/HI/AVH expressed. Diagnostics Vital Signs (24Hr): Vital Signs - 24 hr 03/04/25 19:54 03/05/25 07:42 Temperature 97.8 F 97.6 F Pulse Rate 64 59 Respiratory Rate 16 14 Blood Pressure 110/58 L 119/61 Pulse Oximetry 99 98 Oxygen Delivery Method Room Air Room Air BMI result Body Mass Index 26.2 Labs 02/20/25 08:09 Medications Medications Current Medications Acetaminophen (Acetaminophen 325 Mg Tablet) 650 mg PO Q6H PRN PRN Reason: Headache/Pain, Scale 1-10 Last Admin: 03/03/25 11:42 Dose: 650 mg Al Hydroxide/Mg Hydroxide (Magnesium Hydrox/Alum Hydrox 30 Ml Oral.Susp) 30 ml PO Q6H PRN PRN Reason: Heartburn/Nausea Amlodipine Besylate (Amlodipine Besylate 2.5 Mg Tablet) 2.5 mg PO DAILY [facility]; Protocol Last Admin: 03/05/25 08:07 Dose: 2.5 mg Bupropion HCl (Bupropion Hcl Xl 300 Mg Tab.Er.24h) 300 mg PO DAILY [facility] Last Admin: 03/05/25 08:07 Dose: 300 mg Calcium Carbonate/Cholecalciferol (Calcium + Vitamin D 250 Mg Tablet) 1,000 mg PO DAILY [facility] Last Admin: 03/05/25 08:07 Dose: 1,000 mg Fluticasone Propionate (Fluticasone Propionate Nasal [address] [place]) 1 spray NOSTRIL-B DAILY [facility] Last Admin: 03/05/25 08:09 Dose: Not Given Hydroxyzine HCl (Hydroxyzine Hcl 25 Mg Tablet) 25 mg PO Q6H PRN PRN Reason: mild anxiety Last Admin: 03/04/25 21:08 Dose: 25 mg Lactated Ringer's (Lr) 1,000 mls @ 50 mls/hr IVCONT .Q20H [facility] Levothyroxine Sodium (Levothyroxine Sodium 50 Mcg Tablet) 50 mcg PO DAILY@0600 [facility] Last Admin: 03/05/25 07:04 Dose: 50 mcg [place] Carbonate ([place] Carbonate 300 Mg Capsule) 600 mg PO BEDTIME [facility] Last Admin: 03/04/25 21:08 Dose: 600 mg Lorazepam (Lorazepam 0.5 Mg Tablet) 0.5 mg PO Q4H PRN PRN Reason: severe anxiety Last Admin: 03/04/25 10:19 Dose: 0.5 mg Magnesium Hydroxide (Milk Of Magnesia 30 Ml Oral.Susp) 30 ml PO DAILY PRN PRN Reason: Constipation Last Admin: 02/20/25 09:00 Dose: 30 ml Naloxone HCl (Naloxone Hcl 0.4 Mg/Ml Vial) 0.04 mg IVPUSH Q5M PRN PRN Reason: Excessive sedation or RR < 8 Polyethylene Glycol (Polyethylene Glycol 3350 17 Gm Powd.Pack) 17 gm PO DAILY PRN PRN Reason: Constipation Last Admin: 03/03/25 08:24 Dose: 17 gm Senna (Sennosides 8.6 Mg Tablet) 17.2 mg PO BEDTIME PRN PRN Reason: Constipation Last Admin: 03/02/25 08:35 Dose: 17.2 mg Allergies Allergies Allergy/AdvReac Type Severity Reaction Status Date / Time lamotrigine Allergy Rash Verified 02/19/25 14:55 Assessment & Plan Assessment & Plan (1) Hypothyroidism: Status: Acute Code(s): E03.9 - Hypothyroidism, unspecified (2) Major depressive disorder with current active episode: Qualifiers: Major depression recurrence: unspecified whether recurrent Major depression episode severity: unspecified Qualified Code(s): F32.9 - Major depressive disorder, single episode, unspecified Status: Acute Code(s): F32.9 - Major depressive disorder, single episode, unspecified (3) HTN (hypertension): Status: Acute Code(s): I10 - Essential (primary) hypertension (4) Sleep apnea: Status: Acute Code(s): G47.30 - Sleep apnea, unspecified Plan continue home meds. hold new xanax from [place] inpatient as well as home lunesta. EKG, hospitalist consult for ECT risk stratification. ECT sunday. 02/21: uncertainty around controlled substance prescriptions/regimen. As per [place] through [place] pharmacy: Eszopiclone 1 Mg Tablet, ativan 0.5mg bid January 2025 and prev xanax nursing home until December 2024. Pt is not on stimulant regimen and reports not having a history of ADD or ADHD and Agreeable to discontinuing order stimulant. Will order Ambien as Eszopiclone not available 02/22: Unclear if ECT is scheduled for Sunday. No pre-ECT orders written. Will hold ambien and ativan for now and keep NPO in the morning in case she is scheduled. 02/23: no anesthesiologists available for ECT. case D/W pt's outpt MD at the [place], Elza De La Torre MD. dandre was considering augmentation with brexulti, caplyta, or pramipexole. reported akathisia with abilify at high dose, but it was effective until then. 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 ECT scheduled for tomorrow afternoon at 1300. 02/24: ECT #1 completed today. ECT #2 scheduled for tomorrow morning. no change in presentation, continue current mgmt. 02/25: ECT #2 completed without jaw pain or DIOP after. continues to feel anxious and depressed. change wellbutrin SR 100 BID to XL 300 daily. start caplyta 42 mg daily when available from [facility] pharmacy. 02/26: attempting to get [place] approval of caplyta. ECT #3 tomorrow. anxious. no other notable events or behaviors. 02/27: ECT#3 completed without complication. [place] prescriber sent Rx for caplyta to [facility] pharmacy. pt's may mixing picker tender medication when it is filled and bring in to hospital to start at [facility]. otherwise continue current mgmt. pt informed next ECT will be next . 02/28: Active on unit, social with peers. attending groups. Patient reports feeling pretty well today; she reports decreased anxiety, however states she always has depression . denies SI/HI/VH/AH. per nursing, slept 8 hours last night. Continue current tx plan 03/01: Continue current tx plan. 03/02: continue tx plan. 03/03: ECT #4 tomorrow. stable, mood improved from admission. 03/04: ECT completed without incident. stable. continue current mgmt. 03/05: stably improved. planning for final ECT sunday. unsure to discharge home [facility]5 tomorrow. Reason for continued inpatient stay Substantial Risk for: harm to self, inability to function and rapid decompensation Time Spent With Patient Time: Total time managing care of this patient today _25___ minutes.
[2025-03-05] MEDS: Milk of Magnesia 30 ML ORAL.SUSP PO (14:39)
[2025-03-05 19:42] VITALS: BP 120/68; PULSE 66; RESP 16; TEMP 36.6; O2SAT 98
[2025-03-06] VITALS (11 sets, daily range): BP systolic 113–163; BP diastolic 58–90; PULSE 63–86; RESP 14–17; TEMP 36.4–36.9; O2SAT 96–99
[2025-03-06] MEDS: Lactated Ringers 1,000 ML 50 ML IVCONT (06:26)
--- NOTE | 2025-03-06 06:55 | P.CONAN_ITS ---
[facility] Active Problems Active Problems: All Active Problems Generalized anxiety disorder (Acute) Seasonal allergies (Acute) Sleep apnea (Acute) Hypothyroidism (Acute) HTN (hypertension) (Acute) Osteopenia (Acute) Major depressive disorder with current active episode (Acute) Family History Family history of problems with anesthesia: No Surgical History History of Problems with Anesthesia: No Social History Social History Household Members: Significant Other and Children Housing: House Do you presently have visiting nurse or other home services: No Patient Tobacco Use Status: Never used Tobacco e-Cigarette/Vaping Use: Never Used Currently Displaying Signs/Symptoms of Drug Intoxication Withdrawal: No Have you been hit, kicked, punched, or otherwise hurt by someone within the past year? If so, by whom?: No Do you feel safe in your current relationship?: No Is there a partner from a previous relationship who is making you feel unsafe now?: No Are you made to feel afraid or neglected: No Advance Directives: No Advance Directives Information Provided: Yes Do you have thoughts of harming others: None Do you have a plan to hurt others: No Plan Recently lost weight without trying: No Eating poorly because of decreased appetite: No Nutrition Risks: No Nutritional Risk Patient : No : No Poor oral hygiene: No service: Yes Sexual orientation: Lesbian/Jones/Homosexual Meds Allergies Allergy/AdvReac Type Severity Reaction Status Date / Time lamotrigine Allergy Rash Verified 02/19/25 14:55 Active Medications: Current Medications Acetaminophen (Acetaminophen 325 Mg Tablet) 650 mg PO Q6H PRN PRN Reason: Headache/Pain, Scale 1-10 Last Admin: 03/03/25 11:42 Dose: 650 mg Al Hydroxide/Mg Hydroxide (Magnesium Hydrox/Alum Hydrox 30 Ml Oral.Susp) 30 ml PO Q6H PRN PRN Reason: Heartburn/Nausea Amlodipine Besylate (Amlodipine Besylate 2.5 Mg Tablet) 2.5 mg PO DAILY [facility]; Protocol Last Admin: 03/05/25 08:07 Dose: 2.5 mg Bupropion HCl (Bupropion Hcl Xl 300 Mg Tab.Er.24h) 300 mg PO DAILY [facility] Last Admin: 03/05/25 08:07 Dose: 300 mg Calcium Carbonate/Cholecalciferol (Calcium + Vitamin D 250 Mg Tablet) 1,000 mg PO DAILY [facility] Last Admin: 03/05/25 08:07 Dose: 1,000 mg Fluticasone Propionate (Fluticasone Propionate Nasal 16 Gm [place]) 1 spray NOSTRIL-B DAILY [facility] Last Admin: 03/05/25 08:09 Dose: Not Given Hydroxyzine HCl (Hydroxyzine Hcl 25 Mg Tablet) 25 mg PO Q6H PRN PRN Reason: mild anxiety Last Admin: 03/04/25 21:08 Dose: 25 mg Lactated Ringer's (Lr) 1,000 mls @ 50 mls/hr IVCONT .Q20H [facility] Last Admin: 03/06/25 06:26 Dose: 50 mls/hr Lactated Ringer's (Lr) 1,000 mls @ 50 mls/hr IVCONT .Q20H [facility] Levothyroxine Sodium (Levothyroxine Sodium 50 Mcg Tablet) 50 mcg PO DAILY@0600 [facility] Last Admin: 03/05/25 07:04 Dose: 50 mcg [place] Carbonate ([place] Carbonate 300 Mg Capsule) 600 mg PO BEDTIME [facility] Last Admin: 03/05/25 20:19 Dose: Not Given Lorazepam (Lorazepam 0.5 Mg Tablet) 0.5 mg PO Q4H PRN PRN Reason: severe anxiety Last Admin: 03/04/25 10:19 Dose: 0.5 mg Magnesium Hydroxide (Milk Of Magnesia 30 Ml Oral.Susp) 30 ml PO DAILY PRN PRN Reason: Constipation Last Admin: 03/05/25 14:39 Dose: 30 ml Naloxone HCl (Naloxone Hcl 0.4 Mg/Ml Vial) 0.04 mg IVPUSH Q5M PRN PRN Reason: Excessive sedation or RR < 8 Naloxone HCl (Naloxone Hcl 0.4 Mg/Ml Vial) 0.04 mg IVPUSH Q5M PRN PRN Reason: Excessive sedation or RR < 8 Polyethylene Glycol (Polyethylene Glycol 3350 17 Gm Powd.Pack) 17 gm PO DAILY PRN PRN Reason: Constipation Last Admin: 03/03/25 08:24 Dose: 17 gm Senna (Sennosides 8.6 Mg Tablet) 17.2 mg PO BEDTIME PRN PRN Reason: Constipation Last Admin: 03/02/25 08:35 Dose: 17.2 mg Home Medications ?Medication ?Instructions ?Recorded ?Confirmed ?Last Taken ?Type acetaminophen 650 mg tablet 650 mg PO Q6H PRN Pain (Scale 02/19/25 02/19/25 Unknown History Score 1-3) alprazolam 0.25 mg tablet 0.25 mg PO DAILY PRN Anxiety 02/19/25 02/19/25 Unknown History amlodipine 2.5 mg tablet 2.5 mg PO BID 02/19/25 02/19/25 02/19/25 History bupropion HCl 100 mg tablet,12 hr 100 mg PO BID 02/19/25 02/19/25 02/19/25 History sustained-release calcium 500 mg (as 2 tab PO DAILY 02/19/25 02/19/25 02/19/25 History carbonate)-vitamin D3 5 mcg (200 unit) tablet (Calcium 500 + D) cetirizine 10 mg tablet 10 mg PO DAILY 02/19/25 02/19/25 02/19/25 History dextroamphetamine sulfate 15 mg 15 mg PO BID 02/19/25 02/19/25 02/19/25 History capsule,extended release eszopiclone 1 mg tablet 1 mg PO BEDTIME 02/19/25 02/19/25 Unknown History fluticasone propionate 50 1 spray intranasal DAILY 02/19/25 02/19/25 Unknown History mcg/actuation nasal spray,suspension levothyroxine 50 mcg tablet 50 mcg PO DAILY 02/19/25 02/19/25 02/19/25 History lithium carbonate 600 mg capsule 600 mg PO BEDTIME 02/19/25 02/19/25 Unknown History polyethylene glycol 3350 17 gram 17 g PO DAILY PRN Constipation 02/19/25 02/19/25 Unknown History oral powder packet sennosides 8.6 mg tablet (senna) 8.6 mg PO BEDTIME PRN Constipation 02/19/25 02/19/25 Unknown History Exam Height,Weight and Vital Signs: Height 5 ft 5 in Weight 70.942 kg Last Vital Signs Temp 97.6 F 03/06/25 06:24 Pulse 66 03/06/25 06:24 Resp 16 03/06/25 06:24 BP 126/87 03/06/25 06:24 Pulse Ox 98 03/06/25 06:24 O2 Del Method Room Air 03/06/25 06:24 O2 Flow Rate 2 03/04/25 09:39 Pertinent Lab Results Pertinent Lab Results: Laboratory Tests 02/20/25 08:09 Sodium 141 Potassium 4.5 Chloride 111 H Carbon Dioxide 26 Anion Gap 9 L BUN 11 Creatinine 0.79 Estim Creat Clear Calc 67.9 Estimated GFR > 60 Random Glucose 86 Estimat Average Glucose 103 Hemoglobin A1c % 5.2 Calcium 9.6 Total Bilirubin 0.3 AST 22 ALT 23 Alkaline Phosphatase 64 Total Protein 6.0 L Albumin 3.7 Triglycerides 161 H Cholesterol 247 H LDL Cholesterol, Calc 157 H HDL Cholesterol 58 Airway Mallampati Class: II TM Dist: >3cm Neck ROM: Full Heart: rrr Lungs: cta Assessment and Plan Assessment Anesthesia Assessment: Anesthesia Plan Discussed and Chart Reviewed Final Anesthetic Review Family History of Problems with Anesthesia: No History of Problems with Anesthesia: No NPO: Yes ASA Class: III Final Preanesthetic Review: No Changes in Pt Med Stat, Meds/Allgs Chart Reviewed and Consent Obtained/Reviewed Patient Risk: Intermediate Procedure Risk: Intermediate Anesthetic Plan Anesthetic Plan: GA Disposition: Standard PACU
--- NOTE | 2025-03-06 07:33 | MHC.SHP ---
Pre-Procedural Eval Section A - 24 Hr Update-Section A only Date of Service: 03/06/25 The patient is an INPATIENT: Yes Changes since office visit: Yes Patient answered all questions; No Cold of Flu in the past 2 weeks, No New Medical Problems and No Changes in Medication The patient has been examined within 24 hours of the surgical procedure. The History & Physical has been completed within 30 days and I have reviewed it.: Yes Section B - Complete if H&P > 30 days Chief Complaint: MDD Allergies: Allergies Allergy/AdvReac Type Severity Reaction Status Date / Time lamotrigine Allergy Rash Verified 02/19/25 14:55 Plan I have reviewed the history and physical and performed a pertinent physical examination on my patient. No changes have occurred unless specified. Time Spent With Patient Time: Total time managing care of this patient today __30__ minutes.
--- NOTE | 2025-03-06 08:34 | HO.ECTPROC ---
ECT Procedure Note Diagnosis/Treatment Date of Service: 03/06/25 Diagnosis: Major Depressive Disorder Previous ECT Date: 03/04/25 Current Treatment Number: 5 Treatment: Series Interval Clinical Notes: mood improved, planning for final ECT sunday. no medical complications or changes. Time: Total time managing care of this patient today __35__ minutes. ECT Settings Device: THYMATRON DGx Electrode Placement: Right Unilateral Program/Pulse Width: 0.50 Energy Percent: 100 Seizure Duration By EEG (in seconds): 14 Medications Administration General Anesthetic: Methohexital (80) Muscle Relaxant: Succinylcholine (90) Ancillary Medications Analgesics: Torodol - Pre ECT (15) Anti-emetics: Zofran - Pre ECT Miscillaneous Medications: Other (lidocaine) Airway Management Airway Management: Bag Mask Ventilation Treatment Recommendations No Changes Recommended: No change
[2025-03-06] MEDS: amLODIPine Besylate 2.5 MG TABLET PO (09:56)
[2025-03-06] MEDS: buPROPion HCl XL 300 MG TAB.ER.24H PO (09:57)
[2025-03-06] MEDS: Calcium + Vitamin D 250 MG TABLET 1000 MG PO (09:57)
[2025-03-06] MEDS: Levothyroxine Sodium 50 MCG TABLET PO (09:57)
--- NOTE | 2025-03-06 12:07 | HO.PSYCHPN ---
Subjective Subjective Date of Service: 03/06/25 Reason For Visit: MDD Interim History: sleepy after ECT. planning to discharge sunday back to [place] inpatient in [place], [place]. per staff, no issues. ECT. slept 8 hours. Mental Status Exam Mental Status Exam Narrative: well dressed and kempt. no PMA/PMR. cooperative. speech decr amount, nml rate, soft, nml latency. thoughts linear and logical. affect flexible, normo-intense, non-labile. mood improved. no SI/SIBI/HI/AVH expressed. Diagnostics Vital Signs (24Hr): Vital Signs - 24 hr 03/05/25 19:42 03/06/25 06:12 03/06/25 06:24 Temperature 97.8 F 98.2 F 97.6 F Pulse Rate 66 65 66 Respiratory Rate 16 14 16 Blood Pressure 120/68 148/79 H 126/87 Pulse Oximetry 98 98 98 Oxygen Delivery Method Room Air Room Air Oxygen Flow Rate 03/06/25 07:50 03/06/25 07:55 03/06/25 08:00 Temperature 97.7 F Pulse Rate 86 80 73 Respiratory Rate 16 14 14 Blood Pressure 163/86 H 160/83 H 152/73 H Pulse Oximetry 98 98 99 Oxygen Delivery Method Nasal Cannula Nasal Cannula Nasal Cannula Oxygen Flow Rate 2 2 2 03/06/25 08:05 03/06/25 08:10 03/06/25 08:20 Temperature 97.7 F Pulse Rate 72 68 65 Respiratory Rate 16 16 16 Blood Pressure 153/71 H 143/70 H 142/71 H Pulse Oximetry 98 96 99 Oxygen Delivery Method Room Air Room Air Room Air Oxygen Flow Rate 03/06/25 09:50 03/06/25 09:56 Temperature 98.4 F Pulse Rate 63 Respiratory Rate 17 Blood Pressure 133/90 H 133/90 H Pulse Oximetry 98 Oxygen Delivery Method Room Air Oxygen Flow Rate BMI result Body Mass Index 26.0 Labs 02/20/25 08:09 Medications Medications Current Medications Acetaminophen (Acetaminophen 325 Mg Tablet) 650 mg PO Q6H PRN PRN Reason: Headache/Pain, Scale 1-10 Last Admin: 03/03/25 11:42 Dose: 650 mg Al Hydroxide/Mg Hydroxide (Magnesium Hydrox/Alum Hydrox 30 Ml Oral.Susp) 30 ml PO Q6H PRN PRN Reason: Heartburn/Nausea Amlodipine Besylate (Amlodipine Besylate 2.5 Mg Tablet) 2.5 mg PO DAILY [facility]; Protocol Last Admin: 03/06/25 09:56 Dose: 2.5 mg Bupropion HCl (Bupropion Hcl Xl 300 Mg Tab.Er.24h) 300 mg PO DAILY [facility] Last Admin: 03/06/25 09:57 Dose: 300 mg Calcium Carbonate/Cholecalciferol (Calcium + Vitamin D 250 Mg Tablet) 1,000 mg PO DAILY [facility] Last Admin: 03/06/25 09:57 Dose: 1,000 mg Fluticasone Propionate (Fluticasone Propionate Nasal 16 Gm [place]) 1 spray NOSTRIL-B DAILY [facility] Last Admin: 03/06/25 09:59 Dose: Not Given Hydroxyzine HCl (Hydroxyzine Hcl 25 Mg Tablet) 25 mg PO Q6H PRN PRN Reason: mild anxiety Last Admin: 03/04/25 21:08 Dose: 25 mg Levothyroxine Sodium (Levothyroxine Sodium 50 Mcg Tablet) 50 mcg PO DAILY@0600 [facility] Last Admin: 03/06/25 09:57 Dose: 50 mcg [place] Carbonate ([place] Carbonate 300 Mg Capsule) 600 mg PO BEDTIME [facility] Last Admin: 03/05/25 20:19 Dose: Not Given Lorazepam (Lorazepam 0.5 Mg Tablet) 0.5 mg PO Q4H PRN PRN Reason: severe anxiety Last Admin: 03/04/25 10:19 Dose: 0.5 mg Magnesium Hydroxide (Milk Of Magnesia 30 Ml Oral.Susp) 30 ml PO DAILY PRN PRN Reason: Constipation Last Admin: 03/05/25 14:39 Dose: 30 ml Polyethylene Glycol (Polyethylene Glycol 3350 17 Gm Powd.Pack) 17 gm PO DAILY PRN PRN Reason: Constipation Last Admin: 03/03/25 08:24 Dose: 17 gm Senna (Sennosides 8.6 Mg Tablet) 17.2 mg PO BEDTIME PRN PRN Reason: Constipation Last Admin: 03/02/25 08:35 Dose: 17.2 mg Allergies Allergies Allergy/AdvReac Type Severity Reaction Status Date / Time lamotrigine Allergy Rash Verified 02/19/25 14:55 Assessment & Plan Assessment & Plan (1) Hypothyroidism: Status: Acute Code(s): E03.9 - Hypothyroidism, unspecified (2) Major depressive disorder with current active episode: Qualifiers: Major depression recurrence: unspecified whether recurrent Major depression episode severity: unspecified Qualified Code(s): F32.9 - Major depressive disorder, single episode, unspecified Status: Acute Code(s): F32.9 - Major depressive disorder, single episode, unspecified (3) HTN (hypertension): Status: Acute Code(s): I10 - Essential (primary) hypertension (4) Sleep apnea: Status: Acute Code(s): G47.30 - Sleep apnea, unspecified Plan continue home meds. hold new xanax from [place] inpatient as well as home esta. EKG, hospitalist consult for ECT risk stratification. ECT sunday. 02/21: uncertainty around controlled substance prescriptions/regimen. As per [place] [facility] through [place] pharmacy: Eszopiclone 1 Mg Tablet, ativan 0.5mg bid January 2025 and prev xanax intermediate frame tender until December 2024. Pt is not on stimulant regimen and reports not having a history of ADD or ADHD and Agreeable to discontinuing order stimulant. Will order Ambien as Eszopiclone not available 02/22: Unclear if ECT is scheduled for Sunday. No pre-ECT orders written. Will hold ambien and ativan for now and keep NPO in the morning in case she is scheduled. 02/23: no anesthesiologists available for ECT. case D/W pt's outpt at the [place], Elza De La Torre MD. dandre was considering augmentation with brexulti, caplyta, or pramipexole. reported akathisia with abilify at high dose, but it was effective until then. 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 ECT scheduled for tomorrow afternoon at 1300. 02/24: ECT #1 completed today. ECT #2 scheduled for tomorrow morning. no change in presentation, continue current mgmt. 02/25: ECT #2 completed without jaw pain or DIOP after. continues to feel anxious and depressed. change wellbutrin SR 100 BID to XL 300 daily. start caplyta 42 mg daily when available from [facility] pharmacy. 02/26: attempting to get [place] approval of caplyta. ECT #3 tomorrow. anxious. no other notable events or behaviors. 02/27: ECT#3 completed without complication. [facility] to [facility] pharmacy. pt's may picking supervisor medication when it is filled and bring in to hospital to start at [facility]. otherwise continue current mgmt. pt informed next ECT will be next . 02/28: Active on unit, social with peers. attending groups. Patient reports feeling pretty well today; she reports decreased anxiety, however states she always has depression . denies SI/HI/VH/AH. per nursing, slept 8 hours last night. Continue current tx plan 03/01: Continue current tx plan. 03/02: continue tx plan. 03/03: ECT #4 tomorrow. stable, mood improved from admission. 03/04: ECT completed without incident. stable. continue current mgmt. 03/05: stably improved. planning for final ECT sunday. unsure to discharge home versus back to [place] inpatient. ECT #5 tomorrow. 03/06: ECT #5 completed without incident. planning for #6 on sunday then DC sunday to [place] inpatient unit in [place], [place]. mood remains improved. continue current mgmt. Reason for continued inpatient stay Substantial Risk for: harm to self, inability to function and rapid decompensation Time Spent With Patient Time: Total time managing care of this patient today __25__ minutes.
[2025-03-06] MEDS: Lithium Carbonate 300 MG CAPSULE 600 MG PO (20:52)
[2025-03-06] MEDS: LORazepam 0.5 MG TABLET PO (20:53)
[2025-03-06] MEDS: hydrOXYzine HCL 25 MG TABLET PO (20:53)
[2025-03-07] MEDS: Levothyroxine Sodium 50 MCG TABLET PO (06:29)
[2025-03-07 07:10] VITALS: BP 123/62; PULSE 64; RESP 14; TEMP 36.9; O2SAT 93
[2025-03-07] MEDS: Fluticasone Propionate Nasal 16 GM SPRAY 1 SPRAY NOSTRIL-B (09:27)
[2025-03-07 09:28] VITALS: BP 120/75
[2025-03-07] MEDS: Calcium + Vitamin D 250 MG TABLET 1000 MG PO (09:28)
[2025-03-07] MEDS: amLODIPine Besylate 2.5 MG TABLET PO (09:28)
[2025-03-07] MEDS: buPROPion HCl XL 300 MG TAB.ER.24H PO (09:29)
--- NOTE | 2025-03-07 10:06 | HO.PSYCHPN ---
Subjective Subjective Date of Service: 03/07/25 Reason For Visit: MDD Subjective Notes: Conditional Voluntary Interim History: Pt slept through the night. She reports ECT has been helpful, reports her mood is more peppy. Pt denies SI/HI. No psychosis or delusional content noted or reported. Medication Compliance: Yes Review of Systems Review of Systems Unremarkable Yes all other systems are reviewed and are negative Mental Status Exam Mental Status Exam Narrative: In bed. Fair hygiene, in NAD. no PMA/PMR. cooperative. speech decr amount, nml rate, soft, nml latency. thoughts linear and logical. affect flexible, normo-intense, non-labile. mood improved. no SI/SIBI/HI/AVH expressed. Diagnostics Vital Signs (24Hr): Vital Signs - 24 hr 03/06/25 20:00 03/07/25 07:10 03/07/25 09:28 Temperature 98.2 F 98.5 F Pulse Rate 68 64 Respiratory Rate 16 14 Blood Pressure 113/58 L 123/62 120/75 Pulse Oximetry 97 93 Oxygen Delivery Method Room Air Room Air BMI result Body Mass Index 26.0 Labs 02/20/25 08:09 Medications Medications Current Medications Acetaminophen (Acetaminophen 325 Mg Tablet) 650 mg PO Q6H PRN PRN Reason: Headache/Pain, Scale 1-10 Last Admin: 03/03/25 11:42 Dose: 650 mg Al Hydroxide/Mg Hydroxide (Magnesium Hydrox/Alum Hydrox 30 Ml Oral.Susp) 30 ml PO Q6H PRN PRN Reason: Heartburn/Nausea Amlodipine Besylate (Amlodipine Besylate 2.5 Mg Tablet) 2.5 mg PO DAILY COUNTS INCLUDE 234 BEDS AT THE [facility]; Protocol Last Admin: 03/07/25 09:28 Dose: 2.5 mg Bupropion HCl (Bupropion Hcl Xl 300 Mg Tab.Er.24h) 300 mg PO DAILY COUNTS INCLUDE 234 BEDS AT THE [facility] Last Admin: 03/07/25 09:29 Dose: 300 mg Calcium Carbonate/Cholecalciferol (Calcium + Vitamin D 250 Mg Tablet) 1,000 mg PO DAILY COUNTS INCLUDE 234 BEDS AT THE [facility] Last Admin: 03/07/25 09:28 Dose: 1,000 mg Fluticasone Propionate (Fluticasone Propionate Nasal 16 Gm [place]) 1 spray NOSTRIL-B DAILY COUNTS INCLUDE 234 BEDS AT THE [facility] Last Admin: 03/07/25 09:27 Dose: 1 spray Hydroxyzine HCl (Hydroxyzine Hcl 25 Mg Tablet) 25 mg PO Q6H PRN PRN Reason: mild anxiety Last Admin: 03/06/25 20:53 Dose: 25 mg Levothyroxine Sodium (Levothyroxine Sodium 50 Mcg Tablet) 50 mcg PO DAILY@0600 DEEPA Last Admin: 03/07/25 06:29 Dose: 50 mcg [place] Carbonate ([place]ola Carbonate 300 Mg Capsule) 600 mg PO BEDTIME DEEPA Last Admin: 03/06/25 20:52 Dose: 600 mg Lorazepam (Lorazepam 0.5 Mg Tablet) 0.5 mg PO Q4H PRN PRN Reason: severe anxiety Last Admin: 03/06/25 20:53 Dose: 0.5 mg Magnesium Hydroxide (Milk Of Magnesia 30 Ml Oral.Susp) 30 ml PO DAILY PRN PRN Reason: Constipation Last Admin: 03/05/25 14:39 Dose: 30 ml Polyethylene Glycol (Polyethylene Glycol 3350 17 Gm Powd.Pack) 17 gm PO DAILY PRN PRN Reason: Constipation Last Admin: 03/03/25 08:24 Dose: 17 gm Senna (Sennosides 8.6 Mg Tablet) 17.2 mg PO BEDTIME PRN PRN Reason: Constipation Last Admin: 03/02/25 08:35 Dose: 17.2 mg Allergies Allergies Allergy/AdvReac Type Severity Reaction Status Date / Time lamotrigine Allergy Rash Verified 02/19/25 14:55 Assessment & Plan Assessment & Plan (1) Major depressive disorder with current active episode: Qualifiers: Major depression episode severity: unspecified Major depression recurrence: unspecified whether recurrent Qualified Code(s): F32.9 - Major depressive disorder, single episode, unspecified Status: Acute Code(s): F32.9 - Major depressive disorder, single episode, unspecified (2) Hypothyroidism: Status: Acute Code(s): E03.9 - Hypothyroidism, unspecified (3) HTN (hypertension): Status: Acute Code(s): I10 - Essential (primary) hypertension (4) Sleep apnea: Status: Acute Code(s): G47.30 - Sleep apnea, unspecified Plan continue home meds. hold new xanax from [place] inpatient as well as home . EKG, hospitalist consult for ECT risk stratification. ECT sunday. 02/21: uncertainty around controlled substance prescriptions/regimen. As per [place] [facility] through [place] pharmacy: Eszopiclone 1 Mg Tablet, ativan 0.5mg bid January 2025 and prev xanax correction until December 2024. Pt is not on stimulant regimen and reports not having a history of ADD or ADHD and Agreeable to discontinuing order stimulant. Will order Ambien as Eszopiclone not available 02/22: Unclear if ECT is scheduled for Sunday. No pre-ECT orders written. Will hold ambien and ativan for now and keep NPO in the morning in case she is scheduled. 02/23: no anesthesiologists available for ECT. case D/W pt's outpt MD at the [place], Elza De La Torre MD. dandre was considering augmentation with brexulti, caplyta, or pramipexole. reported akathisia with abilify at high dose, but it was effective until then. 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 ECT scheduled for tomorrow afternoon at 1300. 02/24: ECT #1 completed today. ECT #2 scheduled for tomorrow morning. no change in presentation, continue current mgmt. 02/25: ECT #2 completed without jaw pain or DIOP after. continues to feel anxious and depressed. change wellbutrin SR 100 BID to XL 300 daily. start caplyta 42 mg daily when available from [facility]. 02/26: attempting to get [place] approval of caplyta. ECT #3 tomorrow. anxious. no other notable events or behaviors. 02/27: ECT#3 completed without complication. [place] prescriber sent Rx for caplyta to [facility] pharmacy. pt's may peanut picker medication when it is filled and bring in to hospital to start at [facility]. otherwise continue current mgmt. pt informed next ECT will be next . 02/28: Active on unit, social with peers. attending groups. Patient reports feeling pretty well today; she reports decreased anxiety, however states she always has depression . denies SI/HI/VH/AH. per nursing, slept 8 hours last night. Continue current tx plan 03/01: Continue current tx plan. 03/02: continue tx plan. 03/03: ECT #4 tomorrow. stable, mood improved from admission. 03/04: ECT completed without incident. stable. continue current mgmt. 03/05: stably improved. planning for final ECT sunday. unsure to discharge home versus [facility] ECT #5 tomorrow. 03/06: ECT #5 completed without incident. planning for #6 on sunday then DC sunday to [place] inpatient unit in [place], [place]. mood remains improved. continue current mgmt. 03/07 continue tx. Reason for continued inpatient stay Substantial Risk for: inability to function Time Spent With Patient Time: Total time managing care of this patient today ____ minutes.
[2025-03-07 20:00] VITALS: BP 116/65; PULSE 65; RESP 16; TEMP 36.6; O2SAT 97
[2025-03-07] MEDS: LORazepam 0.5 MG TABLET PO (20:30)
[2025-03-07] MEDS: hydrOXYzine HCL 25 MG TABLET PO (20:30)
[2025-03-07] MEDS: Lithium Carbonate 300 MG CAPSULE 600 MG PO (20:30)
[2025-03-08] MEDS: Levothyroxine Sodium 50 MCG TABLET PO (06:23)
[2025-03-08 07:17] VITALS: BP 122/68; PULSE 66; TEMP 36.9; O2SAT 97
[2025-03-08] MEDS: Fluticasone Propionate Nasal 16 GM SPRAY 1 SPRAY NOSTRIL-B (08:42)
[2025-03-08] MEDS: Calcium + Vitamin D 250 MG TABLET 1000 MG PO (08:43)
[2025-03-08] MEDS: buPROPion HCl XL 300 MG TAB.ER.24H PO (08:43)
[2025-03-08 08:44] VITALS: BP 130/75
[2025-03-08] MEDS: amLODIPine Besylate 2.5 MG TABLET PO (08:44)
[2025-03-08] MEDS: hydrOXYzine HCL 25 MG TABLET PO (20:27)
[2025-03-08 20:28] VITALS: BP 125/64; PULSE 61; RESP 16; TEMP 37.1; O2SAT 96
--- NOTE | 2025-03-08 21:46 | HO.PSYCHPN ---
Subjective Subjective Date of Service: 03/08/25 Reason For Visit: MDD Subjective Notes: Conditional Voluntary Interim History: Pt slept through the night. Pt reports feeling much better, able to read and engage in other activities that she enjoys. She denies SI/HI. She reports good appetite. VS stable. Review of Systems Review of Systems Unremarkable Yes all other systems are reviewed and are negative Mental Status Exam Mental Status Exam Narrative: In bed. Fair hygiene, in NAD. no PMA/PMR. cooperative. speech decr amount, nml rate, soft, nml latency. thoughts linear and logical. affect flexible, normo-intense, non-labile. mood improved. no SI/SIBI/HI/AVH expressed. Diagnostics Vital Signs (24Hr): Vital Signs - 24 hr 03/08/25 07:17 03/08/25 08:44 03/08/25 20:28 Temperature 98.4 F 98.7 F Pulse Rate 66 61 Respiratory Rate 16 Blood Pressure 122/68 130/75 125/64 Pulse Oximetry 97 96 Oxygen Delivery Method Room Air Room Air BMI result Body Mass Index 26.0 Labs 02/20/25 08:09 Medications Medications Current Medications Acetaminophen (Acetaminophen 325 Mg Tablet) 650 mg PO Q6H PRN PRN Reason: Headache/Pain, Scale 1-10 Last Admin: 03/03/25 11:42 Dose: 650 mg Al Hydroxide/Mg Hydroxide (Magnesium Hydrox/Alum Hydrox 30 Ml Oral.Susp) 30 ml PO Q6H PRN PRN Reason: Heartburn/Nausea Amlodipine Besylate (Amlodipine Besylate 2.5 Mg Tablet) 2.5 mg PO DAILY [facility]; Protocol Last Admin: 03/08/25 08:44 Dose: 2.5 mg Bupropion HCl (Bupropion Hcl Xl 300 Mg Tab.Er.24h) 300 mg PO DAILY [facility] Last Admin: 03/08/25 08:43 Dose: 300 mg Calcium Carbonate/Cholecalciferol (Calcium + Vitamin D 250 Mg Tablet) 1,000 mg PO DAILY [facility] Last Admin: 03/08/25 08:43 Dose: 1,000 mg Fluticasone Propionate (Fluticasone Propionate Nasal 16 Gm [place]) 1 spray NOSTRIL-B DAILY [facility] Last Admin: 03/08/25 08:42 Dose: 1 spray Hydroxyzine HCl (Hydroxyzine Hcl 25 Mg Tablet) 25 mg PO Q6H PRN PRN Reason: mild anxiety Last Admin: 03/08/25 20:27 Dose: 25 mg Levothyroxine Sodium (Levothyroxine Sodium 50 Mcg Tablet) 50 mcg PO DAILY@0600 DEEPA Last Admin: 03/08/25 06:23 Dose: 50 mcg [place] Carbonate ([place] Carbonate 300 Mg Capsule) 600 mg PO BEDTIME DEEPA Last Admin: 03/08/25 20:03 Dose: Not Given Lorazepam (Lorazepam 0.5 Mg Tablet) 0.5 mg PO Q4H PRN PRN Reason: severe anxiety Last Admin: 03/07/25 20:30 Dose: 0.5 mg Magnesium Hydroxide (Milk Of Magnesia 30 Ml Oral.Susp) 30 ml PO DAILY PRN PRN Reason: Constipation Last Admin: 03/05/25 14:39 Dose: 30 ml Polyethylene Glycol (Polyethylene Glycol 3350 17 Gm Powd.Pack) 17 gm PO DAILY PRN PRN Reason: Constipation Last Admin: 03/03/25 08:24 Dose: 17 gm Senna (Sennosides 8.6 Mg Tablet) 17.2 mg PO BEDTIME PRN PRN Reason: Constipation Last Admin: 03/02/25 08:35 Dose: 17.2 mg Allergies Allergies Allergy/AdvReac Type Severity Reaction Status Date / Time lamotrigine Allergy Rash Verified 02/19/25 14:55 Assessment & Plan Assessment & Plan (1) Major depressive disorder with current active episode: Qualifiers: Major depression episode severity: unspecified Major depression recurrence: unspecified whether recurrent Qualified Code(s): F32.9 - Major depressive disorder, single episode, unspecified Status: Acute Code(s): F32.9 - Major depressive disorder, single episode, unspecified (2) Hypothyroidism: Status: Acute Code(s): E03.9 - Hypothyroidism, unspecified (3) HTN (hypertension): Status: Acute Code(s): I10 - Essential (primary) hypertension (4) Sleep apnea: Status: Acute Code(s): G47.30 - Sleep apnea, unspecified Plan continue home meds. hold new xanax from [place] inpatient as well as home . EKG, hospitalist consult for ECT risk stratification. ECT sunday. 02/21: uncertainty around controlled substance prescriptions/regimen. As per [place] [facility] through [place] pharmacy: Eszopiclone 1 Mg Tablet, ativan 0.5mg bid January 2025 and prev xanax buttermaker until December 2024. Pt is not on stimulant regimen and reports not having a history of ADD or ADHD and Agreeable to discontinuing order stimulant. Will order Ambien as Eszopiclone not available 02/22: Unclear if ECT is scheduled for Sunday. No pre-ECT orders written. Will hold ambien and ativan for now and keep NPO in the morning in case she is scheduled. 02/23: no anesthesiologists available for ECT. case D/W pt's outpt MD at the [place], Elza De La Torre MD. dandre was considering augmentation with brexulti, caplyta, or pramipexole. reported akathisia with abilify at high dose, but it was effective until then. 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 ECT scheduled for tomorrow afternoon at 1300. 02/24: ECT #1 completed today. ECT #2 scheduled for tomorrow morning. no change in presentation, continue current mgmt. 02/25: ECT #2 completed without jaw pain or DIOP after. continues to feel anxious and depressed. change wellbutrin SR 100 BID to XL 300 daily. start caplyta 42 mg daily when available from [facility] [place]. 02/26: attempting to get [place] approval of caplyta. ECT #3 tomorrow. anxious. no other notable events or behaviors. 02/27: ECT#3 completed without complication. [place] prescriber sent Rx for caplyta to [facility] pharmacy. 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 otherwise continue current mgmt. pt informed next ECT will be next . 02/28: Active on unit, social with peers. attending groups. Patient reports feeling pretty well today; she reports decreased anxiety, however states she always has depression . denies SI/HI/VH/AH. per nursing, slept 8 hours last night. Continue current tx plan 03/01: Continue current tx plan. 03/02: continue tx plan. 03/03: ECT #4 tomorrow. stable, mood improved from admission. 03/04: ECT completed without incident. stable. continue current mgmt. 03/05: stably improved. planning for final ECT sunday. unsure to discharge home versus back to [place] inpatient. ECT #5 tomorrow. 03/06: ECT #5 completed without incident. planning for #6 on sunday then DC sunday to [place] inpatient unit in [place], [place]. mood remains improved. continue current mgmt. 03/07 continue tx. 03/08 continue tx. Reason for continued inpatient stay Substantial Risk for: inability to function Time Spent With Patient Time: Total time managing care of this patient today ____ minutes.
[2025-03-09] VITALS (12 sets, daily range): BP systolic 117–156; BP diastolic 61–94; PULSE 61–80; RESP 14–18; TEMP 3.1–37.6; O2SAT 95–99
[2025-03-09] MEDS: Levothyroxine Sodium 50 MCG TABLET PO (06:34)
--- NOTE | 2025-03-09 09:15 | PC.NURSE ---
Scheduled AM medications held due to scheduled ECT treatment.
--- NOTE | 2025-03-09 10:30 | P.DS_ITS ---
DS: Providers Provider Date of Service: 03/09/25 Date of admission: 02/19/25 13:44 Date of discharge: 03/10/25 Primary care physician: Melisa Mcdonald NP Consults: 02/19/25 14:55 Consult to Hospitalist Routine Comment: Consulting Provider: [facility] Reason For Exam: new admit, H&P 02/20/25 10:44 Consult to Hospitalist Routine Comment: Consulting Provider: [facility] Reason For Exam: ECT risk stratification DS: Diagnosis Discharge Diagnosis (1) Major depressive disorder with current active episode: Status: Acute (2) Hypothyroidism: Status: Acute (3) HTN (hypertension): Status: Acute (4) Sleep apnea: Status: Acute DS: Medications Discharge Medications Home Medications: Home Medications ?Medication ?Instructions ?Recorded ?Confirmed acetaminophen 650 mg tablet 650 mg PO Q6H PRN Pain (Scale 02/19/25 02/19/25 Score 1-3) alprazolam 0.25 mg tablet 0.25 mg PO DAILY PRN Anxiety 02/19/25 02/19/25 amlodipine 2.5 mg tablet 2.5 mg PO BID 02/19/25 02/19/25 calcium 500 mg (as 2 tab PO DAILY 02/19/25 02/19/25 carbonate)-vitamin D3 5 mcg (200 unit) tablet (Calcium 500 + D) cetirizine 10 mg tablet 10 mg PO DAILY 02/19/25 02/19/25 eszopiclone 1 mg tablet 1 mg PO BEDTIME 02/19/25 02/19/25 fluticasone propionate 50 1 spray intranasal DAILY 02/19/25 02/19/25 mcg/actuation nasal spray,suspension levothyroxine 50 mcg tablet 50 mcg PO DAILY 02/19/25 02/19/25 lithium carbonate 600 mg capsule 600 mg PO BEDTIME 02/19/25 02/19/25 polyethylene glycol 3350 17 gram 17 g PO DAILY PRN Constipation 02/19/25 02/19/25 oral powder packet sennosides 8.6 mg tablet (senna) 8.6 mg PO BEDTIME PRN Constipation 02/19/25 02/19/25 Previous Rx's ?Medication ?Instructions ?Recorded bupropion HCl 300 mg 24 hr tablet, 300 mg PO DAILY #0 tabs 03/09/25 extended release Mental Status Exam Mental Status Exam Narrative: well dressed and kempt. mild PMR. cooperative. speech decr amount, nml rate, soft, nml latency. thoughts linear and logical. affect flexible, normo- intense, non-labile. mood fine. no SI/SIBI/HI/AVH. DS: Summary Hospital Course Hospital Course: per 02/20/25 admission note: HPI Narrative: pt reports she has been transferred from the [place] inpatient unit in [place], [place], after an approximately 2 week stay, for ECT. per her report and [facility], pt recently attempted suicide via CO poisoning, running her car in the garage with a hose pumping exhaust into the car cabin. she reportedly became freaked out after doing this for 25 minutes so went back into the house and told her what she had done. on interview with pt, Hx reviewed, meds reviewed, reconciled, prescribed. pt informed of process for ECT clearance and possibility of ECT starting as soon as sunday. pt in agreement with plan. Past Psychiatric History: hosps: more than 12 SA: h/o 2. index event of CO poisoning and a hanging attempt about 5 years ago. SIB: denies outpt: [place] [facility] de la torre does meds Medical Evaluation Reviewed: Yes PMFSH Family History: maternal aunt - unknown mental illness maternal uncles - alcohol Social History: lives in [place], [place], in a house she owns with her . her college-aged son is home with them for the summer. reports her partner works and she is retired aith 100% service connected disability payments from the [facility]. highest education level attained is a degree in [employer] and [employer] repair. Substance History: denies use of all substances including nicotine/tobacco, cannabis, and alcohol. Trauma History: denies Precis: 02/20: continue home meds. [place] new [place]anax from [facility] as well as home esta. EKG, hospitalist consult for ECT risk stratification. ECT sunday. 02/21: uncertainty around controlled substance prescriptions/regimen. As per [place] [facility] through [place] pharmacy: Eszopiclone 1 Mg Tablet, ativan 0.5mg bid January 2025 and prev xanax skilled nursing until December 2024. Pt is not on stimulant regimen and reports not having a history of ADD or ADHD and agreeable to discontinuing order stimulant. Will order Ambien as Eszopiclone not available. 02/22: Unclear if ECT is scheduled for Sunday. No pre-ECT orders written. Will hold ambien and ativan for now and keep NPO in the morning in case she is scheduled. DMT DCed due to contraindication with ECT. 02/23: no anesthesiologists available for ECT. case D/W pt's outpt MD at the [place], Elza De La Torre MD. dandre was considering augmentation with brexulti, caplyta, or pramipexole. reported akathisia with abilify at high dose, but it was effective until then. 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 ECT scheduled for tomorrow afternoon at 1300. 02/24: ECT #1 completed today. ECT #2 scheduled for tomorrow morning. no change in presentation, continue current mgmt. 02/25: ECT #2 completed without jaw pain or DIOP after. continues to feel anxious and depressed. change wellbutrin SR 100 BID to XL 300 daily. start caplyta 42 mg daily when available from [facility]. 02/26: attempting to get [place] approval of caplyta. ECT #3 tomorrow. anxious. no other notable events or behaviors. 02/27: ECT#3 completed without complication. [place] prescriber sent Rx for caplyta to [facility] pharmacy. 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 otherwise continue current mgmt. pt informed next ECT will be next . 02/28: Active on unit, social with peers. attending groups. Patient reports feeling pretty well today; she reports decreased anxiety, however states she always has depression . denies SI/HI/VH/AH. per nursing, slept 8 hours last night. Continue current tx plan. pt opted to NOT start caplyta inpatient as per plan discussed with Dr. De La Torre, pt's outpt psych MD (pt aware the caplyta plan was Dr. De La Torre' initiative). pt plans to discus further med changes with Dr. De La Torre once outpt. 03/01: Continue current tx plan. 03/02: continue tx plan. 03/03: ECT #4 tomorrow. stable, mood improved from admission. 03/04: ECT completed without incident. stable. continue current mgmt. 03/05: stably improved. planning for final ECT sunday. unsure to discharge home versus back to [facility]. ECT #5 tomorrow. 03/06: ECT #5 completed without incident. planning for #6 on sunday then DC sunday to [place] inpatient unit in [place], [place]. mood remains improved. continue current mgmt. 03/07 continue tx. 03/08 continue tx. 03/09: ECT #6 this afternoon. transfer [facility]. meds reviewed, reconciled. mood improved from admission, denies SI/SIBI. 03/10: ECT #6 completed without incident yesterday. discharged to [place] inpatient in [facility] as per plan. Time Spent with Patient Time attestation: Total time managing care of this patient today __35__ minutes. Discharge Plan Discharge Anticipated Discharge Date/Time: 03/10/25 11:00 Patient Disposition: Xfer Acute Care Hospital Discharge Diagnosis: Major Depressive Disorder, Recurrent, Severe Referrals: Melisa Mcdonald, PHOTO MASK PATTERN GENERATOR [Primary Care Provider] - 1 Week Discharge Medications: New bupropion HCl 300 mg Tablet Extended Release 24 Hr 300 mg PO DAILY Qty: 0 0RF Continued sennosides [senna] 8.6 mg Tablet 8.6 mg PO BEDTIME PRN (Reason: Constipation) polyethylene glycol 3350 17 gram Powder In Packet 17 g PO DAILY PRN (Reason: Constipation) cetirizine 10 mg Tablet 10 mg PO DAILY amlodipine 2.5 mg Tablet 2.5 mg PO BID Rx Instructions: hold if SBP <110 acetaminophen 650 mg Tablet 650 mg PO Q6H PRN (Reason: Pain (Scale Score 1-3)) alprazolam 0.25 mg Tablet 0.25 mg PO DAILY PRN (Reason: Anxiety) levothyroxine 50 mcg Tablet 50 mcg PO DAILY fluticasone propionate 50 mcg/actuation [place],Suspension 1 spray INTRANASAL DAILY Rx Instructions: administer into each nostril eszopiclone 1 mg Tablet 1 mg PO BEDTIME calcium carbonate-vitamin D3 [Calcium 500 + D] 500 mg-5 mcg (200 unit) Tablet 2 tab PO DAILY lithium carbonate 600 mg Capsule 600 mg PO BEDTIME Discontinued dextroamphetamine sulfate 15 mg Capsule, Extended Release 15 mg PO BID bupropion HCl 100 mg Tablet Sustained-Release 12 Hr 100 mg PO BID Discharge Orders: Discharge Order (Routine); Ordered 03/10/25 Ordered By: Neri Hussein Diet: Advance to usual diet Activity on Discharge: As tolerated Stand Alone Forms: Patient Portal Discharge page Print Language: Malay Care Plan Goals: remain safe and stable in the outpatient treatment setting Health Concerns: none Plan of Treatment: take medications as prescribed, attend appointments as scheduled Assessment: not at imminent risk of harm to self or others
--- NOTE | 2025-03-09 14:09 | HO.ANESPROP2 ---
[facility] Active Problems Active Problems: All Active Problems Generalized anxiety disorder (Acute) Seasonal allergies (Acute) Sleep apnea (Acute) Hypothyroidism (Acute) HTN (hypertension) (Acute) Osteopenia (Acute) Major depressive disorder with current active episode (Acute) Family History Family history of problems with anesthesia: No Surgical History History of Problems with Anesthesia: No Social History Social History Household Members: Significant Other and Children Housing: House Do you presently have visiting nurse or other home services: No Patient Tobacco Use Status: Never used Tobacco e-Cigarette/Vaping Use: Never Used Currently Displaying Signs/Symptoms of Drug Intoxication Withdrawal: No Have you been hit, kicked, punched, or otherwise hurt by someone within the past year? If so, by whom?: No Do you feel safe in your current relationship?: No Is there a partner from a previous relationship who is making you feel unsafe now?: No Are you made to feel afraid or neglected: No Are you DNR?: No Advance Directives: No Advance Directives Information Provided: Yes Do you have thoughts of harming others: None Do you have a plan to hurt others: No Plan Recently lost weight without trying: No Eating poorly because of decreased appetite: No Nutrition Risks: No Nutritional Risk Patient : No : No Poor oral hygiene: No service: Yes Sexual orientation: Lesbian/Jones/Homosexual Meds Allergies Allergy/AdvReac Type Severity Reaction Status Date / Time lamotrigine Allergy Rash Verified 02/19/25 14:55 Active Medications: Current Medications Acetaminophen (Acetaminophen 325 Mg Tablet) 650 mg PO Q6H PRN PRN Reason: Headache/Pain, Scale 1-10 Last Admin: 03/03/25 11:42 Dose: 650 mg Al Hydroxide/Mg Hydroxide (Magnesium Hydrox/Alum Hydrox 30 Ml Oral.Susp) 30 ml PO Q6H PRN PRN Reason: Heartburn/Nausea Amlodipine Besylate (Amlodipine Besylate 2.5 Mg Tablet) 2.5 mg PO DAILY DEEPA; Protocol Last Admin: 03/09/25 09:14 Dose: Not Given Bupropion HCl (Bupropion Hcl Xl 300 Mg Tab.Er.24h) 300 mg PO DAILY DEEPA Last Admin: 03/09/25 09:14 Dose: Not Given Calcium Carbonate/Cholecalciferol (Calcium + Vitamin D 250 Mg Tablet) 1,[address] [facility] Last Admin: 03/09/25 09:15 Dose: Not Given Fluticasone Propionate (Fluticasone Propionate Nasal 16 Gm [place]) 1 spray NOSTRIL-B DAILY [facility] Last Admin: 03/09/25 09:15 Dose: Not Given Hydroxyzine HCl (Hydroxyzine Hcl 25 Mg Tablet) 25 mg PO Q6H PRN PRN Reason: mild anxiety Last Admin: 03/08/25 20:27 Dose: 25 mg Levothyroxine Sodium (Levothyroxine Sodium 50 Mcg Tablet) 50 mcg PO DAILY@0600 [facility] Last Admin: 03/09/25 06:34 Dose: 50 mcg Anchor Carbonate (Anchor Carbonate 300 Mg Capsule) [address] [facility] Last Admin: 03/08/25 20:03 Dose: Not Given Lorazepam (Lorazepam 0.5 Mg Tablet) 0.5 mg PO Q4H PRN PRN Reason: severe anxiety Last Admin: 03/07/25 20:30 Dose: 0.5 mg Magnesium Hydroxide (Milk Of Magnesia 30 Ml Oral.Susp) 30 ml PO DAILY PRN PRN Reason: Constipation Last Admin: 03/05/25 14:39 Dose: 30 ml Polyethylene Glycol (Polyethylene Glycol 3350 17 Gm Powd.Pack) 17 gm PO DAILY PRN PRN Reason: Constipation Last Admin: 03/03/25 08:24 Dose: 17 gm Senna (Sennosides 8.6 Mg Tablet) 17.2 mg PO BEDTIME PRN PRN Reason: Constipation Last Admin: 03/02/25 08:35 Dose: 17.2 mg Home Medications ?Medication ?Instructions ?Recorded ?Confirmed ?Last Taken ?Type acetaminophen 650 mg tablet 650 mg PO Q6H PRN Pain (Scale 02/19/25 02/19/25 Unknown History Score 1-3) alprazolam 0.25 mg tablet 0.25 mg PO DAILY PRN Anxiety 02/19/25 02/19/25 Unknown History amlodipine 2.5 mg tablet 2.5 mg PO BID 02/19/25 02/19/25 02/19/25 History calcium 500 mg (as 2 tab PO DAILY 02/19/25 02/19/25 02/19/25 History carbonate)-vitamin D3 5 mcg (200 unit) tablet (Calcium 500 + D) cetirizine 10 mg tablet 10 mg PO DAILY 02/19/25 02/19/25 02/19/25 History eszopiclone 1 mg tablet 1 mg PO BEDTIME 02/19/25 02/19/25 Unknown History fluticasone propionate 50 1 spray intranasal DAILY 02/19/25 02/19/25 Unknown History mcg/actuation nasal spray,suspension levothyroxine 50 mcg tablet 50 mcg PO DAILY 02/19/25 02/19/25 02/19/25 History lithium carbonate 600 mg capsule 600 mg PO BEDTIME 02/19/25 02/19/25 Unknown History polyethylene glycol 3350 17 gram 17 g PO DAILY PRN Constipation 02/19/25 02/19/25 Unknown History oral powder packet sennosides 8.6 mg tablet (senna) 8.6 mg PO BEDTIME PRN Constipation 02/19/25 02/19/25 Unknown History Exam Height,Weight and Vital Signs: Height 5 ft 5 in Weight 70.942 kg Last Vital Signs Temp 98.3 F 03/09/25 12:49 Pulse 65 03/09/25 13:49 Resp 16 03/09/25 13:49 BP 153/66 H 03/09/25 13:49 Pulse Ox 95 03/09/25 13:49 O2 Del Method Room Air 03/09/25 13:49 O2 Flow Rate 2 03/06/25 08:00 Pertinent Lab Results Pertinent Lab Results: Laboratory Tests 02/20/25 08:09 Sodium 141 Potassium 4.5 Chloride 111 H Carbon Dioxide 26 Anion Gap 9 L BUN 11 Creatinine 0.79 Estim Creat Clear Calc 67.9 Estimated GFR > 60 Random Glucose 86 Estimat Average Glucose 103 Hemoglobin A1c % 5.2 Calcium 9.6 Total Bilirubin 0.3 AST 22 ALT 23 Alkaline Phosphatase 64 Total Protein 6.0 L Albumin 3.7 Triglycerides 161 H Cholesterol 247 H LDL Cholesterol, Calc 157 H HDL Cholesterol 58 Airway Mallampati Class: II TM Dist: >3cm Neck ROM: Full Loose/Missing/Broken Teeth: No Heart: RRR Lungs: CTA Assessment and Plan Assessment Anesthesia Assessment: Anesthesia Plan Discussed and Chart Reviewed Final Anesthetic Review Family History of Problems with Anesthesia: No History of Problems with Anesthesia: No NPO: Yes ASA Class: II Final Preanesthetic Review: Meds/Allgs Chart Reviewed, Consent Obtained/Reviewed and Anes Risks/Benef Reviewed Patient Risk: Low Procedure Risk: Intermediate Anesthetic Plan Anesthetic Plan: GA Disposition: Standard PACU
--- NOTE | 2025-03-09 14:14 | MHC.SHP ---
Pre-Procedural Eval Section A - 24 Hr Update-Section A only Date of Service: 03/09/25 The patient is an INPATIENT: Yes Changes since office visit: Yes Patient answered all questions; No Cold of Flu in the past 2 weeks, No New Medical Problems and No Changes in Medication The patient has been examined within 24 hours of the surgical procedure. The History & Physical has been completed within 30 days and I have reviewed it.: Yes Section B - Complete if H&P > 30 days Chief Complaint: MDD Allergies: Allergies Allergy/AdvReac Type Severity Reaction Status Date / Time lamotrigine Allergy Rash Verified 02/19/25 14:55 Plan I have reviewed the history and physical and performed a pertinent physical examination on my patient. No changes have occurred unless specified. Time Spent With Patient Time: Total time managing care of this patient today ____ minutes.
--- NOTE | 2025-03-09 14:15 | HO.ECTPROC ---
ECT Procedure Note Diagnosis/Treatment Date of Service: 03/09/25 Diagnosis: Major Depressive Disorder Previous ECT Date: 03/06/25 Current Treatment Number: 6 Treatment: Series Interval Clinical Notes: mood improved, no c/o side effects brevital lowered by 10 mg anaesthesia recommends inc back to 80 mg consider bf if not improved Time: Total time managing care of this patient today ____ minutes. ECT Settings Device: THYMATRON DGx Electrode Placement: Right Unilateral Program/Pulse Width: 0.50 Energy Percent: 100 Seizure Duration By EEG (in seconds): 26 Medications Administration General Anesthetic: Methohexital (80) Muscle Relaxant: Succinylcholine (90) Ancillary Medications Analgesics: Torodol - Pre ECT (15) Anti-emetics: Zofran - Pre ECT Miscillaneous Medications: Other (lidocaine) Airway Management Airway Management: Bag Mask Ventilation
[2025-03-09] MEDS: buPROPion HCl XL 300 MG TAB.ER.24H PO (16:03)
[2025-03-09] MEDS: Calcium + Vitamin D 250 MG TABLET 1000 MG PO (16:03)
[2025-03-09] MEDS: Fluticasone Propionate Nasal 16 GM SPRAY 1 SPRAY NOSTRIL-B (16:04)
[2025-03-09] MEDS: amLODIPine Besylate 2.5 MG TABLET PO (16:18)
--- NOTE | 2025-03-09 17:13 | PC.NURSE ---
Dr. Hussein authorized administration of AM medications upon return from ECT. Medications administered as ordered.
[2025-03-09] MEDS: Lithium Carbonate 300 MG CAPSULE 600 MG PO (20:56)
[2025-03-09] MEDS: hydrOXYzine HCL 25 MG TABLET PO (20:56)
[2025-03-10] MEDS: Levothyroxine Sodium 50 MCG TABLET PO (06:41)
[2025-03-10 08:00] VITALS: BP 122/75; PULSE 66; RESP 14; TEMP 36.8; O2SAT 97
[2025-03-10] MEDS: Fluticasone Propionate Nasal 16 GM SPRAY 1 SPRAY NOSTRIL-B (08:28)
[2025-03-10 08:29] VITALS: BP 122/75
[2025-03-10] MEDS: amLODIPine Besylate 2.5 MG TABLET PO (08:29)
[2025-03-10] MEDS: Calcium + Vitamin D 250 MG TABLET 1000 MG PO (08:30)
[2025-03-10] MEDS: buPROPion HCl XL 300 MG TAB.ER.24H PO (08:30)
[2025-03-10 11:34] LABS: COVID-19 Test Negative (Negative); IDNOW Serial# 55D5AD1C
== END 2025-03-10 14:15 | disposition short-term general hospital (02) | DRG 881 ==
PROVIDERS: Psychiatry & Neurology Psychiatry; Registered Nurse; Admitting Provider Psychiatry & Neurology Psychiatry; PCP Nurse Practitioner Family; Referring Provider Psychiatry & Neurology Psychiatry; Visit Provider Psychiatry & Neurology Psychiatry
PROC: GZB4ZZZ Other Electroconvulsive Therapy (ICD-10-PCS; CPT 90870; principal; 2025-02-24 14:00)
DX: F32.9 Major depressive disorder, single episode, unspecified (principal); E03.9 Hypothyroidism, unspecified; I10 Essential (primary) hypertension; J30.2 Other seasonal allergic rhinitis; G47.33 Obstructive sleep apnea (adult) (pediatric); K59.00 Constipation, unspecified; Z20.822 Contact with and (suspected) exposure to COVID-19; Z91.51 Personal history of suicidal behavior; Z79.51 Long term (current) use of inhaled steroids; Z79.890 Hormone replacement therapy; Z79.899 Other long term (current) drug therapy
CPT/HCPCS: 36415; 80053; 80061; 83036; 87635; 90870; 93005; J0330; J1596; J1805; J1885; J2003; J2704; J7120

== ENCOUNTER 2025-02-19 13:44 | Outpatient (BNV) | payer OTHER, SELFPAY | END 2025-02-20 11:26 | PROVIDERS: Admitting Provider Psychiatry & Neurology Psychiatry; PCP Nurse Practitioner Family; Responsible Provider Registered Nurse; Visit Provider Internal Medicine Cardiovascular Disease | DX: R94.31 Abnormal electrocardiogram [ECG] [EKG] (principal); I49.9 Cardiac arrhythmia, unspecified | CPT/HCPCS: 93010 ==

== ENCOUNTER → 2025-02-19 13:44 | Outpatient (BNV) | payer OTHER, SELFPAY | PROVIDERS: Admitting Provider Psychiatry & Neurology Psychiatry; PCP Nurse Practitioner Family; Responsible Provider Registered Nurse; Visit Provider Psychiatry & Neurology Psychiatry | DX: F32.2 Major depressive disorder, single episode, severe without psychotic features (principal); E03.9 Hypothyroidism, unspecified; I10 Essential (primary) hypertension; G47.30 Sleep apnea, unspecified | CPT/HCPCS: 90792; 90870; 99232 ==

== ENCOUNTER → 2025-02-19 13:44 | Outpatient (BNV) | payer OTHER, SELFPAY | PROVIDERS: Admitting Provider Psychiatry & Neurology Psychiatry; PCP Nurse Practitioner Family; Visit Provider Nurse Practitioner Family | DX: F32.9 Major depressive disorder, single episode, unspecified (principal) | CPT/HCPCS: 99429; 99499 ==

== ENCOUNTER → 2025-02-19 13:44 | Outpatient (BNV) | payer OTHER, SELFPAY | PROVIDERS: Admitting Provider Psychiatry & Neurology Psychiatry; PCP Nurse Practitioner Family; Visit Provider Psychiatry & Neurology Psychiatry | DX: F33.2 Major depressive disorder, recurrent severe without psychotic features (principal) | CPT/HCPCS: 90870 ==